=== PATIENT | male | born 1950 | race Two or more races ===

== ENCOUNTER → 2020-06-23 08:53 | Outpatient (BNVA) | payer OTHER, MEDICARE, SELFPAY | PROVIDERS: PCP Physician Assistant; Visit Provider Family Medicine Adult Medicine | DX: M96.1 Postlaminectomy syndrome, not elsewhere classified (principal); Z98.1 Arthrodesis status; Z79.891 Long term (current) use of opiate analgesic | CPT/HCPCS: 99214 ==

== ENCOUNTER 2020-06-26 08:08 | Outpatient (REF) | payer MEDICARE, SELFPAY ==
[2020-06-26 09:00] LABS: Basophils Absolute Auto 0.1 X10*3/uL (0.0-0.2); Basophils Percent Auto 0.7 % (0-2); Eosinophils Absolute Auto 0.4 X10*3/uL (0.0-0.4); Eosinophils Percent Auto 4.4 % (0-4); Hematocrit 41.4 % (42-52); Hemoglobin 13.9 g/dl (14.0-18.0); Imm Gran Abs Auto 0.02 X10*3/uL (0.00-0.03); Imm Gran Pct Auto 0.2 % (0.0-0.4); Lymphocytes Absolute Auto 2.9 X10*3/uL (1.2-4.9); Lymphocytes Percent Auto 34.1 % (20-40); MANUAL DIFF FLAG NO; Mean Corpuscular HGB Conc 33.6 g/dl (31.0-36.0); Mean Corpuscular Hemoglobin 30.9 pg (27.0-33.0); Mean Platelet Volume 10.2 fL (9.4-12.4); Monocytes Absolute Auto 0.9 X10*3/uL (0.1-1.2); Monocytes Percent Auto 10.2 % (2-11); Neutrophils Absolute Auto 4.3 X10*3/uL (2.0-8.3); Neutrophils Percent Auto 50.4 % (45-73); Platelet Count 220 X10*3/uL (160-400); Red Cell Distribution Width 13.3 % (11.0-16.0); White Blood Count 8.6 X10*3/uL (4.8-10.8)
[2020-06-26 09:33] LABS: Alanine Aminotransferase 17 U/L (0-40); Albumin Level 3.9 g/dL (3.5-5.0); Alkaline Phosphatase 112 U/L (39-117); Anion Gap 12 (12-20); Aspartate Amino Transferase 20 U/L (5-37); Bilirubin Total 0.5 mg/dL (0.0-1.0); Blood Urea Nitrogen 19 mg/dL (9-16); Calcium 8.7 mg/dL (8.4-10.2); Carbon Dioxide 29 mmol/L (22-29); Chloride 103 mmol/L (96-108); Cholesterol 112 mg/dL; Estimated Glomerular Filt Rate > 60; Glucose Fasting 103 mg/dL (60-99); HDL Cholesterol 24 mg/dL; LDL Cholesterol Calculated 71 mg/dl; Potassium 4.6 mmol/l (3.3-5.1); Sodium 139 mmol/L (135-145); Triglycerides 89 mg/dL
[2020-06-26 09:54] LABS: TSH reflex Free T4 1.25 mIU/mL (0.32-4.0)
[2020-06-26 12:04] LABS: Creatinine Urine 106.04 mg/dL; Microalbum/Creatinine Ratio Ur 11.3 ug/mg cr
== END 2020-06-26 08:09 | disposition home or self-care (01) ==
LOC: HO.LAB 08:08
PROVIDERS: Visit Provider Physician Assistant
DX: E11.9 Type 2 diabetes mellitus without complications (principal)
CPT/HCPCS: 36415; 80053; 80061; 82043; 84443; 85025

== ENCOUNTER → 2020-07-21 11:03 | Outpatient (BNVA) | payer OTHER, MEDICARE, SELFPAY | PROVIDERS: PCP Physician Assistant; Visit Provider Family Medicine Adult Medicine | DX: M96.1 Postlaminectomy syndrome, not elsewhere classified (principal); M54.12 Radiculopathy, cervical region; Z79.891 Long term (current) use of opiate analgesic | CPT/HCPCS: 99212 ==

== ENCOUNTER 2020-07-31 11:35 | Outpatient (REF) | payer MEDICARE, SELFPAY | END 2020-07-31 11:36 | disposition home or self-care (01) | LOC: HO.LAB 11:35 | PROVIDERS: PCP Physician Assistant; Visit Provider Internal Medicine | DX: Z20.828 Contact with and (suspected) exposure to other viral communicable diseases (principal) | CPT/HCPCS: C9803; U0003 ==

== ENCOUNTER 2020-08-11 17:47 | Emergency (ER) | payer MEDICARE, SELFPAY ==
[2020-08-11 18:00] VITALS: BP 134/72; PULSE 99; RESP 16; TEMP 37; O2SAT 99; BMI 32.1
--- NOTE | 2020-08-11 18:29 | ECG_ITS ---
Test Reason : VOMITING Blood Pressure : / mmHG Vent. Rate : 092 BPM Atrial Rate : 092 BPM P-R Int : 198 ms QRS Dur : 094 ms QT Int : 354 ms P-R-T Axes : 016 060 020 degrees QTc Int : 437 ms Normal sinus rhythm Normal ECG When compared with ECG of 23-MAR-2015 12:31, No significant changes seen Referred By: Tra Sarmiento Electronically Signed By:DIPESH SINGH
--- NOTE | 2020-08-11 18:30 | CT_ITS ---
EXAMINATION: CT ABDOMEN AND PELVIS WITH CONTRAST CLINICAL INFORMATION: Abdominal pain, diarrhea COMPARISON: 08/01/2015 TECHNIQUE: Multidetector volumetric images were obtained from the superior aspect of the liver through the pubic symphysis following administration 85 mL of Omnipaque 350 intravenous contrast. Sagittal and coronal reformatted images were obtained on the technologist's workstation. Oral contrast: No This CT examination was performed using dose optimization techniques as appropriate, variously including the following: *Automated exposure control *Adjustment of mA and/or kV according to patient size (this includes techniques or standardized protocols for targeted exams where dose is matched to indication/reason for exam; i.e. extremities or head) *Use of iterative reconstruction technique DLP: 578 mGy-cm FINDINGS: LUNG BASES: Patchy areas of groundglass opacity are seen in the lung bases, predominantly posteriorly but also seen in the right middle lobe. The findings are new/worsened from the prior study 08/01/2015. LIVER, GALLBLADDER, AND BILIARY TREE: The liver is normal in size, shape, and attenuation. No focal hepatic lesion or biliary ductal dilatation is present. The gallbladder is unremarkable with no evidence of radiopaque gallstones, gallbladder wall thickening, or obvious pericholecystic inflammatory changes. PANCREAS: Unremarkable. SPLEEN: Unremarkable. ADRENAL GLANDS: There is thickening of the adrenal gland but no discrete mass. Normal right adrenal gland. KIDNEYS AND URETERS: There are bilateral renal cysts. Symmetric bilateral renal enhancement. No hydronephrosis. No calculi. BLADDER: UnremarkUnremarkable.ROINTESTINAL TRACT: Stomach and small bowel are nondilated. The appendix is not seen but there are no right lower quadrant inflammatory changes to suggest appendicitis. There is abnormal wall thickening and hyperemia of the terminal ileum, for example image 65/89 and coronal image 39/81 there is slight prominence of the adjacent vasa recta. There is a lesser degree of mild somewhat equivocal wall thickening proximally, for example image 50/89. No evidence of colitis or diverticulitis. ABDOMINAL WALL: No signiNo significant hernia is appreciated.H NODES: Normal. Normal.AR: Normal caliber aorta. Severe circumferential calcified atherosclerotic changes. PELVIC VISCERA: Normal prostate and seminal vesicles. OSSEOUS STRUCTURES: Postoperative changes at L5-S1. Multilevel degenerative changes. CT/CT abdomen pelvis w con IMPRESSION: There is abnormal wall thickening and hyperemia of the terminal ileum with a lesser degree of wall thickening involving the distal ileum. This is a nonspecific finding, most likely an infectious or inflammatory ileitis given the clinical history. Patchy groundglass opacities are seen in the lung bases. Although the appearance is nonspecific, pneumonitis including viral pneumonitis could give this appearance.
[2020-08-11] MEDS: 0.9 % Sodium Chloride 1,000 ML 999 ML IV (19:08)
[2020-08-11 19:15] LABS: Basophils Percent Auto 0.1 % (0-2); Eosinophils Percent Auto 0.3 % (0-4); Hematocrit 39.3 % (42-52); Hemoglobin 13.6 g/dl (14.0-18.0); Imm Gran Abs Auto 0.02 X10*3/uL (0.00-0.03); Imm Gran Pct Auto 0.3 % (0.0-0.4); Lymphocytes Absolute Auto 1.2 X10*3/uL (1.2-4.9); Lymphocytes Percent Auto 17.2 % (20-40); Mean Corpuscular HGB Conc 34.6 g/dl (31.0-36.0); Mean Corpuscular Hemoglobin 30.5 pg (27.0-33.0); Mean Corpuscular Volume 88.1 fL (80-98); Mean Platelet Volume 10.3 fL (9.4-12.4); Monocytes Absolute Auto 0.7 X10*3/uL (0.1-1.2); Monocytes Percent Auto 9.5 % (2-11); Neutrophils Percent Auto 72.6 % (45-73); Platelet Count 182 X10*3/uL (160-400); Red Blood Count 4.46 X10*6/uL (4.60-5.80); Red Cell Distribution Width 13.3 % (11.0-16.0); White Blood Count 6.9 X10*3/uL (4.8-10.8)
[2020-08-11 19:16] LABS: MANUAL DIFF FLAG NO
[2020-08-11] MEDS: ondansetron HCL 4 MG/2 ML VIAL IVPUSH (19:16)
[2020-08-11 19:20] LABS: INTERNATIONAL NORM RATIO 1.3 (0.9-1.1); Prothrombin Time 15.9 SEC (10.8-13.0)
[2020-08-11 19:39] LABS: Alanine Aminotransferase 28 U/L (0-40); Albumin Level 3.8 g/dL (3.5-5.0); Alkaline Phosphatase 85 U/L (39-117); Anion Gap 13 (12-20); Aspartate Amino Transferase 30 U/L (5-37); Bilirubin Total 0.9 mg/dL (0.0-1.0); Blood Urea Nitrogen 12 mg/dL (9-16); Calcium 8.1 mg/dL (8.4-10.2); Carbon Dioxide 25 mmol/L (22-29); Chloride 102 mmol/L (96-108); Estimated Glomerular Filt Rate > 60; Glucose Random 123 mg/dL (60-115); Potassium 3.9 mmol/l (3.3-5.1); Sodium 136 mmol/L (135-145); Total Protein 6.9 g/dL (6.5-8.0)
[2020-08-11] MEDS: iohexoL 350 MG/ML 100 ML INFUS..BTL IV (20:02)
[2020-08-11 20:16] LABS: Influenza A PCR NEGATIVE (Negative); Influenza B PCR NEGATIVE (Negative); Resp Syncy Virus RNA Qual PCR NEGATIVE (Negative); SARS COV2 PCR INHOUSE POSITIVE (Negative)
--- NOTE | 2020-08-11 21:08 | ED_ITS ---
HPI - Nausea/Vomiting/Diarrhea General Chief complaint: Nausea/Vomiting/Diarrhea Stated complaint: DIARRHEA,ABD PAIN,WEAKNESS Time Seen by Provider: 08/11/20 18:24 Source: patient and EMS Mode of arrival: EMS Limitations: no limitations History of Present Illness HPI Narrative: 70-year-old male with past medical history significant for coronary artery disease status post MD and stenting in 2000, hypertension, de pression, chronic back pain, hyperlipidemia, diabetes who presents today with complaint of ongoing nausea vomiting diarrhea on off for the past 2 weeks. He otherwise denies any chest pain or shortness of breath. States every time he eats something he will have a better of stomach pain and diarrhea. He denies any fever or chills. No runny nose/congestion or cough. MD elicited complaint: nausea, vomiting, diarrhea and abdominal pain Description of vomiting: watery Associated nausea: Yes Associated abdominal pain: Yes Location of pain: diffuse Severity: moderate Quality: cramping Associated symptoms: denies other symptoms Related Data Home Medications Medication Instructions Recorded Confirmed amlodipine 10 mg tablet 10 mg PO DAILY 06/22/20 07/21/20 atorvastatin 80 mg tablet 80 mg PO DAILY 06/22/20 07/21/20 clonazepam 0.5 mg tablet 0.5 mg PO Q12H 06/22/20 07/21/20 clopidogrel 75 mg tablet 75 mg PO DAILY 06/22/20 07/21/20 cyclobenzaprine 10 mg tablet 10 mg PO Q8H PRN 06/22/20 07/21/20 fluoxetine 20 mg capsule 80 mg PO DAILY 06/22/20 07/21/20 fluticasone propionate 50 1 spray INTRANASAL DAILY 06/22/20 07/21/20 mcg/actuation nasal spray,suspension gabapentin 800 mg tablet 800 mg PO Q8H 06/22/20 07/21/20 glipizide 2.5 mg tablet, extended 2.5 mg PO DAILY 06/22/20 07/21/20 release 24 hr losartan 100 1 tab PO DAILY 06/22/20 07/21/20 mg-hydrochlorothiazide 25 mg tablet metformin 1,000 mg tablet 1,000 mg PO BID 06/22/20 07/21/20 metoprolol tartrate 100 mg tablet 100 mg PO BID 06/22/20 07/21/20 omeprazole 20 mg capsule,delayed 20 mg PO DAILY 06/22/20 07/21/20 release tramadol 50 mg tablet 50 mg PO Q8H 06/22/20 07/21/20 triamcinolone acetonide 0.5 % applic TOPICAL BID 06/22/20 07/21/20 topical cream Previous Rx's Medication Instructions Recorded blood sugar diagnostic 1 strip MISCELLANEOUS DAILY 30 06/29/20 Days #100 strip chlorhexidine gluconate 0.12 % 1 applic PO TID 30 Days #946 ml 07/20/20 mouthwash buprenorphine HCl 450 mcg buccal 450 mcg BUCCAL Q12H 30 Days #60 ea 07/21/20 film levofloxacin 500 mg PO DAILY 7 Days #7 tab 08/11/20 metronidazole [Flagyl] 500 mg PO Q12H 7 Days #14 tab 08/11/20 Allergies Allergy/AdvReac Type Severity Reaction Status Date / Time No Known Allergies Allergy Verified 07/21/20 11:27 [No Known Allergies*] Review of Systems Review of Systems: Constitutional: No Weight loss, No Fever, No Chills, No Night Sweats, No Fatigue, No Malaise ENT/Mouth: No Hearing loss, No Ear Pain, No Nasal Congestion, No Sinus Pain, No Hoarseness, No sore throat, No Rhinorrhea, No Swallowing Difficulty Eyes: No Eye Pain, No Swelling, No Redness, No Foreign Body, No Discharge, No Vision Changes Cardiovascular: No Chest Pain, No SOB, No Dyspnea on Exertion, No Orthopnea, No Edema, No Palpitations Respiratory: No Cough, No Sputum, No Wheezing, No Smoke Exposure, No Dyspnea Gastrointestinal: As noted in HPI, No Hematochezia, No Melena Genitourinary: no irregular bleeding, No Dysuria, No Urinary Frequency, No Hematuria, No Urinary Incontinence, No Urgency, No Flank Pain, No Urinary Flow Changes, No Hesitancy Musculoskeletal: No joint pain, No Myalgias, No Joint Swelling Skin: No Skin Lesions, No rash Neuro: No Weakness, No Numbness, No Paresthesias, No Loss of Consciousness, No Dizziness, No Headache Psych: No Anxiety/Panic, No Depression, No SI/HI/AH/VH, No Social Issues Heme/Lymph: No Bruising, No Bleeding,No Lymphadenopathy Endocrine: No Polyuria, No Polydipsia, No Temperature Intolerance Yes all other systems are reviewed and are negative Gastrointestinal: Gastrointestinal: Reports nausea PMFSH Past Medical History Medical History (Updated 08/11/20 @ 21:31 by Tra Sarmiento NP) Cervical radiculopathy Coronary artery disease (CAD) excluded Depression Diabetes mellitus Diabetic nephropathy Failed back syndrome, lumbar Hypertension Poor dental hygiene Type 2 diabetes mellitus without complications Surgical History (Updated 06/23/20 @ 09:35 by Jean-Paul Espinoza DO) History of heart artery stent History of lumbar fusion Social History Social History (Updated 06/23/20 @ 09:37 by Jean-Paul Espinoza DO) Alcohol intake: never Smoking Status: Never smoker Use of substances other than those prescribed or required for medical reasons: No Advance Directives: No Advance Directives Information Provided: Yes Current occupation: disabled Physical Exam Vital Signs: Vital Signs: Last Vital Signs Temp 98.6 F 08/11/20 18:00 Pulse 99 08/11/20 18:00 Resp 16 08/11/20 18:00 BP 134/72 08/11/20 18:00 Pulse Ox 99 08/11/20 18:00 Body Mass Index 32.1 Reviewed Const: General: cooperative and healthy appearing; No acute distress or intoxicated appearing Nutritional Appearance: average body habitus Orientation/consciousness: patient oriented x3 HENMT: Head: Yes normal to inspection Ears: hearing grossly normal bilaterally Eyes: General: appearance normal, both eyes and all related structures Visual Hall: normal visual hall by confrontation Neck: Neck: Yes normal visual inspection and No tender Thyroid: Thyroid normal Chest: Chest palpation & inspection: normal inspection of the chest Resp: Effort & Inspection: normal respiratory effort Auscultation: clear to auscultation bilaterally Cardio: Jugular venous distension: no JVD Rhythm: regular rhythm Heart sounds: S1 normal heart sound present and S2 normal heart sound present GI: Inspection: Yes normal to inspection Palpation (GI): Soft to palpation Percussion: Yes normal to percussion Auscultation: normal bowel sounds : General: Yes no CVA tenderness Back/Spine/Pelvis: Back: no CVA tenderness Skin: General skin exam: no rashes or lesions noted Neuro: General: patient oriented x3 Extrem: General: Yes normal to inspection Course Course Course Narrative: Labs overall stable. No leukocytosis. Electrolytes without any significant derangement. Renal function intact. Patient has been resting comfortably has not had any diarrhea, nausea vomiting here. I did put in for stool analysis but unable to provide ice pack here. Advised if he continues to have diarrhea can contact primary care doctor for stool analysis. CT scan of the abdomen shows shows nonspecific findings descriptive of inflammatory ileitis in addition patchy ground-glass opacities at the lung bases although he has no upper respiratory symptoms. No runny Marissa. His COVID-19 is pending rapid respiratory panel was done here. Plan will be discharge with Flagyl Levaquin for the ileitis with gradual dietary progression as tolerated with clear return follow-up instructions. MDM - Nausea/Vomiting/Diarrhea Differential Diagnosis Differential diagnosis: Likely gastroenteritis and dehydration; Unlikely traveler's diarrhea, food poisoning, clostridium difficile infection and drug- induced nausea and vomiting Medical Records Attestation: I reviewed the patient's medical records. Lab Data Attestation: I reviewed the patient's lab results. Result diagrams: 08/11/20 19:07 08/11/20 19:07 Labs: Lab Results 08/11/20 08/11/20 08/11/20 Range/Units 19:07 19:07 19:07 WBC 6.9 (4.8-10.8) X10*3/uL RBC 4.46 L (4.60-5.80) X10*6/uL Hgb 13.6 L (14.0-18.0) g/dl Hct 39.3 L (42-52) % MCV 88.1 (80-98) fL MCH 30.5 (27.0-33.0) pg MCHC 34.6 (31.0-36.0) g/dl RDW 13.3 (11.0-16.0) % Plt Count 182 (160-400) X10*3/uL MPV 10.3 (9.4-12.4) fL Immature Gran % (Auto) 0.3 (0.0-0.4) % Neut % (Auto) 72.6 (45-73) % Lymph % (Auto) 17.2 L (20-40) % [place] % (Auto) 9.5 (2-11) % Eos % (Auto) 0.3 (0-4) % Baso % (Auto) 0.1 (0-2) % Lymph # (Auto) 1.2 (1.2-4.9) X10*3/uL [place] # (Auto) 0.7 (0.1-1.2) X10*3/uL Eos # (Auto) 0.0 (0.0-0.4) X10*3/uL Baso # (Auto) 0.0 (0.0-0.2) X10*3/uL Abs Immat Gran (auto) 0.02 (0.00-0.03) X10*3/uL Absolute Neuts (auto) 5.0 (2.0-8.3) X10*3/uL Absolute Nucleated RBC 0.000 (0.0-0.012) X10*3/uL Nucleated RBC % (auto) 0.0 (0.0-0.2) /100WBC PT 15.9 H (10.8-13.0) SEC INR 1.3 H (0.9-1.1) Sodium 136 (135-145) mmol/L Potassium 3.9 (3.3-5.1) mmol/l Chloride 102 (96-108) mmol/L Carbon Dioxide 25 (22-29) mmol/L Anion Gap 13 (12-20) BUN 12 (9-16) mg/dL Creatinine 0.88 (0.5-1.4) mg/dL Estim Creat Clear Calc 79.0 Estimated GFR > 60 Random Glucose 123 H (60-115) mg/dL Calcium 8.1 L D (8.4-10.2) mg/dL Total Bilirubin 0.9 (0.0-1.0) mg/dL AST 30 D (5-37) U/L ALT 28 (0-40) U/L Alkaline Phosphatase 85 D (39-117) U/L Total Protein 6.9 (6.5-8.0) g/dL Albumin 3.8 (3.5-5.0) g/dL Coronavirus (PCR) (Negative) Influenza Type A (PCR) (Negative) Influenza Type B (PCR) (Negative) RSV RNA Qual (PCR) (Negative) 08/11/20 Range/Units 19:27 WBC (4.8-10.8) X10*3/uL RBC (4.60-5.80) X10*6/uL Hgb (14.0-18.0) g/dl Hct (42-52) % MCV (80-98) fL MCH (27.0-33.0) pg MCHC (31.0-36.0) g/dl RDW (11.0-16.0) % Plt Count (160-400) X10*3/uL MPV (9.4-12.4) fL Immature Gran % (Auto) (0.0-0.4) % Neut % (Auto) (45-73) % Lymph % (Auto) (20-40) % [place] % (Auto) (2-11) % Eos % (Auto) (0-4) % Baso % (Auto) (0-2) % Lymph # (Auto) (1.2-4.9) X10*3/uL [place] # (Auto) (0.1-1.2) X10*3/uL Eos # (Auto) (0.0-0.4) X10*3/uL Baso # (Auto) (0.0-0.2) X10*3/uL Abs Immat Gran (auto) (0.00-0.03) X10*3/uL Absolute Neuts (auto) (2.0-8.3) X10*3/uL Absolute Nucleated RBC (0.0-0.012) X10*3/uL Nucleated RBC % (auto) (0.0-0.2) /100WBC PT (10.8-13.0) SEC INR (0.9-1.1) Sodium (135-145) mmol/L Potassium (3.3-5.1) mmol/l Chloride (96-108) mmol/L Carbon Dioxide (22-29) mmol/L Anion Gap (12-20) BUN (9-16) mg/dL Creatinine (0.5-1.4) mg/dL Estim Creat Clear Calc Estimated GFR Random Glucose (60-115) mg/dL Calcium (8.4-10.2) mg/dL Total Bilirubin (0.0-1.0) mg/dL AST (5-37) U/L ALT (0-40) U/L Alkaline Phosphatase (39-117) U/L Total Protein (6.5-8.0) g/dL Albumin (3.5-5.0) g/dL Coronavirus (PCR) POSITIVE A (Negative) Influenza Type A (PCR) NEGATIVE (Negative) Influenza Type B (PCR) NEGATIVE (Negative) RSV RNA Qual (PCR) NEGATIVE (Negative) Imaging Data CT scan - abdomen: Radiologist's impression: [address] [address] [address] Scan Report Signed Patient: Steven Ann#: [id number] : 2Acct:[id number] Age/Sex: 70 / MADM Date: 08/11/20 Loc: HO.ED Attending Dr: Ordering Physician: Tra Sarmiento NP Date of Service: 08/11/20 Procedure(s): CT abdomen pelvis w con Accession Number(s): [id number] cc: Tra Sarmiento [employer] CLERK~ EXAMINATION: CT ABDOMEN AND PELVIS WITH CONTRAST CLINICAL INFORMATION: Abdominal pain, diarrhea COMPARISON: 08/01/2015 TECHNIQUE: Multidetector volumetric images were obtained from the superior aspect of the liver through the pubic symphysis following administration 85 mL of Omnipaque 350 intravenous contrast. Sagittal and coronal reformatted images were obtained on the technologist's workstation. Oral contrast: No This CT examination was performed using dose optimization techniques as appropriate, variously including the following: *Automated exposure control *Adjustment of mA and/or kV according to patient size (this includes techniques or standardized protocols for targeted exams where dose is matched to indication/reason for exam; i.e. extremities or head) *Use of iterative reconstruction technique DLP: 578 mGy-cm FINDINGS: LUNG BASES: Patchy areas of groundglass opacity are seen in the lung bases, predominantly posteriorly but also seen in the right middle lobe. The findings are new/worsened from the prior study 08/01/2015. LIVER, GALLBLADDER, AND BILIARY TREE: The liver is normal in size, shape, and attenuation. No focal hepatic lesion or biliary ductal dilatation is present. The gallbladder is unremarkable with no evidence of radiopaque gallstones, gallbladder wall thickening, or obvious pericholecystic inflammatory changes. PANCREAS: Unremarkable. SPLEEN: Unremarkable. ADRENAL GLANDS: There is thickening of the adrenal gland but no discrete mass. Normal right adrenal gland. KIDNEYS AND URETERS: There are bilateral renal cysts. Symmetric bilateral renal enhancement. No hydronephrosis. No calculi. BLADDER: UnremarkUnremarkable.ROINTESTINAL TRACT: Stomach and small bowel are nondilated. The appendix is not seen but there are no right lower quadrant inflammatory changes to suggest appendicitis. There is abnormal wall thickening and hyperemia of the terminal ileum, for example image 65/89 and coronal image 39/81 there is slight prominence of the adjacent vasa recta. There is a lesser degree of mild somewhat equivocal wall thickening proximally, for example image 50/89. No evidence of colitis or diverticulitis. ABDOMINAL WALL: No signiNo significant hernia is appreciated.H NODES: Normal. Normal.AR: Normal caliber aorta. Severe circumferential calcified atherosclerotic changes. PELVIC VISCERA: Normal prostate and seminal vesicles. OSSEOUS STRUCTURES: Postoperative changes at L5-S1. Multilevel degenerative changes. CT/CT abdomen pelvis w con IMPRESSION: There is abnormal wall thickening and hyperemia of the terminal ileum with a lesser degree of wall thickening involving the distal ileum. This is a nonspecific finding, most likely an infectious or inflammatory ileitis given the clinical history. Patchy groundglass opacities are seen in the lung bases. Although the appearance is nonspecific, pneumonitis including viral pneumonitis could give this appearance. Dictated By:KIRILL BERNARD MD Signed By:<Electronically signed by KIRILL BERNARD MD in OV>08/11/202040 DD/ 1830 TD/TT: Applied Anthropologist: TF Discharge Plan Discharge Clinical Impression: Gastroenteritis, COVID-19 Patient Disposition: Home, Self-Care Instructions: Gastroenteritis (ED), Viral Syndrome (ED) Prescriptions: New metronidazole [Flagyl] 500 mg tablet 500 mg PO Q12H 7 Days Qty: 14 RF: 0 levofloxacin 500 mg tablet 500 mg PO DAILY 7 Days Qty: 7 RF: 0 No Action blood sugar diagnostic [Contour Test Strips] Strip 1 strip miscellaneous DAILY 30 Days Qty: 100 RF: 3 chlorhexidine gluconate 0.12 % mouthwash 1 applic PO TID 30 Days Qty: 946 RF: 4 cyclobenzaprine 10 mg tablet 10 mg PO Q8H PRNRF: 0 metoprolol tartrate 100 mg tablet 100 mg PO BID RF: 0 metformin 1,000 mg tablet 1,000 mg PO BID RF: 0 glipizide 2.5 mg tablet extended release 24hr 2.5 mg PO DAILY RF: 0 fluticasone propionate 50 mcg/actuation spray,suspension 1 spray intranasal DAILY RF: 0 losartan-hydrochlorothiazide 100-25 mg tablet 1 tab PO DAILY RF: 0 omeprazole 20 mg capsule,delayed release(DR/EC) 20 mg PO DAILY RF: 0 clonazepam 0.5 mg tablet 0.5 mg PO Q12H RF: 0 amlodipine 10 mg tablet 10 mg PO DAILY RF: 0 atorvastatin 80 mg tablet 80 mg PO DAILY RF: 0 tramadol 50 mg tablet 50 mg PO Q8H RF: 0 clopidogrel 75 mg tablet 75 mg PO DAILY RF: 0 fluoxetine 20 mg capsule 80 mg PO DAILY RF: 0 triamcinolone acetonide 0.5 % cream topical BID RF: 0 gabapentin 800 mg tablet 800 mg PO Q8H RF: 0 [place] 450 mcg film 450 mcg buccal Q12H 30 Days Qty: 60 RF: 1 Referrals: ED Physician,Generic [Emergency Provider] - 1 week ( phone visit)
== END 2020-08-11 22:08 | disposition home or self-care (01) ==
PROVIDERS: Nurse Practitioner Primary Care; Emergency Provider Internal Medicine
DX: U07.1 COVID-19 (principal); K52.9 Noninfective gastroenteritis and colitis, unspecified; R11.2 Nausea with vomiting, unspecified; I25.10 Atherosclerotic heart disease of native coronary artery without angina pectoris; I10 Essential (primary) hypertension; Z79.899 Other long term (current) drug therapy; Z79.01 Long term (current) use of anticoagulants
CPT/HCPCS: 0241U; 36415; 74177; 80053; 85025; 85610; 93005; 96361; 96374; 99284; J2405; Q9967

== ENCOUNTER 2020-08-26 10:12 | Outpatient (REF) | payer MEDICARE, SELFPAY | END 2020-08-26 10:13 | disposition home or self-care (01) | LOC: HO.LAB 10:12 | PROVIDERS: PCP Physician Assistant; Visit Provider Internal Medicine | DX: Z20.828 Contact with and (suspected) exposure to other viral communicable diseases (principal) | CPT/HCPCS: C9803; U0003 ==

== ENCOUNTER → 2020-09-08 09:15 | Outpatient (BNVA) | payer OTHER, MEDICARE, SELFPAY | PROVIDERS: PCP Physician Assistant; Visit Provider Family Medicine Adult Medicine | DX: M54.12 Radiculopathy, cervical region (principal); M96.1 Postlaminectomy syndrome, not elsewhere classified | CPT/HCPCS: 99212 ==

== ENCOUNTER 2020-10-08 09:16 | Outpatient (REF) | payer MEDICARE, SELFPAY ==
[2020-10-08 10:04] LABS: MANUAL DIFF FLAG NO
[2020-10-08 10:10] LABS: Basophils Absolute Auto 0.1 X10*3/uL (0.0-0.2); Basophils Percent Auto 1.1 % (0-2); Eosinophils Absolute Auto 0.4 X10*3/uL (0.0-0.4); Eosinophils Percent Auto 5.9 % (0-4); Hematocrit 38.9 % (42-52); Hemoglobin 12.9 g/dl (14.0-18.0); Imm Gran Abs Auto 0.01 X10*3/uL (0.00-0.03); Imm Gran Pct Auto 0.1 % (0.0-0.4); Lymphocytes Absolute Auto 2.6 X10*3/uL (1.2-4.9); Lymphocytes Percent Auto 34.8 % (20-40); Mean Corpuscular HGB Conc 33.2 g/dl (31.0-36.0); Mean Corpuscular Volume 93.5 fL (80-98); Monocytes Absolute Auto 0.6 X10*3/uL (0.1-1.2); Monocytes Percent Auto 8.3 % (2-11); Neutrophils Absolute Auto 3.7 X10*3/uL (2.0-8.3); Neutrophils Percent Auto 49.8 % (45-73); Platelet Count 238 X10*3/uL (160-400); Red Blood Count 4.16 X10*6/uL (4.60-5.80); Red Cell Distribution Width 15.1 % (11.0-16.0); White Blood Count 7.4 X10*3/uL (4.8-10.8)
[2020-10-08 10:24] LABS: Estimated Average Glucose 114 mg/dL; Hemoglobin A1c % 5.6 %
[2020-10-08 10:31] LABS: Alanine Aminotransferase 26 U/L (0-40); Albumin Level 4.1 g/dL (3.5-5.0); Alkaline Phosphatase 120 U/L (39-117); Anion Gap 11 (12-20); Aspartate Amino Transferase 21 U/L (5-37); Bilirubin Total 0.6 mg/dL (0.0-1.0); Blood Urea Nitrogen 14 mg/dL (9-16); Calcium 8.9 mg/dL (8.4-10.2); Carbon Dioxide 28 mmol/L (22-29); Chloride 105 mmol/L (96-108); Cholesterol 134 mg/dL; Estimated Glomerular Filt Rate > 60; Glucose Fasting 98 mg/dL (60-99); HDL Cholesterol 32 mg/dL; LDL Cholesterol Calculated 85 mg/dl; Potassium 4.4 mmol/L (3.3-5.1); Sodium 140 mmol/L (135-145); Total Protein 7.3 g/dL (6.5-8.0); Triglycerides 88 mg/dL
[2020-10-08 10:54] LABS: TSH reflex Free T4 1.31 uIU/mL (0.32-4.0)
[2020-10-08 10:58] LABS: Creatinine Urine 186.29 mg/dL; Microalbum/Creatinine Ratio Ur 28.4 ug/mg cr
== END 2020-10-08 09:17 | disposition home or self-care (01) ==
LOC: HO.LAB 09:16
PROVIDERS: PCP Physician Assistant; Visit Provider Physician Assistant
DX: I10 Essential (primary) hypertension (principal); E11.9 Type 2 diabetes mellitus without complications
CPT/HCPCS: 36415; 80053; 80061; 82043; 83036; 84443; 85025

== ENCOUNTER → 2020-11-10 09:39 | Outpatient (BNVA) | payer OTHER, MEDICARE, SELFPAY | PROVIDERS: PCP Physician Assistant; Visit Provider Family Medicine Adult Medicine | DX: M54.12 Radiculopathy, cervical region (principal); M96.1 Postlaminectomy syndrome, not elsewhere classified; Z98.1 Arthrodesis status; Z79.899 Other long term (current) drug therapy | CPT/HCPCS: 99212 ==

== ENCOUNTER 2021-03-15 10:14 | Outpatient (REF) | payer MEDICARE, SELFPAY ==
--- NOTE | ~2021-03-15 | MR_ITS ---
MR LUMBAR SPINE WITHOUT CONTRAST CLINICAL INFORMATION: Lumbar region radiculopathy COMPARISON: None available. TECHNIQUE: MRI of the lumbar spine was obtained using routine sequences without contrast. FINDINGS: There are 5 nonrib-bearing lumbar-type vertebral bodies. There are postoperative changes following interbody cage placement at L5-S1. Nonsurgical disc volumes are preserved. There is partial disc desiccation at all lumbar levels. There is no bone marrow edema. There are no acute fractures. Multilevel endplate osteophytes. Conus terminates at the L1-L2 level. There is bilateral perinephric stranding. Simple bilateral renal cysts. L1-L2: Small annular disc bulge and mild bilateral facet arthropathy. Dorsal annular fissure. No central canal stenosis and no significant foraminal stenosis. L2-L3: Small annular disc bulge and mild bilateral facet arthropathy. No central canal stenosis. Mild foraminal encroachment bilaterally. L3-L4: Small annular disc bulge with a superimposed far left lateral disc protrusion that likely contacts the extraforaminal left L3 nerve root. There is no central canal stenosis. There is mild to moderate bilateral foraminal stenosis. L4-L5: There is a diffuse annular disc bulge the superimposed broad-based right paracentral disc protrusion that results in mass effect on the traversing right greater than left L5 nerve roots within the subarticular zones. There is also a large left foraminal/extraforaminal disc protrusion that compresses the exiting left L4 nerve root at the left foraminal/extraforaminal junction. L5-S1: There are postoperative changes following interbody cage placement. Osteophytic ridging mildly narrows the central canal and results in mild to moderate bilateral foraminal stenosis. MR/MR lumbar spine wo con IMPRESSION: - At L4-L5, there is a large left lateral disc protrusion that compresses the exiting left L4 nerve root of the left foraminal/extraforaminal junction on image 18 of series 6. A broad-based right paracentral disc protrusion at this level results in mass effect on the traversing right greater than left L5 nerve roots within the subarticular zones. - At L3-L4, a far left lateral disc protrusion likely contacts the extraforaminal left L3 nerve root. - At L5-S1, there are postoperative changes following interbody cage placement. Osteophytic ridging mildly narrows the central canal and results in mild to moderate bilateral foraminal stenosis.
--- NOTE | ~2021-03-15 | XR_ITS ---
EXAMINATION: XR LUMBOSACRAL SPINE CLINICAL INFORMATION: Lumbar radiculopathy. COMPARISON: Lumbar spine CT dated 08/01/2015 TECHNIQUE: Three views of the lumbosacral spine. FINDINGS: Redemonstration of intervertebral disc hardware at L5-S1. No evidence of hardware complication. No acute fracture or subluxation. The lumbar lordosis is maintained. No loss of vertebral body height. Multilevel loss of intervertebral disc height with anterior endplate osteophytes, increased when compared to the prior CT. Bilateral facet arthropathy within the lower lumbar spine, also increased. Atherosclerotic calcifications. XR/XR lumbar spine 2-3V IMPRESSION: 1. Intervertebral disc hardware at L5-S1 without evidence of hardware complication. 2. Increasing multilevel degenerative disc disease and lower lumbar spine facet arthropathy.
[2021-03-15 10:48] LABS: Hematocrit 47.4 % (42-52); Hemoglobin 15.9 g/dl (14.0-18.0); Mean Corpuscular HGB Conc 33.5 g/dl (31.0-36.0); Mean Corpuscular Hemoglobin 30.4 pg (27.0-33.0); Mean Corpuscular Volume 90.6 fL (80-98); Mean Platelet Volume 9.9 fL (9.4-12.4); Platelet Count 245 X10*3/uL (160-400); Red Blood Count 5.23 X10*6/uL (4.60-5.80); Red Cell Distribution Width 13.2 % (11.0-16.0); White Blood Count 11.3 X10*3/uL (4.8-10.8)
[2021-03-15 12:03] LABS: Creatinine Urine 180.75 mg/dL; Microalbum/Creatinine Ratio Ur 92.3 ug/mg cr
[2021-03-15 12:22] LABS: Alanine Aminotransferase 21 U/L (0-40); Albumin Level 4.3 g/dL (3.5-5.0); Alkaline Phosphatase 128 U/L (39-117); Anion Gap 15 (12-20); Aspartate Amino Transferase 20 U/L (5-37); Bilirubin Total 0.8 mg/dL (0.0-1.0); Blood Urea Nitrogen 22 mg/dL (9-16); Calcium 9.6 mg/dL (8.4-10.2); Carbon Dioxide 27 mmol/L (22-29); Chloride 103 mmol/L (96-108); Cholesterol 128 mg/dL; Estimated Glomerular Filt Rate > 60; Glucose Fasting 107 mg/dL (60-99); HDL Cholesterol 33 mg/dL; LDL Cholesterol Calculated 73 mg/dl; Potassium 3.7 mmol/L (3.3-5.1); Sodium 141 mmol/L (135-145); Triglycerides 112 mg/dL
[2021-03-15 12:29] LABS: TSH reflex Free T4 1.26 uIU/mL (0.32-4.0)
[2021-03-15 12:46] LABS: Prostate Specific Antigen Scr 0.15 ng/mL (<0.05-4.0)
== END 2021-03-15 10:15 | disposition home or self-care (01) ==
LOC: HO.MRI 10:14
PROVIDERS: PCP Physician Assistant; Visit Provider Physician Assistant
DX: M54.16 Radiculopathy, lumbar region (principal); I10 Essential (primary) hypertension; Z12.5 Encounter for screening for malignant neoplasm of prostate
CPT/HCPCS: 36415; 72100; 72148; 80053; 80061; 82043; 84153; 84443; 85027

== ENCOUNTER 2021-09-29 10:07 | Outpatient (REF) | payer MEDICARE, SELFPAY ==
[2021-09-29 10:37] LABS: Hematocrit 46.1 % (42.0-52.0); Hemoglobin 15.1 g/dl (14.0-18.0); Mean Corpuscular HGB Conc 32.8 g/dl (31.0-36.0); Mean Corpuscular Hemoglobin 30.1 pg (27.0-33.0); Mean Platelet Volume 10.2 fL (9.4-12.4); Platelet Count 193 X10*3/uL (160-400); Red Blood Count 5.01 X10*6/uL (4.60-5.80); Red Cell Distribution Width 13.6 % (11.0-16.0); White Blood Count 7.7 X10*3/uL (4.8-10.8)
[2021-09-29 11:01] LABS: Estimated Average Glucose 123 mg/dL; Hemoglobin A1c % 5.9 %
[2021-09-29 11:32] LABS: Amphetamine Screen Urine Not Detected (Not Detect); Barbiturates, Urine Not Detected (Not Detect); Benzodiazepines Screen Urine Not Detected (Not Detect); Cannabinoid Screen Urine Not Detected (Not Detect); Cocaine Screen Urine Not Detected (Not Detect); Fentanyl, urine Not Detected (Not Detect); Opiate Screen Urine Not Detected (Not Detect); Phencyclidine Screen Urine Not Detected (Not Detect)
[2021-09-29 11:42] LABS: Alanine Aminotransferase 25 U/L (0-40); Albumin Level 4.1 g/dL (3.5-5.0); Alkaline Phosphatase 127 U/L (39-117); Anion Gap 12 (12-20); Aspartate Amino Transferase 21 U/L (5-37); Bilirubin Total 0.5 mg/dL (0.0-1.0); Blood Urea Nitrogen 17 mg/dL (9-16); Calcium 9.6 mg/dL (8.4-10.2); Carbon Dioxide 27 mmol/L (22-29); Chloride 108 mmol/L (96-108); Cholesterol 129 mg/dL; Estimated Glomerular Filt Rate > 60; Glucose Fasting 116 mg/dL (60-99); HDL Cholesterol 28 mg/dL; LDL Cholesterol Calculated 81 mg/dl; Potassium 4.6 mmol/L (3.3-5.1); Sodium 142 mmol/L (135-145); Total Protein 7.6 g/dL (6.5-8.0); Triglycerides 104 mg/dL
[2021-09-29 12:09] LABS: Prostate Specific Antigen Scr 0.13 ng/mL (<0.05-4.0); TSH reflex Free T4 1.04 uIU/mL (0.32-4.0)
== END 2021-09-29 10:08 | disposition home or self-care (01) ==
LOC: HO.LAB 10:07
PROVIDERS: PCP Physician Assistant; Visit Provider Physician Assistant
DX: Z12.5 Encounter for screening for malignant neoplasm of prostate (principal); I10 Essential (primary) hypertension; E11.9 Type 2 diabetes mellitus without complications; M51.06 Intervertebral disc disorders with myelopathy, lumbar region
CPT/HCPCS: 80053; 80061; 80307; 83036; 84153; 84443; 85027

== ENCOUNTER 2021-12-22 09:20 | Outpatient (REF) | payer MEDICARE, SELFPAY ==
[2021-12-22 10:28] LABS: Mean Corpuscular HGB Conc 33.3 g/dl (31.0-36.0); Mean Corpuscular Hemoglobin 30.5 pg (27.0-33.0); Mean Corpuscular Volume 91.5 fL (80.0-98.0); Mean Platelet Volume 10.9 fL (9.4-12.4); Platelet Count 207 X10*3/uL (160-400); Red Blood Count 4.59 X10*6/uL (4.60-5.80); Red Cell Distribution Width 13.2 % (11.0-16.0); White Blood Count 7.1 X10*3/uL (4.8-10.8)
[2021-12-22 10:55] LABS: Estimated Average Glucose 123 mg/dL; Hemoglobin A1c % 5.9 %
[2021-12-22 11:02] LABS: Creatinine Urine 143.32 mg/dL; Microalbum/Creatinine Ratio Ur 27.2 ug/mg cr
[2021-12-22 11:13] LABS: Alanine Aminotransferase 30 U/L (0-40); Albumin Level 3.9 g/dL (3.5-5.0); Alkaline Phosphatase 117 U/L (39-117); Anion Gap 11 (12-20); Aspartate Amino Transferase 24 U/L (5-37); Bilirubin Total 0.2 mg/dL (0.0-1.0); Blood Urea Nitrogen 17 mg/dL (9-16); Calcium 9.2 mg/dL (8.4-10.2); Carbon Dioxide 28 mmol/L (22-29); Chloride 107 mmol/L (96-108); Cholesterol 124 mg/dL; Estimated Glomerular Filt Rate > 60; Glucose Fasting 100 mg/dL (60-99); HDL Cholesterol 29 mg/dL; LDL Cholesterol Calculated 77 mg/dl; Potassium 4.9 mmol/L (3.3-5.1); Sodium 141 mmol/L (135-145); Triglycerides 92 mg/dL
[2021-12-22 11:14] LABS: Prostate Specific Antigen Scr 0.12 ng/mL (<0.05-4.0); TSH reflex Free T4 1.74 uIU/mL (0.32-4.0)
== END 2021-12-22 09:21 | disposition home or self-care (01) ==
LOC: HO.LAB 09:20
PROVIDERS: PCP Physician Assistant; Visit Provider Physician Assistant
DX: Z12.5 Encounter for screening for malignant neoplasm of prostate (principal); E11.9 Type 2 diabetes mellitus without complications; I10 Essential (primary) hypertension
CPT/HCPCS: 36415; 80053; 80061; 82043; 83036; 84153; 84443; 85027

== ENCOUNTER 2022-08-30 08:24 | Outpatient (REF) | payer MEDICARE, SELFPAY ==
[2022-08-30 08:39] LABS: Hematocrit 43.7 % (42.0-52.0); Hemoglobin 14.5 g/dl (14.0-18.0); Mean Corpuscular HGB Conc 33.2 g/dl (31.0-36.0); Mean Corpuscular Hemoglobin 30.7 pg (27.0-33.0); Mean Corpuscular Volume 92.6 fL (80.0-98.0); Mean Platelet Volume 9.8 fL (9.4-12.4); Platelet Count 225 X10*3/uL (160-400); Red Blood Count 4.72 X10*6/uL (4.60-5.80); Red Cell Distribution Width 13.4 % (11.0-16.0); White Blood Count 6.7 X10*3/uL (4.8-10.8)
[2022-08-30 08:47] LABS: Estimated Average Glucose 120 mg/dL; Hemoglobin A1c % 5.8 %
[2022-08-30 09:25] LABS: Alanine Aminotransferase 25 U/L (0-40); Albumin Level 3.9 g/dL (3.5-5.0); Alkaline Phosphatase 117 U/L (39-117); Anion Gap 10 (12-20); Aspartate Amino Transferase 23 U/L (5-37); Bilirubin Total 0.4 mg/dL (0.0-1.0); Blood Urea Nitrogen 16 mg/dL (9-16); Carbon Dioxide 27 mmol/L (22-29); Chloride 108 mmol/L (96-108); Cholesterol 138 mg/dL; Estimated Glomerular Filt Rate > 60; Glucose Fasting 114 mg/dL (60-99); HDL Cholesterol 35 mg/dL; LDL Cholesterol Calculated 86 mg/dl; Potassium 4.2 mmol/L (3.3-5.1); Sodium 141 mmol/L (135-145); TSH reflex Free T4 0.68 uIU/mL (0.32-4.0); Total Protein 6.9 g/dL (6.5-8.0); Triglycerides 86 mg/dL
[2022-08-30 09:33] LABS: Creatinine Urine 150.66 mg/dL; Microalbum/Creatinine Ratio Ur 83.6 ug/mg cr
== END 2022-08-30 08:25 | disposition home or self-care (01) ==
LOC: HO.LAB 08:24
PROVIDERS: PCP Physician Assistant; Visit Provider Physician Assistant
DX: Z03.89 Encounter for observation for other suspected diseases and conditions ruled out (principal); I10 Essential (primary) hypertension; E11.9 Type 2 diabetes mellitus without complications
CPT/HCPCS: 36415; 80053; 80061; 82043; 83036; 84443; 85027

== ENCOUNTER 2022-12-21 07:50 | Outpatient (REF) | payer OTHER, SELFPAY ==
[2022-12-21 08:46] LABS: Hematocrit 43.6 % (42.0-52.0); Hemoglobin 14.3 g/dl (14.0-18.0); Mean Corpuscular HGB Conc 32.8 g/dl (31.0-36.0); Mean Corpuscular Hemoglobin 30.5 pg (27.0-33.0); Mean Platelet Volume 10.7 fL (9.4-12.4); Platelet Count 166 X10*3/uL (160-400); Red Blood Count 4.69 X10*6/uL (4.60-5.80); Red Cell Distribution Width 14.2 % (11.0-16.0); White Blood Count 7.1 X10*3/uL (4.8-10.8)
[2022-12-21 09:20] LABS: Creatinine Urine 117.35 mg/dL
[2022-12-21 09:31] LABS: Alanine Aminotransferase 25 U/L (0-40); Albumin Level 4.1 g/dL (3.5-5.0); Alkaline Phosphatase 114 U/L (39-117); Anion Gap 12 (12-20); Aspartate Amino Transferase 23 U/L (5-37); Bilirubin Total 0.7 mg/dL (0.0-1.0); Blood Urea Nitrogen 17 mg/dL (9-16); Carbon Dioxide 27 mmol/L (22-29); Chloride 107 mmol/L (96-108); Estimated Glomerular Filt Rate > 60; Glucose Fasting 100 mg/dL (60-99); Potassium 4.3 mmol/L (3.3-5.1); Sodium 142 mmol/L (135-145); Total Protein 6.9 g/dL (6.5-8.0)
[2022-12-21 09:38] LABS: TSH reflex Free T4 1.73 uIU/mL (0.32-4.0)
== END 2022-12-21 07:51 | disposition home or self-care (01) ==
LOC: HO.LAB 07:50
PROVIDERS: PCP Physician Assistant; Visit Provider Physician Assistant
DX: E11.9 Type 2 diabetes mellitus without complications (principal); I10 Essential (primary) hypertension
CPT/HCPCS: 36415; 80053; 82043; 84443; 85027

== ENCOUNTER 2023-04-17 10:28 | Outpatient (AMB) | payer OTHER, SELFPAY ==
[2023-04-17 10:31] VITALS: BP 138/82; PULSE 75; O2SAT 96; BMI 34.7
--- NOTE | 2023-04-17 10:31 | A.OFFPC_ITS ---
Vital Signs 04/17/23 10:31 Height 5 ft 4 in Weight 202 lb 2 oz BMI 34.7 BP 138/82 Blood Pressure Location Lt brachial Position Sitting Pulse 75 Pulse Source Pulse Oximeter Pulse Oximetry (%) 96 Oxygen Delivery Method Room Air Intake Visit Reasons: medical visit - chronic conditions Allergies No Known Allergies [No Known Allergies*] Allergy (Verified 04/17/23 10:41) Medication List - Last Reconciled 04/17/23 by Tc Peoples PA-C aluminum chloride in alcohol 6.25% (Xerac AC) 1 appl topical Q OTHER DAY amlodipine 10 mg PO DAILY aspirin 81 mg PO DAILY atorvastatin 80 mg PO DAILY betamethasone dipropionate 0.05% 1 appl topical DAILY PRN blood sugar diagnostic (Contour Test Strips) 1 strip miscellaneous DAILY 30 days buprenorphine HCl (Belbuca) 450 mcg buccal Q12H 30 days chlorhexidine gluconate 0.12% 15 mL PO TID clonazepam 0.5 mg PO DAILY 30 days clopidogrel 75 mg PO DAILY cyclobenzaprine 10 mg PO Q8H 30 days fludrocortisone 0.1 mg PO DAILY fluoxetine 80 mg (4 x 20 mg) PO DAILY glipizide ER 2.5 mg PO DAILY hydrocortisone valerate 0.2% 1 appl topical BID PRN 15 days losartan 100 mg PO DAILY metformin 1,000 mg PO BID metoprolol tartrate 25 mg PO BID miscellaneous medical supply miscellaneous; TENS Unit and pads ofloxacin 0.3% 1 drp ophthalmic (eye) BID 30 days omeprazole 20 mg PO DAILY prednisolone acetate 1% 1 drp ophthalmic (eye) QID Tobacco use date assessed: 09/08/22 HPI medical visit - chronic conditions HPI Details Patient is a 73 year-old male? here today for a medical follow-up visit..? Patient has a past medical history significant for generalized anxiety disorder, coronary artery disease ,lumbar radiculopathy failed back syndrome, hypertension, type 2 diabetes. .. HTN:? blood pressure acceptable today in office.? Fortunately patient asymptomatic without any headaches, dizziness, chest discomfort palpitations..?? .. DMII: REport blood sugar at home have been stable ( 125)- most recent A1c has been stable.? He is due for fasting labs and advised to get these done IAN .. Coronary artery disease:? Continues on high dose statin and anti-platelet therapy.? Will continue to follow lipid panel goal LDL to be below 100 optimally below 70. Patient did have episodes syncope about 6 months ago and was started on fludrocortisone by his manager urology.? He has since had no further episodes of syncope or dizziness. Laboratory Tests 12/21/22 12/21/22 12/21/22 08:00 08:03 08:03 RBC 4.69 Hgb 14.3 TSH 1.73 Urine Microalbumin 81.0 PFSH Medical History (Updated 04/18/23 @ 07:52 by Tc Peoples PA-C) Cervical radiculopathy Coronary artery disease (CAD) excluded COVID-19 Depression Diabetes mellitus Diabetic nephropathy Failed back syndrome, lumbar Hypertension Poor dental hygiene Type 2 diabetes mellitus without complications Surgical History History of cardiac catheterization History of colonoscopy History of heart artery stent History of lumbar fusion History of tooth extraction Family History Father No problems noted. 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) Vision needs: Yes (wears glasses.) Questionnaire PHQ-9 Over the last 2 weeks, how often have you been bothered by any of the following problems? 1. Little interest or pleasure in doing things: several days 2. Feeling down, depressed, or hopeless: several days 3. Trouble falling or staying asleep, or sleeping too much: several days 4. Feeling tired or having little energy: several days 5. Poor appetite or overeating: several days 6. Feeling bad about yourself - or that you are a failure or have let yourself or your family down: several days 7. Trouble concentrating on things, such as reading the newspaper or watching television: several days 8. Moving or speaking so slowly that other people could have noticed. Or the opposite - being so fidgety or restless that you have been moving around a lot more than usual: several days 9. Thoughts that you would be better off or of hurting yourself in some way: not at all Total score: 8 Depression Screening Interpretation: Negative 60611 - PHQ-9 Billing: Yes Source: Developed by Drs. Fuad Buchanan, Justina Leyva, [employer] and colleagues, with an educational yolanda from [employer]. Thrive Questionnaire Date Thrive assessed: 04/17/23 I am a: Patient What is your living situation today?: I have a steady place to live Within the past 12 months, did the food you bought not last and you didn't have the money to get more?: Never true Within the past 12 months, did you worry whether your food would run out before you got money to buy more?: Never true Do you have trouble paying for medicines?: No Do you have trouble getting transportation to medical appointments?: No Do you have trouble paying your heating and electricity bill?: No Do you have trouble taking care of your child, family member or friend?: No Do you have trouble with day-to-day activities such as bathing, preparing meals, shopping, managing finances, etc.?: No Are you currently unemployed and looking for a job?: No Are you interested in more education?: No AUDIT C Alcohol Use Questionnaire (AUDIT-C) 1. How often do you have a drink containing alcohol?: Never 3. How often do you have six or more drinks on one occasion?: Never Total Score: 0 KAISER-7 AMB Questionnaire KAISER-7 Date KAISER - 7 assessed: 12/28/22 Feeling nervous, anxious, or on edge: 1 = Several days Not being able to stop or control worryin = Several days Worrying too much about different things: 1 = Several days Trouble relaxin = Several days Being so restless that it is hard to sit still: 1 = Several days Becoming easily annoyed or irritable: 1 = Several days Feeling afraid as if something awful might happen: 0 = Not at all Total KAISER-7 score (0-4 normal; 5-9 mild; 10-14 moderate; 15-21 severe): 6 Source: Developed by Drs. Fuad Buchanan, Justina Leyva, [employer] and colleagues, with an educational yolanda from [employer]. KAISER-7 Assessment Billing KAISER-7 Assessment Tool: KAISER-7 Assessment [id number] Review of Systems Const Denies headache(s) Eyes Denies loss of vision ENT Denies vertigo, Denies dizziness, Denies headache(s) and Denies sore throat Card Denies chest pain, Denies leg edema and Denies lightheadedness Resp Denies cough, Denies hemoptysis and Denies wheezing GI Denies abdominal pain, Denies melena, Denies constipation, Denies diarrhea and Denies vomiting Denies dysuria, Denies urinary frequency and Denies urinary urgency Musc Denies arthralgias, Denies joint swelling, Denies numbness and Denies tingling Neuro Denies Abnormal speech present, Denies behavioral changes, Denies vertigo, Denie s dizziness, Denies headache(s), Denies loss of vision, Denies memory loss, Denies numbness and Denies tingling Psych Denies anxiety, Denies behavioral changes, Denies depression, Denies memory loss and Denies panic attacks Roger/Lymph Denies easy bleeding and Denies easy bruising Aller/Immun Denies wheezing Physical exam (Primary Care) Vital Signs: Last Vital Signs Pulse 75 04/17/23 10:31 BP 138/82 04/17/23 10:31 Pulse Ox 96 04/17/23 10:31 Oxygen Delivery Method Room Air 04/17/23 10:31 BMI result Body Mass Index 34.7 BMI Assessment/Plan discussion: High Tobacco/Smoking Status: Tobacco use Status Tobacco use date assessed 09/08/22 04/17/23 10:42 Patient Tobacco Use Status Former Tobacco user 04/17/23 10:42 e-Cigarette/Vaping Use Never Used 04/17/23 10:42 PHQ-9: PHQ-9 Score PHQ-9: Total score 8 04/17/23 10:46 Depression Screening Interpretation: Negative Thrive Assessment: Date of Thrive Assessment Date Thrive assessed 04/17/23 04/17/23 10:42 Const General: healthy appearing, no acute distress, alert and awake Nutritional Appearance: well nourished Orientation/consciousness: oriented to person, oriented to place and oriented to time [facility] Ears: TM's normal bilaterally General nose exam: Normal nasal mucous membranes and turbinates present Eyes Conjunctivae: conjunctivae normal Sclerae: sclerae normal Pupils: Equal, round and reactive pupils present Neck Neck: Yes no lymphadenopathy and Yes no JVD Thyroid: Thyroid normal Carotids: no bruits Resp Effort & Inspection: normal respiratory effort and not tachypneic Auscultation: no crackles, no rales, no rhonchi and no wheezes Cardio Rate: regular rate Rhythm: regular rhythm Heart sounds: no murmurs and normal S1 and S2 GI Palpation (GI): Soft to palpation, nontender, no hepatomegaly and no splenomegaly Auscultation: normal bowel sounds Skin General skin exam: no rashes or lesions noted and dry skin Neuro General: oriented to person, oriented to place and oriented to time Cranial nerves: Yes Equal, round and reactive pupils present Speech: No Abnormal speech present Gait exam (Neuro): Normal gait present Motor exam (neuro): no tremor noted Extrem Right upper extremity: full ROM Left upper extremity: full ROM Right lower extremity: full ROM; no edema Left lower extremity: full ROM; no edema Psych Mental Status: mental status grossly normal Speech and movement: Normal speech and movement present Affect: normal affect Attitude: cooperative Thought process: Normal thought process present Results AMB Hemoglobin A1c AMB Hemoglobin A1c 6.0 % Last Edit by Ania Parikh MA on 04/17/23 10:44 Results Reviewed Results Reviewed: Laboratory Last Values Hgb A1c (Clinic) 6.0 % (4.0-6.0) 04/17/23 10:43 Assessment and Plan Assessment & Plan (1) Diabetes mellitus: Code(s): E11.9 - Type 2 diabetes mellitus without complications Qualifiers: Diabetes mellitus complication detail: with microalbuminuria Diabetes mellitus complication status: with kidney complications Diabetes mellitus intermodal dispatcher insulin use: without chcf use Diabetes mellitus type: type 2 Qualifi ed Code(s): E11.29 - Type 2 diabetes mellitus with other diabetic kidney complication; R80.9 - Proteinuria, unspecified Plan: Patient's type 2 diabetes well controlled with current insulin therapy. Continues to have microalbuminuria that has been stable. Goal A1c is to remain below 7.0 Of note needs new glucometer and test strips.-- > needs 1 touch (2) Coronary artery disease (CAD) excluded: Code(s): Z03.89 - Encounter for observation for other suspected diseases and conditions ruled out Plan: Patient continues annual follow-up with manager urology. Continues on aspirin and high-dose statin therapy. Most recent lipid panel showing appropriate total cholesterol and LDL. Goal LDL to remain below 100 optimally below 70 (3) Hypertension: Code(s): I10 - Essential (primary) hypertension Qualifiers: Hypertension type: primary hypertension Qualified Code(s): I10 - Essential (primary) hypertension Plan: Patient's blood pressure acceptable today in office. Will continue him on his current dose of antihypertensive medication with goal blood pressure to be below 140/90 (4) Obese: Code(s): E66.9 - Obesity, unspecified Qualifiers: Obesity type: due to excess calories Obesity classification: adult class 1 (BMI 30 - 34.9) Serious obesity comorbidity presence: with serious comorbidity Body mass index: BMI 34.0-34.9 Qualified Code(s): E66.09 - Other obesity due to excess calories; Z68.34 - Body mass index [BMI] 34.0-34.9, adult Plan: Patient does understand his BMI is over 30 will work on being more physically active and adapting to better eating habits to reduce his weight Orders: Orders Comprehensive Fowler. Panel Fast 04/17/23 E11.9 - Type 2 diabetes mellitus without complications Complete Blood Count no Diff 04/17/23 E11.9 - Type 2 diabetes mellitus without complications Lipid Panel 04/17/23 Z03.89 - Encounter for observation for other suspected diseases and conditions ruled out Prostate Specific Antigen Scr 04/17/23 Z03.89 - Encounter for observation for other suspected diseases and conditions ruled out, Z12.5 - Encounter for screening for malignant neoplasm of prostate AMB Hemoglobin A1c 04/17/23 E11.9 - Type 2 diabetes mellitus without complications Medications: New blood-glucose meter (OneTouch Verio Flex Meter) As directed 1 ea 0RF E11.9 - Type 2 diabetes mellitus without complications blood sugar diagnostic (OneTouch Verio test strips) As directed 100 ea 3RF E11.9 - Type 2 diabetes mellitus without complications lancets (OneTouch Delica Plus Lancet) As directed 200 ea 3RF E11.9 - Type 2 diabetes mellitus without complications betamethasone dipropionate 0.05% 1 appl topical DAILY 30 days PRN 45 grams 1RF skin irritation L30.9 - Dermatitis, unspecified Refilled buprenorphine HCl (Belbuca) 450 mcg buccal Q12H 30 days 60 ea 3RF 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, lumbar region clonazepam 0.5 mg PO DAILY 30 days 30 tabs 3RF F41.1 - Generalized anxiety disorder Discontinued hydrocortisone valerate 0.2% Discontinued Reason: Doctor's Order 1 appl topical BID 15 days PRN 45 grams 0RF skin irritation K64.9 - Unspecified hemorrhoids blood sugar diagnostic (Contour Test Strips) Dx e11.9 Discontinued Reason: Doctor's Order 1 strip miscellaneous DAILY 30 days 100 strips 3RF Coding Level of Care Code Est Pt Level 4 (00261) Diagnoses Diabetes mellitus E11.29; R80.9 Diabetes mellitus complication detail: with microalbuminuria Diabetes mellitus complication status: with kidney complications Diabetes mellitus intermodal dispatcher insulin use: without chcf use Diabetes mellitus type: type 2 Coronary artery disease (CAD) excluded Z03.89 Hypertension I10 Hypertension type: primary hypertension Obese E66.09; Z68.34 Obesity type: due to excess calories Obesity classification: adult class 1 (BMI 30 - 34.9) Serious obesity comorbidity presence: with serious comorbidity Body mass index: BMI 34.0-34.9 Additional Codes KAISER-7 Assessment Billing - KAISER-7 Assessment Tool: KAISER-7 Assessment [id number] ([id number])
== END 2023-04-17 11:01 | disposition home or self-care (01) ==
PROVIDERS: PCP Nurse Practitioner Family; Visit Provider Physician Assistant
DX: E11.29 Type 2 diabetes mellitus with other diabetic kidney complication (principal); I10 Essential (primary) hypertension; Z68.34 Body mass index [BMI] 34.0-34.9, adult; E66.09 Other obesity due to excess calories; Z03.89 Encounter for observation for other suspected diseases and conditions ruled out; R80.9 Proteinuria, unspecified
CPT/HCPCS: 83036; 99214

== ENCOUNTER 2023-07-12 09:18 | Outpatient (REF) | payer OTHER, SELFPAY ==
[2023-07-12 10:19] LABS: Mean Corpuscular HGB Conc 33.3 g/dl (31.0-36.0); Mean Platelet Volume 10.5 fL (9.4-12.4); Platelet Count 185 X10*3/uL (160-400); Red Blood Count 4.84 X10*6/uL (4.60-5.80); Red Cell Distribution Width 13.6 % (11.0-16.0); White Blood Count 7.5 X10*3/uL (4.8-10.8)
[2023-07-12 10:46] LABS: Alanine Aminotransferase 28 U/L (0-40); Alkaline Phosphatase 115 U/L (39-117); Anion Gap 13 (12-20); Aspartate Amino Transferase 25 U/L (5-37); Bilirubin Total 0.7 mg/dL (0.0-1.0); Blood Urea Nitrogen 12 mg/dL (9-16); Calcium 9.2 mg/dL (8.4-10.2); Carbon Dioxide 29 mmol/L (22-29); Chloride 107 mmol/L (96-108); Cholesterol 127 mg/dL (<200); Estimated Glomerular Filt Rate > 60; Glucose Fasting 106 mg/dL (60-99); HDL Cholesterol 30 mg/dL (>40); LDL Cholesterol Calculated 75 mg/dL (<100); Potassium 4.6 mmol/L (3.3-5.1); Sodium 144 mmol/L (135-145); Total Protein 7.4 g/dL (6.5-8.0); Triglycerides 112 mg/dL (<150)
[2023-07-12 11:02] LABS: Prostate Specific Antigen Scr 0.15 ng/mL (<0.05-4.0)
== END 2023-07-12 09:19 | disposition home or self-care (01) ==
LOC: HO.LAB 09:18
PROVIDERS: PCP Physician Assistant; Visit Provider Physician Assistant
DX: Z12.5 Encounter for screening for malignant neoplasm of prostate (principal); E11.9 Type 2 diabetes mellitus without complications
CPT/HCPCS: 36415; 80053; 80061; 84153; 85027

== ENCOUNTER 2023-07-20 09:36 | Outpatient (AMB) | payer OTHER, SELFPAY ==
[2023-07-20 10:12] VITALS: BP 154/82; PULSE 64; O2SAT 98; BMI 35.9
--- NOTE | 2023-07-20 10:12 | A.OFFPC_ITS ---
Vital Signs 07/20/23 10:12 Height 5 ft 4 in Weight 209 lb BMI 35.9 BP 154/82 H Blood Pressure Location Lt brachial Position Sitting Pulse 64 Pulse Source Pulse Oximeter Pulse Oximetry (%) 98 Oxygen Delivery Method Room Air Intake Visit Reasons: 6mth Battery Starter Required: No Accompanied by: Self / Same As Patient Allergies No Known Allergies [No Known Allergies*] Allergy (Verified 07/20/23 10:36) Medication List - Last Reconciled 07/20/23 by Tc Peoples PA-C amlodipine 10 mg PO DAILY aspirin 81 mg PO DAILY atorvastatin 80 mg PO DAILY betamethasone dipropionate 0.05% 1 appl topical DAILY PRN 30 days blood sugar diagnostic ([employer] Verio test strips) Testing twice a day blood-glucose meter ([employer] Verio Flex Meter) Testing twice a day buprenorphine HCl (Belbuca) 450 mcg buccal Q12H 30 days chlorhexidine gluconate 0.12% 15 mL PO TID clonazepam 0.5 mg PO DAILY 30 days clopidogrel 75 mg PO DAILY cyclobenzaprine 10 mg PO Q8H 30 days fludrocortisone 0.1 mg PO DAILY fluoxetine 80 mg (4 x 20 mg) PO DAILY lancets ([employer] Delica Plus Lancet) Testing twice a day metformin 1,000 mg PO BID metoprolol tartrate 25 mg PO BID miscellaneous medical supply miscellaneous; TENS Unit and pads ofloxacin 0.3% 1 drp ophthalmic (eye) BID 30 days omeprazole 20 mg PO DAILY prednisolone acetate 1% 1 drp ophthalmic (eye) QID Tobacco use date assessed: 09/08/22 Fall risk assessment: 1 Fall in past year Last assessed Fall Risk: 07/20/23 Dental Screening Dental Screen Date: 07/20/23 Did you have a dental visit in the last 12 months?: Yes Did you have a dental problem in the last 6 months where you did not have access to dental care?: No Was dental information given to patient?: Patient has dentist HPI 6mth HPI Details Patient is a 73 -year-old male here today fora [facility] visit..? 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 He was seeing neurosurgeon and Dr. Get montaño at [facility].? He is also seeing pain management center at [facility] on [facility] and has gotten cortisone injection though feels it has not helped reduce his back pain. For now he reports his pain is stable not interested in any further surgery at this time he is considering medical marijuana to help try to get off of prescription medications . ? He continues to ambulate with a walker assist due to his continued lower extremity weakness and lumbar spine pain.? He does use a portable TENS unit on a daily basis for his lumbar spine. Current? pain medicine regime-->? Belbuca 450 mcg twice a day along?with?cyclobenzaprine 10 mg q.8 hours, clonazepam 0.5 mg daily . He reports he gets decent pain relief with the use of these medications and continue him on these for now.?? Laboratory Tests 04/17/23 07/12/23 07/12/23 10:43 09:36 09:36 Hgb 15.0 Fasting Glucose 106 H Hgb A1c (Clinic) 6.0 Cholesterol 127 LDL Cholesterol, C alc 75 07/20/23 10:28 Hgb Fasting Glucose Hgb A1c (Clinic) 6.1 H Cholesterol LDL Cholesterol, C alc PFSH Medical History COVID-19 Cervical radiculopathy Diabetic nephropathy Hypertension Diabetes mellitus Depression Type 2 diabetes mellitus without complications Coronary artery disease (CAD) excluded Failed back syndrome, lumbar Poor dental hygiene Surgical History History of colonoscopy History of tooth extraction History of cardiac catheterization History of heart artery stent History of lumbar fusion Family History Father No problems noted. 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) Vision needs: Yes (wears glasses.) Questionnaire Thrive Questionnaire Date Thrive assessed: 04/17/23 [facility] AMB Questionnaire [facility] Date [facility] - [facility] assessed: 12/28/22 Source: Developed by Drs. Fuad Buchanan, Justina Leyva, [employer] and colleagues, with an educational yolanda from [employer]. Review of Systems Const Denies headache(s) Eyes Denies loss of vision ENT Denies vertigo, Denies dizziness, Denies headache(s) and Denies sore throat Card Denies chest pain, Denies leg edema and Denies lightheadedness Resp Denies cough, Denies hemoptysis and Denies wheezing GI Denies abdominal pain, Denies melena, Denies constipation, Denies diarrhea and Denies vomiting Denies dysuria, Denies urinary frequency and Denies urinary urgency Musc Denies arthralgias, Denies joint swelling, Denies numbness and Denies tingling Neuro Denies Abnormal speech present, Denies behavioral changes, Denies vertigo, Denies dizziness, Denies headache(s), Denies loss of vision, Denies memory loss, Denies numbness and Denies tingling Psych Denies anxiety, Denies behavioral changes, Denies depression, Denies memory loss and Denies panic attacks Roger/Lymph Denies easy bleeding and Denies easy bruising Aller/Immun Denies wheezing Physical exam (Primary Care) Vital Signs: Last Vital Signs Pulse 64 07/20/23 10:12 BP 154/82 H 07/20/23 10:12 Pulse Ox 98 07/20/23 10:12 Oxygen Delivery Method Room Air 07/20/23 10:12 BMI result Body Mass Index 35.9 BMI Assessment/Plan discussion: High Tobacco/Smoking Status: Tobacco use Status Tobacco use date assessed 09/08/22 07/20/23 10:12 Patient Tobacco Use Status Former Tobacco user 07/20/23 10:12 e-Cigarette/Vaping Use Never Used 07/20/23 10:12 Thrive Assessment: Date of Thrive Assessment Date Thrive assessed 04/17/23 07/20/23 10:12 Const General: healthy appearing, no acute distress, alert and awake Nutritional Appearance: well nourished Orientation/consciousness: oriented to person, oriented to place and oriented to time HENMT Ears: TM's normal bilaterally General nose exam: Normal nasal mucous membranes and turbinates present Eyes Conjunctivae: conjunctivae normal Sclerae: sclerae normal Pupils: Equal, round and reactive pupils present Neck Neck: Yes no lymphadenopathy and Yes no JVD Thyroid: Thyroid normal Carotids: no bruits Resp Effort & Inspection: normal respiratory effort and not tachypneic Auscultation: no crackles, no rales, no rhonchi and no wheezes Cardio Rate: regular rate Rhythm: regular rhythm Heart sounds: no murmurs and normal S1 and S2 GI Palpation (GI): Soft to palpation, nontender, no hepatomegaly and no splenomegaly Auscultation: normal bowel sounds Back/Spine/Pelvis Other: CONTINUES WITH AN ANTALGIC GAIT. WALKS WITH A CANE. DOES HAVE TENS UNIT ATTACHED TO HIS LOWER BACK. Skin General skin exam: no rashes or lesions noted and dry skin Neuro General: oriented to person, oriented to place and oriented to time Cranial nerves: Yes Equal, round and reactive pupils present Speech: No Abnormal speech present Gait exam (Neuro): Normal gait present Motor exam (neuro): no tremor noted Extrem Right upper extremity: full ROM Left upper extremity: full ROM Right lower extremity: full ROM; no edema Left lower extremity: full ROM; no edema Psych Mental Status: mental status grossly normal Speech and movement: Normal speech and movement present Affect: normal affect Attitude: cooperative Thought process: Normal thought process present Results AMB Hemoglobin A1c AMB Hemoglobin A1c 6.1 % Last Edit by SIDNEY Mckeon on 07/20/23 10:29 Results Reviewed Results Reviewed: Laboratory Last Values Hgb A1c (Clinic) 6.1 % (4.0-6.0) H 07/20/23 10:28 Assessment and Plan Assessment & Plan (1) Failed back syndrome, lumbar: Code(s): M96.1 - Postlaminectomy syndrome, not elsewhere classified Plan: Continues to do fairly well with current medication Belbuca, cyclobenzaprine, clonazepam. He does continue to have breakthrough pain and weakness in his lower extremity, continues to wear TENS unit over his lower lumbar spine. TODAY DID SIGN DRUG CONTRACT AND WILLING TO GO FOR DRUG SCREEN. (2) History of lumbar fusion: Comment: Has done very well on Belbuca now on 450 mcg q12h and tramadol 50 mg has been lowered from three/day to 2/day. Since Rafa is now off all C-2 opioids he will be referred back to [facility] for further management. See workload note. Conceivably he could Belbuca can be raised further and tramadol might be able to be stopped. Code(s): Z98.1 - Arthrodesis status Plan: As above Has history of lumbar fusion secondary to a work related injury. Continues to manage his pain with the above medications with decent relief. Still does have some pain as lower back to radiates down both bilater lateral legs and some weakness in his lower extremities. Does continue to use a cane for ambulatory assistance. Orders: Orders Microalbumin, Random (w Creat) 6 Months I10 - Essential (primary) hypertension Lipid Panel 6 Months E11.29 - Type 2 diabetes mellitus with other diabetic kidney complication, R80.9 - Proteinuria, unspecified Prostate Specific Antigen Scr 6 Months E11.29 - Type 2 diabetes mellitus with other diabetic kidney complication, R80.9 - Proteinuria, unspecified, Z12.5 - Encounter for screening for malignant neoplasm of prostate AMB Hemoglobin A1c 07/20/23 E11.9 - Type 2 diabetes mellitus without complications Drug Screen Urine 07/22/23 F11.20 - Opioid dependence, uncomplicated, M96.1 - Postlaminectomy syndrome, not elsewhere classified Comprehensive [place]. Panel Fast 6 Months I10 - Essential (primary) hypertension Complete Blood Count no Diff 6 Months I10 - Essential (primary) hypertension Medications: New cane As directed 1 ea 0RF M96.1 - Postlaminectomy syndrome, not elsewhere classified Refilled clonazepam 0.5 mg PO DAILY 30 days 30 tabs 3RF F41.1 - Generalized anxiety disorder Coding Level of Care Code Est Pt Level 4 (74937) Diagnoses Failed back syndrome, lumbar M96.1 History of lumbar fusion Z98.1
== END 2023-07-20 10:52 | disposition home or self-care (01) ==
PROVIDERS: Visit Provider Physician Assistant
DX: E11.9 Type 2 diabetes mellitus without complications (principal)
CPT/HCPCS: 83036; 99214

== ENCOUNTER 2023-07-22 10:13 | Outpatient (REF) | payer MEDICARE, SELFPAY ==
[2023-07-22 11:33] LABS: Amphetamine Screen Urine Not Detected (Not Detect); Barbiturates, Urine Not Detected (Not Detect); Benzodiazepines Screen Urine Not Detected (Not Detect); Cannabinoid Screen Urine Not Detected (Not Detect); Cocaine Screen Urine Not Detected (Not Detect); Fentanyl, urine Not Detected (Not Detect); Opiate Screen Urine Not Detected (Not Detect); Phencyclidine Screen Urine Not Detected (Not Detect)
== END 2023-07-22 10:14 | disposition home or self-care (01) ==
LOC: HO.LAB 10:13
PROVIDERS: PCP Physician Assistant; Visit Provider Physician Assistant
DX: M96.1 Postlaminectomy syndrome, not elsewhere classified (principal); F11.20 Opioid dependence, uncomplicated
CPT/HCPCS: 80307

== ENCOUNTER 2023-12-20 07:28 | Outpatient (REF) | payer MEDICARE, SELFPAY ==
[2023-12-20 08:47] LABS: Hematocrit 41.4 % (42.0-52.0); Hemoglobin 13.7 g/dl (14.0-18.0); Mean Corpuscular HGB Conc 33.1 g/dl (31.0-36.0); Mean Corpuscular Hemoglobin 30.7 pg (27.0-33.0); Mean Corpuscular Volume 92.8 fL (80.0-98.0); Mean Platelet Volume 10.5 fL (9.4-12.4); Platelet Count 199 X10*3/uL (160-400); Red Blood Count 4.46 X10*6/uL (4.60-5.80); Red Cell Distribution Width 13.2 % (11.0-16.0); White Blood Count 9.2 X10*3/uL (4.8-10.8)
[2023-12-20 09:29] LABS: Creatinine Urine 165.12 mg/dL; Microalbum/Creatinine Ratio Ur 34.5 ug/mg cr (<30)
[2023-12-20 09:37] LABS: Alanine Aminotransferase 21 U/L (0-40); Albumin Level 3.8 g/dL (3.5-5.0); Alkaline Phosphatase 124 U/L (39-117); Anion Gap 9 (12-20); Aspartate Amino Transferase 19 U/L (5-37); Bilirubin Total 0.6 mg/dL (0.0-1.0); Blood Urea Nitrogen 10 mg/dL (9-16); Calcium 8.7 mg/dL (8.4-10.2); Carbon Dioxide 30 mmol/L (22-29); Chloride 105 mmol/L (96-108); Cholesterol 114 mg/dL (<200); Estimated Glomerular Filt Rate > 60; Glucose Fasting 103 mg/dL (60-99); HDL Cholesterol 27 mg/dL (>40); LDL Cholesterol Calculated 63 mg/dL (<100); Potassium 3.7 mmol/L (3.3-5.1); Sodium 140 mmol/L (135-145); Total Protein 7.1 g/dL (6.5-8.0); Triglycerides 124 mg/dL (<150)
[2023-12-20 10:09] LABS: Prostate Specific Antigen Scr 0.11 ng/mL (<0.05-4.0)
== END 2023-12-20 07:29 | disposition home or self-care (01) ==
LOC: HO.LAB 07:28
PROVIDERS: PCP Physician Assistant; Visit Provider Physician Assistant
DX: Z12.5 Encounter for screening for malignant neoplasm of prostate (principal); I10 Essential (primary) hypertension; E11.29 Type 2 diabetes mellitus with other diabetic kidney complication; R80.9 Proteinuria, unspecified
CPT/HCPCS: 36415; 80053; 80061; 82043; 82570; 84153; 85027

== ENCOUNTER 2024-01-23 09:15 | Outpatient (AMB) | payer OTHER, SELFPAY ==
[2024-01-23 09:27] VITALS: BP 156/88; PULSE 75; O2SAT 95; BMI 35.0
--- NOTE | 2024-01-23 09:27 | A.OFFVIS_ITS ---
Intake Vital Signs 01/23/24 09:27 Height 5 ft 4 in Weight 204 lb 2 oz BMI 35.0 BP 156/88 H Blood Pressure Location Lt brachial Position Sitting Pulse 75 Pulse Source Pulse Oximeter Pulse Oximetry (%) 95 Oxygen Delivery Method Room Air Intake Visit Reasons: annual wellness Inspector And Mender Required: Yes Inspector And Mender Language: Icelandic Accompanied by: Self / Same As Patient Allergies No Known Allergies [No Known Allergies*] Allergy (Verified 01/23/24 09:51) Medication List - Last Reconciled 01/23/24 by Tc Peoples PA-C amlodipine 10 mg PO DAILY aspirin 81 mg PO DAILY atorvastatin 80 mg PO DAILY betamethasone dipropionate 0.05% 1 appl topical DAILY PRN 30 days blood sugar diagnostic ([employer] Verio test strips) Testing twice a day blood-glucose meter ([employer] Verio Flex Meter) Testing twice a day buprenorphine HCl (Belbuca) 450 mcg buccal Q12H 30 days cane As directed chlorhexidine gluconate 0.12% 15 mL PO TID clonazepam 0.5 mg PO DAILY 30 days clopidogrel 75 mg PO DAILY cyclobenzaprine 10 mg PO Q8H 30 days fludrocortisone 0.1 mg PO DAILY fluoxetine 80 mg (4 x 20 mg) PO DAILY lancets ([employer] Delica Plus Lancet) Testing twice a day metformin 1,000 mg PO BID metoprolol tartrate 25 mg PO BID miscellaneous medical supply miscellaneous; TENS Unit and pads ofloxacin 0.3% 1 drp ophthalmic (eye) BID 30 days omeprazole 20 mg PO DAILY prednisolone acetate 1% 1 drp ophthalmic (eye) QID HPI annual wellness HPI Details Patient is a 73 year-old male? here today for Annual wellness Visit...? Patient has a past medical history significant for generalized anxiety disorder, coronary artery disease ,lumbar radiculopathy failed back syndrome, hypertension, type 2 diabetes. Today we discussed patient's end of life planning and [place] care. He does have a MOLST that is filled out in his appropriate. Concern--> he does report over the last 3 months having epigastric and right upper quadrant abdominal pain worse after he eats. He does have some episodes of emesis at times. He still does use omeprazole.. PLAN: Will send for ultrasound of right upper quadrant evaluate for cholelithiasis Vaccines: Up-to-date with COVID vaccine, pneumonia vaccine and shingles vaccine, Declines Td Colon cancer screening: done in 2014 - normal- needs repeat in 2024 Laboratory Tests 07/20/23 07/22/23 12/20/23 10:28 10:25 07:41 RBC 4.46 L Hgb 13.7 L Fasting Glucose 103 H Hgb A1c (Clinic) 6.1 H Triglycerides 124 Cholesterol 114 Urine Opiates Scre en Not Detected U Benzodiazepines Scrn Not Detected HPI Comments History of Present Illness Details reviewed past medical history- yes reviewed surgical / hospitalization history- yes reviewed current medications- yes reviewed family history- yes home safety throw rugs? grab bars? raised toilet seat? working smoke detectors? activities of daily living difficulty bathing or showering? difficulty dressing? difficulty using the toilet? difficulty getting in and out of bed? difficulty walking? receives help from other person's with any of the above tasks? instrumental activities of daily living uses telephone - gets to place out of walking distance- go shopping for groceries- repairs own meals- does own minor home maintenance- does own laundry- does own housework- manages own money- currently takes medication- end of life planning discussed advanced directives- yes advanced directives on file? discussed wishes expressed in advanced directives. fall risk have you had any falls with injuries in the past year? have you had 2 or more falls in the past year? fall risk assessment: [facility] Medical History COVID-19 Cervical radiculopathy Diabetic nephropathy Hypertension Diabetes mellitus Depression Type 2 diabetes mellitus without complications Coronary artery disease (CAD) excluded Failed back syndrome, lumbar Poor dental hygiene Surgical History History of colonoscopy History of tooth extraction History of cardiac catheterization History of heart artery stent History of lumbar fusion Family History Father No problems noted. 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) Vision needs: Yes (wears glasses.) Questionnaire Medicare Wellness Checkup [age] What gender do you identify with?: male During the past 4 weeks, how much have you been bothered by emotional problems such as feeling anxious, depressed, irritable, sad or downhearted, and blue?: quite a bit During the past 4 weeks, has your physical & emotional health limited your social activities with family, friends, neighbors, or groups?: moderately During the past 4 weeks, how much bodily pain have you generally had?: severe pain During the past 4 weeks, was someone available to help you if you needed & wanted help?: yes, some During the past 4 weeks, what was the hardest physical activity you could do for at least 2 minutes?: very light Can you get to places out of walking distance without help? (For eg., can you travel alone on buses, taxis or drive your car?): No Can you go shopping for groceries or clothes without someone's help?: No Can you prepare your own meals?: No Can you do your housework without help?: No Because of any health problems, do you need the help of another person with your personal care needs such as eating, bathing, dressing or getting around the house?: Yes Can you handle your own money without help?: Yes During the past 4 weeks, how would you rate your health in general?: fair During the past 4 weeks how have things been going for you?: good & bad parts about equal Are you having difficulties driving your car?: no Do you always fasten your seat belt when you are in a car?: yes, usually During past 4 weeks, have you been bothered by the following: never: Problems using the telephone?, sometimes: Falling or dizzy when standing up and Teeth or denture problems?, often: Trouble eating well? and Tiredness or fatigue? and always: Sexual problems? Have you fallen 2 or more times in the past year?: No Are you afraid of falling?: Yes Are you a smoker?: no During the past 4 weeks, how many drinks of wine, beer, or other alcoholic beverages did you have?: no alcohol at all Do you exercise for about 20 minutes 3 or more times a week?: yes, all the time Have you been given information to help with the following?: yes: Hazards in your house that might hurt you? and no: Keeping track of your medications? How often do you have trouble taking medicines the way you have been told to take them?: I always take medicine as prescribed How confident are you that you can control & manage most of your health problems?: very confident What is your race?: White Mini Mental State Exam (MMSE) Orientation What is the (year) (season) (date) (day) (month)?: year, season and date Where are we (state) (county) (town or city) (hospital) (floor)?: county Score Score: 4 Activity of Daily Living Bathing - sponge bath, tub bath or shower: receives no assistance (gets in/out by self, if usual bathing means Dressing - getting clothes from closets & drawers, including inner/outer garments & fasteners.: gets clothes & gets dressed without help, except for help tying shoes Toileting - going to the 'toilet room' for urine/bowel elimination & cleaning self/arranging clothes: goes to toilet room, cleans self, arranges clothes without help Transfer: moves in & out of bed or chair with help Continence: controls urination/bowel movements completely by self Feeding: feeds self without help Total Score: 0 Information obtained from: patient Using telephone: independent Traveling: independent Shopping: needs assistance Preparing meals: needs assistance Housework: needs assistance Taking medicine: independent Managing money: needs assistance PHQ-9 Over the last 2 weeks, how often have you been bothered by any of the following problems? 1. Little interest or pleasure in doing things: nearly every day 2. Feeling down, depressed, or hopeless: more than half the days 3. Trouble falling or staying asleep, or sleeping too much: more than half the days 4. Feeling tired or having little energy: nearly every day 5. Poor appetite or overeating: more than half the days 6. Feeling bad about yourself - or that you are a failure or have let yourself or your family down: nearly every day 7. Trouble concentrating on things, such as reading the newspaper or watching television: more than half the days 8. Moving or speaking so slowly that other people could have noticed. Or the opposite - being so fidgety or restless that you have been moving around a lot more than usual: not at all 9. Thoughts that you would be better off or of hurting yourself in some way: not at all Total score: 17 Depression Screening Interpretation: Positive Depression Screening Follow-up: Existing condition and Declines treatment Depression Screening Done: Yes 38785 - PHQ-9 Billing: Yes Source: Developed by Drs. Fuad Buchanan, Justina Leyva, [employer] and colleagues, with an educational yolanda from [employer]. Thrive Questionnaire Date Thrive assessed: 01/23/24 I am a: Patient What is your living situation today?: I have a steady place to live Within the past 12 months, did the food you bought not last and you didn't have the money to get more?: Never true Within the past 12 months, did you worry whether your food would run out before you got money to buy more?: Never true Do you have trouble paying for medicines?: No Do you have trouble getting transportation to medical appointments?: No Do you have trouble paying your heating and electricity bill?: No Do you have trouble taking care of your child, family member or friend?: No Do you have trouble with day-to-day activities such as bathing, preparing meals, shopping, managing finances, etc.?: No Are you currently unemployed and looking for a job?: No Are you interested in more education?: No Please select the resources that you would like help with: None THRIVE Score: 0 Physical Exam Vital Signs: Last Vital Signs Pulse 75 01/23/24 09:27 BP 156/88 H 01/23/24 09:27 Pulse Ox 95 01/23/24 09:27 Oxygen Delivery Method Room Air 01/23/24 09:27 BMI result Body Mass Index 35.0 HEENT Other: hearing screening whisper test- pass Eyes Other: vision screening- 20/20 OS OD OU Other: urinary incontinence? no Neuro Other: balance Romberg- normal tandem walk test- able walk-in turned test- able with some difficulty due to back pain rise from sit to stand- within 3 seconds Assessment & Plan Assessment & Plan (1) Encounter for subsequent annual wellness visit (AWV) in Medicare patient: Code(s): Z00.00 - Encounter for general adult medical examination without abnormal findings Plan: As per [facility] Does get EKG with his blood bank specialist (dr. Vang) (2) RUQ abdominal pain: Code(s): R10.11 - Right upper quadrant pain Plan: As per HPI patient has been having right upper quadrant and epigastric pain worse after he eats. Differential diagnosis includes GERD versus cholelithiasis versus cholecystitis. Will send for right upper quadrant abdominal ultrasound evaluate for cholelithiasis. Plan As per [facility] Orders: Orders Buprenorphine Scr 01/23/24 F11.20 - Opioid dependence, uncomplicated US abdomen limited 01/23/24 R10.11 - Right upper quadrant pain AMB 14 Panel Urine Drug Screen 01/23/24 F11.20 - Opioid dependence, uncomplicated, Z51.81 - Encounter for therapeutic drug level monitoring Medications: New clonazepam 1 mg PO DAILY 30 tabs 3RF 30 days F41.1 - Generalized anxiety disorder Discontinued clonazepam Discontinued Reason: Doctor's Order 0.5 mg PO DAILY 30 days 30 tabs 3RF F41.1 - Generalized anxiety disorder Quality Reporting (2019) Depression/Bipolar (159/160/161/177) PHQ-9: Total score: 17 Coding Level of Care Code Medicare Subsequent (G0439) Est Pt Level 3 (24359) Diagnoses Encounter for subsequent annual wellness visit (AWV) in Medicare patient Z00.00 RUQ abdominal pain R10.11 CPT Codes Advance Care Planning - Advance Care Planning discussion: On file, no changes ([id number]) Advance Care Planning - Time spent: 1-15 minutes, on File ([id number]) Advance Care Planning Advance Care Planning discussion: On file, no changes Date of discussion: 01/23/24 Forms completed: MOLST Time spent: 1-15 minutes, on File Actual minutes spent: 4
== END 2024-01-23 10:20 | disposition home or self-care (01) ==
PROVIDERS: PCP Physician Assistant; Visit Provider Physician Assistant
DX: Z00.00 Encounter for general adult medical examination without abnormal findings (principal); R10.11 Right upper quadrant pain
CPT/HCPCS: 1123F; 99212; G0439

== ENCOUNTER 2024-02-22 07:20 | Outpatient (REF) | payer MEDICARE, SELFPAY ==
--- NOTE | ~2024-02-22 | US_ITS ---
EXAMINATION: US ABDOMEN LIMITED CLINICAL INFORMATION: Right upper quadrant pain. COMPARISON: CT abdomen and pelvis 08/11/2020. TECHNIQUE: Real-time imaging of the right upper quadrant abdominal viscera. Limited visualization due to bowel gas. FINDINGS: PANCREAS: Limited visualization of pancreatic tail and head. Imaged portion of pancreatic body is unremarkable. LIVER: Increased hepatic parenchymal heterogeneity and echogenicity could be associated with hepatocellular disease/hepatic steatosis and substantially limits visualization. Correlation with liver function tests and clinical exam recommended to determine further management. GALLBLADDER: No gallstones. No gallbladder wall thickening. COMMON BILE DUCT: Normal in caliber measuring 0.44 cm in diameter. RIGHT KIDNEY: No hydronephrosis. No renal calculi. Limited visualization. The kidney measures 10.6 cm in maximum dimension. FREE FLUID: None. US/US abdomen limited IMPRESSION: Increased hepatic parenchymal heterogeneity and echogenicity could be associated with hepatocellular disease/hepatic steatosis and substantially limits visualization. Correlation with liver function tests and clinical exam recommended to determine further management.
== END 2024-02-22 07:21 | disposition home or self-care (01) ==
LOC: HO.US 07:20
PROVIDERS: PCP Physician Assistant; Visit Provider Physician Assistant
DX: R10.11 Right upper quadrant pain (principal)
CPT/HCPCS: 76705

== ENCOUNTER 2024-05-29 08:38 | Outpatient (AMB) | payer MEDICARE, SELFPAY ==
--- NOTE | 2024-05-29 09:04 | MHC.PC.OV ---
Vital Signs 05/29/24 09:06 Height 5 ft 4 in Weight 197 lb 4 oz BMI 33.9 BP 120/70 Blood Pressure Location Lt brachial Position Sitting Pulse 70 Pulse Source Pulse Oximeter Pulse Oximetry (%) 98 Oxygen Delivery Method Room Air Intake Visit Reasons: Workers comp visit( back) Intake Note: Patient is here to follow up on workers comp Back. Manager Marketing Communication Required: No Band Splitter: Not Required per policy Accompanied by: Self / Same As Patient Allergies No Known Allergies [No Known Allergies*] Allergy (Verified 05/29/24 09:13) Medication List - Last Reconciled 05/29/24 by Tc Peoples PA-C amlodipine 10 mg PO DAILY aspirin 81 mg PO DAILY atorvastatin 80 mg PO DAILY betamethasone dipropionate 0.05% 1 appl topical DAILY PRN 30 days blood sugar diagnostic ([employer] Verio test strips) Testing twice a day blood-glucose meter ([employer] Verio Flex Meter) Testing twice a day buprenorphine HCl (Belbuca) 450 mcg buccal Q12H 30 days cane As directed chlorhexidine gluconate 0.12% 15 mL PO TID clonazepam 1 mg PO DAILY 30 days clopidogrel 75 mg PO DAILY cyclobenzaprine 10 mg PO Q8H 30 days fludrocortisone 0.1 mg PO DAILY fluoxetine 80 mg (4 x 20 mg) PO DAILY lancets (C[employer] Delica Plus Lancet) Testing twice a day metformin 1,000 mg PO BID metoprolol tartrate 25 mg PO BID miscellaneous medical supply miscellaneous; TENS Unit and pads ofloxacin 0.3% 1 drp ophthalmic (eye) BID 30 days omeprazole 20 mg PO DAILY prednisolone acetate 1% 1 drp ophthalmic (eye) QID Tobacco use date assessed: 05/29/24 Fall risk assessment: No Falls in past year Last assessed Fall Risk: 05/29/24 Dental Screening Dental Screen Date: 05/29/24 Did you have a dental visit in the last 12 months?: Yes Did you have a dental problem in the last 6 months where you did not have access to dental care?: No Was dental information given to patient?: Patient has dentist HPI Workers comp visit( back) HPI Details Patient is a 74-year-old male here today fora [facility] visit.?..? 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 He is now seening neurosurgeon and Dr. Get montaño at [facility].? He is also seeing pain management center at [facility] on [facility] and has gotten cortisone injection though feels it has not helped reduce his back pain. For now he reports his pain is stable not interested in any further surgery at this time he is considering medical marijuana to help try to get off of prescription medications . ? He continues to ambulate with a walker assist due to his continued lower extremity weakness and lumbar spine pain.? He does use a portable TENS unit on a daily basis for his lumbar spine. HE HAS BEEN HAVING SOME ISSUE GETTING HIS MEDS ON TIME TO THE PHARMACY IS THERE WAS A 10 DAY DELAYED GETTING HIS BELBUCA AND CLONAZEPAM. Current? pain medicine regime-->? Belbuca 450 mcg twice a day along?with? clonazepam 1 mg daily . He reports he gets decent pain relief with the use of these medications and continue him on these for now [facility] Medical History COVID-19 Cervical radiculopathy Diabetic nephropathy Hypertension Diabetes mellitus Depression Type 2 diabetes mellitus without complications Coronary artery disease (CAD) excluded Failed back syndrome, lumbar Poor dental hygiene Surgical History History of colonoscopy History of tooth extraction History of cardiac catheterization History of heart artery stent History of lumbar fusion Family History Father No problems noted. 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) Vision needs: Yes (wears glasses.) Questionnaire Thrive Questionnaire Date Thrive assessed: 01/23/24 Are you currently unemployed and looking for a job?: No AUDIT C Alcohol Use Questionnaire (AUDIT-C) 1. How often do you have a drink containing alcohol?: Never Total Score: 0 KAISER-7 AMB Questionnaire KAISER-7 Date KAISER - 7 assessed: 05/29/24 Feeling nervous, anxious, or on edge: 0 = Not at all Not being able to stop or control worryin = Not at all Worrying too much about different things: 0 = Not at all Trouble relaxin = Not at all Being so restless that it is hard to sit still: 0 = Not at all Becoming easily annoyed or irritable: 0 = Not at all Feeling afraid as if something awful might happen: 0 = Not at all Total KAISER-7 score (0-4 normal; 5-9 mild; 10-14 moderate; 15-21 severe): 0 Source: Developed by Drs. Fuad Buchanan, Justina Leyva, [employer] and colleagues, with an educational yolanda from [employer]. Review of Systems Const Denies headache(s) Eyes Denies loss of vision ENT Denies vertigo, Denies dizziness, Denies headache(s) and Denies sore throat Card Denies chest pain, Denies leg edema and Denies lightheadedness Resp Denies cough, Denies hemoptysis and Denies wheezing GI Denies abdominal pain, Denies melena, Denies constipation, Denies diarrhea and Denies vomiting Denies dysuria, Denies urinary frequency and Denies urinary urgency Musc Denies arthralgias, Denies joint swelling, Denies numbness and Denies tingling Neuro Denies Abnormal speech present, Denies behavioral changes, Denies vertigo, Denies dizziness, Denies headache(s), Denies loss of vision, Denies memory loss, Denies numbness and Denies tingling Psych Denies anxiety, Denies behavioral changes, Denies depression, Denies memory loss and Denies panic attacks Roger/Lymph Denies easy bleeding and Denies easy bruising Aller/Immun Denies wheezing Physical exam (Primary Care) Vital Signs: Last Vital Signs Pulse 70 05/29/24 09:06 BP 120/70 05/29/24 09:06 Pulse Ox 98 05/29/24 09:06 Oxygen Delivery Method Room Air 05/29/24 09:06 BMI result Body Mass Index 33.9 Tobacco/Smoking Status: Tobacco use Status Tobacco use date assessed 05/29/24 05/29/24 09:12 Patient Tobacco Use Status Former Tobacco user 05/29/24 09:05 e-Cigarette/Vaping Use Never Used 05/29/24 09:05 Thrive Assessment: Date of Thrive Assessment Date Thrive assessed 01/23/24 05/29/24 09:05 Const General: healthy appearing, no acute distress, alert and awake Nutritional Appearance: well nourished Orientation/consciousness: oriented to person, oriented to place and oriented to time HENMT Ears: TM's normal bilaterally General nose exam: Normal nasal mucous membranes and turbinates present Eyes Conjunctivae: conjunctivae normal Sclerae: sclerae normal Pupils: Equal, round and reactive pupils present Neck Neck: Yes no lymphadenopathy and Yes no JVD Thyroid: Thyroid normal Carotids: no bruits Resp Effort & Inspection: normal respiratory effort and not tachypneic Auscultation: no crackles, no rales, no rhonchi and no wheezes Cardio Rate: regular rate Rhythm: regular rhythm Heart sounds: no murmurs and normal S1 and S2 GI Palpation (GI): Soft to palpation, nontender, no hepatomegaly and no splenomegaly Auscultation: normal bowel sounds Back/Spine/Pelvis Other: Ambulating with a cane for assistance, has an antalgic gait. Skin General skin exam: no rashes or lesions noted and dry skin Neuro General: oriented to person, oriented to place and oriented to time Cranial nerves: Yes Equal, round and reactive pupils present Speech: No Abnormal speech present Gait exam (Neuro): Normal gait present Motor exam (neuro): no tremor noted Extrem Right upper extremity: full ROM Left upper extremity: full ROM Right lower extremity: full ROM; no edema Left lower extremity: full ROM; no edema Psych Mental Status: mental status grossly normal Speech and movement: Normal speech and movement present Affect: normal affect Attitude: cooperative Thought process: Normal thought process present Assessment and Plan Assessment & Plan (1) Failed back syndrome, lumbar: Code(s): M96.1 - Postlaminectomy syndrome, not elsewhere classified Plan: Continues to do fairly well with current medication Belbuca, cyclobenzaprine, clonazepam. He does continue to have breakthrough pain and weakness in his lower extremity, continues to wear TENS unit over his lower lumbar spine. (2) History of lumbar fusion: Comment: Has done very well on Belbuca now on 450 mcg q12h and tramadol 50 mg has been lowered from three/day to 2/day. Since Rafa is now off all C-2 opioids he will be referred back to [facility] for further management. See workload note. Conceivably he could Belbuca can be raised further and tramadol might be able to be stopped. Code(s): Z98.1 - Arthrodesis status Plan: As above Has history of lumbar fusion secondary to a work related injury. Continues to manage his pain with the above medications with decent relief. Still does have some pain as lower back to radiates down both bilater lateral legs and some weakness in his lower extremities. Does continue to use a cane for ambulatory assistance. Medications: New simethicone (Gas-X Extra Strength) 125 mg PO TID PRN 90 tabs 0RF abdominal distention 30 days Refilled clonazepam 1 mg PO DAILY 30 tabs 3RF 30 days F41.1 - Generalized anxiety disorder buprenorphine HCl (Belbuca) 450 mcg buccal Q12H 60 ea 3RF 30 days 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, lumbar region cyclobenzaprine 10 mg PO Q8H 90 tabs 6RF 30 days M54.12 - Radiculopathy, cervical region Coding Level of Care Code Est Pt Level 4 (21301) Diagnoses Failed back syndrome, lumbar M96.1 History of lumbar fusion Z98.1
[2024-05-29 09:06] VITALS: BP 120/70; PULSE 70; O2SAT 98; BMI 33.9
== END 2024-05-29 09:27 | disposition home or self-care (01) ==
PROVIDERS: PCP Physician Assistant; Visit Provider Physician Assistant
DX: M96.1 Postlaminectomy syndrome, not elsewhere classified (principal); Z98.1 Arthrodesis status

== ENCOUNTER → 2024-05-29 08:38 | Outpatient (BNVA) | payer MEDICARE, SELFPAY | PROVIDERS: PCP Physician Assistant; Visit Provider Physician Assistant | DX: M96.1 Postlaminectomy syndrome, not elsewhere classified (principal); Z98.1 Arthrodesis status | CPT/HCPCS: 99212 ==

== ENCOUNTER 2024-07-25 09:18 | Outpatient (AMB) | payer MEDICARE, SELFPAY ==
[2024-07-25 09:36] VITALS: BP 148/90; PULSE 72; O2SAT 98; BMI 33.5
--- NOTE | 2024-07-25 09:36 | A.OFFPC_ITS ---
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 Required: No Accompanied by: Self / Same As Patient Allergies No Known Allergies [No Known Allergies*] Allergy (Verified 07/25/24 09:53) Medication List - Last Reconciled 07/25/24 by Tc Peoples PA-C amlodipine 10 mg PO DAILY aspirin 81 mg PO DAILY atorvastatin 80 mg PO DAILY betamethasone dipropionate 0.05% 1 appl topical DAILY PRN 30 days blood sugar diagnostic ([employer] Verio test strips) Testing twice a day blood-glucose meter ([employer] Verio Flex Meter) Testing twice a day buprenorphine HCl (Belbuca) 450 mcg buccal Q12H 30 days cane As directed chlorhexidine gluconate 0.12% 15 mL PO TID clonazepam 1 mg PO DAILY 30 days clopidogrel 75 mg PO DAILY cyclobenzaprine 10 mg PO Q8H 30 days fludrocortisone 0.1 mg PO DAILY fluoxetine 80 mg (4 x 20 mg) PO DAILY lancets ([employer] Delica Plus Lancet) Testing twice a day metformin 1,000 mg PO BID metoprolol tartrate 25 mg PO BID miscellaneous medical supply miscellaneous; TENS Unit and pads ofloxacin 0.3% 1 drp ophthalmic (eye) BID 30 days omeprazole 20 mg PO DAILY prednisolone acetate 1% 1 drp ophthalmic (eye) QID simethicone (Gas-X Extra Strength) 125 mg PO TID PRN 30 days Tobacco use date assessed: 05/29/24 Fall risk assessment: No Falls in past year Last assessed Fall Risk: 07/25/24 Dental Screening Dental Screen Date: 05/29/24 HPI Follow Up HPI Details Patient is a 74 year-old male? here today for a medical follow-up visit..? Patient has a past medical history significant for generalized anxiety disorder, coronary artery disease ,lumbar radiculopathy failed back syndrome, hypertension, type 2 diabetes. Concern--> reports for quite awhile now having mid abdominal pain just before eats and a little after he eats. He denies any constipation or diarrhea or vomiting. He does use omeprazole 20 mg daily. Will send for ultrasound to evaluate for his chronic abdominal pain. Consider GI referral .. HTN:? blood pressure slightly elevated today in office. He reports having elevated blood pressure readings in the mornings 140s 150s systolic. Will add on lisinopril for better blood pressure control and renal protection.? Fortunately patient asymptomatic without any headaches, dizziness, chest discomfort palpitations..?? .. DMII: REport blood sugar at home have been stable ( 125)- most recent A1c has been stable.? He is due for fasting labs and advised to get these done IAN .. Coronary artery disease:? Continues on high dose statin and dualanti-platelet therapy.? Will continue to follow lipid panel goal LDL to be below 100 optimally below 70. Advise when he follows up with his city detective to ask them about reducing to mono antiplatelet therapy. PFSH Medical History COVID-19 Cervical radiculopathy Diabetic nephropathy Hypertension Diabetes mellitus Depression Type 2 diabetes mellitus without complications Coronary artery disease (CAD) excluded Failed back syndrome, lumbar Poor dental hygiene Surgical History History of colonoscopy History of tooth extraction History of cardiac catheterization History of heart artery stent History of lumbar fusion Family History Father No problems noted. 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) Vision needs: Yes (wears glasses.) Questionnaire Thrive Questionnaire Date Thrive assessed: 01/23/24 KAISER-7 AMB Questionnaire KAISER-7 Date KAISER - 7 assessed: 05/29/24 Source: Developed by Drs. Fuad Buchanan, Justina Leyva, [employer] and colleagues, with an educational yolanda from [employer]. Review of Systems Const Denies headache(s) Eyes Denies loss of vision ENT Denies vertigo, Denies dizziness, Denies headache(s) and Denies sore throat Card Denies chest pain, Denies leg edema and Denies lightheadedness Resp Denies cough, Denies hemoptysis and Denies wheezing GI Denies abdominal pain, Denies melena, Denies constipation, Denies diarrhea and Denies vomiting Denies dysuria, Denies urinary frequency and Denies urinary urgency Musc Denies arthralgias, Denies joint swelling, Denies numbness and Denies tingling Neuro Denies Abnormal speech present, Denies behavioral changes, Denies vertigo, Denies dizziness, Denies headache(s), Denies loss of vision, Denies memory loss, Denies numbness and Denies tingling Psych Denies anxiety, Denies behavioral changes, Denies depression, Denies memory loss and Denies panic attacks Roger/Lymph Denies easy bleeding and Denies easy bruising Aller/Immun Denies wheezing Physical exam (Primary Care) Vital Signs: Last Vital Signs Pulse 72 07/25/24 09:36 BP 148/90 H 07/25/24 09:36 Pulse Ox 98 07/25/24 09:36 Oxygen Delivery Method Room Air 07/25/24 09:36 BMI result Body Mass Index 33.5 Tobacco/Smoking Status: Tobacco use Status Tobacco use date assessed 05/29/24 07/25/24 09:38 Patient Tobacco Use Status Former Tobacco user 07/25/24 09:38 e-Cigarette/Vaping Use Never Used 07/25/24 09:38 Thrive Assessment: Date of Thrive Assessment Date Thrive assessed 01/23/24 07/25/24 09:38 Const General: healthy appearing, no acute distress, alert and awake Nutritional Appearance: well nourished Orientation/consciousness: oriented to person, oriented to place and oriented to time HENMT Ears: TM's normal bilaterally General nose exam: Normal nasal mucous membranes and turbinates present Eyes Conjunctivae: conjunctivae normal Sclerae: sclerae normal Pupils: Equal, round and reactive pupils present Neck Neck: Yes no lymphadenopathy and Yes no JVD Thyroid: Thyroid normal Carotids: no bruits Resp Effort & Inspection: normal respiratory effort and not tachypneic Auscultation: no crackles, no rales, no rhonchi and no wheezes Cardio Rate: regular rate Rhythm: regular rhythm Heart sounds: no murmurs and normal S1 and S2 GI Palpation (GI): Soft to palpation, nontender, no hepatomegaly and no splenomegaly Auscultation: normal bowel sounds Skin General skin exam: no rashes or lesions noted and dry skin Neuro General: oriented to person, oriented to place and oriented to time Cranial nerves: Yes Equal, round and reactive pupils present Speech: No Abnormal speech present Gait exam (Neuro): Normal gait present Motor exam (neuro): no tremor noted Extrem Right upper extremity: full ROM Left upper extremity: full ROM Right lower extremity: full ROM; no edema Left lower extremity: full ROM; no edema Psych Mental Status: mental status grossly normal Speech and movement: Normal speech and movement present Affect: normal affect Attitude: cooperative Thought process: Normal thought process present Office Procedures Flu Questionnaire Does the patient have a severe egg allergy?: No Results AMB Hemoglobin A1c AMB Hemoglobin A1c 6.0 % Last Edit by SIDNEY Mckeon on 07/25/24 09:57 Immunizations Fluarix Triv [id number] (PF) 45 mcg (15 mcg x 3)/0.5 mL IM syringe Performing Provider: Tc Peoples PA-C [facility] Documented (not given) by: SIDNEY Mckeon on 07/25/24 09:51 Reason Not Given: Patient Refused Results Reviewed Results Reviewed: Laboratory Last Values Hgb A1c (Clinic) 6.0 % (4.0-6.0) 07/25/24 09:57 Coding Level of Care Code Est Pt Level 4 (93285) Diagnoses Type 2 diabetes mellitus with microalbuminuria, without long-term current use of insulin E11.29; R80.9 Diabetes mellitus complication detail: with microalbuminuria Diabetes mellitus complication status: with kidney complications Diabetes mellitus residential insulin use: without food and beverage server use Diabetes mellitus type: type 2 Chronic abdominal pain R10.9; G89.29 Gastroesophageal reflux disease without esophagitis K21.9 Esophagitis presence: without esophagitis Coronary artery disease (CAD) excluded Z03.89 Assessment & Plan Assessment & Plan (1) Diabetes mellitus: Code(s): E11.9 - Type 2 diabetes mellitus without complications Category: Medical Qualifiers: Diabetes mellitus complication detail: with microalbuminuria Diabetes mellitus complication status: with kidney complications Diabetes mellitus residential insulin use: without residential use Diabetes mellitus type: type 2 Qualified Code(s): E11.29 - Type 2 diabetes mellitus with other diabetic kidney complication; R80.9 - Proteinuria, unspecified Plan: Patient's type 2 diabetes well controlled with current dose of metformin 1000 b.i.d.. Will continue to follow A1c. Goal A1c to remain below 7.0 (2) Chronic abdominal pain: Code(s): R10.9 - Unspecified abdominal pain; G89.29 - Other chronic pain Category: Medical Plan: As per HPI patient has chronic abdominal pain mostly located in his mid abdomen. Does have a history of GERD and on dual antiplatelet therapy. Will send for ultrasound evaluate his liver stomach. Will consider GI referral for an endosco py. (3) GERD (gastroesophageal reflux disease): Code(s): K21.9 - Gastro-esophageal reflux disease without esophagitis Category: Medical Qualifiers: Esophagitis presence: without esophagitis Qualified Code(s): K21.9 - Gastro-esophageal reflux disease without esophagitis Plan: Due to patient's preprandial abdominal pain will increase his dose of omeprazole to 40 mg daily. (4) Coronary artery disease (CAD) excluded: Code(s): Z03.89 - Encounter for observation for other suspected diseases and conditions ruled out Category: Medical Plan: Patient continues to follow city detective. Does have coronary artery stents. Continues on high dose statin therapy and dual antiplatelet therapy. Goal LDL is to remain below 70 Orders: Orders US abdomen complete 07/25/24 G89.29 - Other chronic pain, R10.9 - Unspecified abdominal pain Complete Blood Count no Diff 07/25/24 E11.29 - Type 2 diabetes mellitus with other diabetic kidney complication, R80.9 - Proteinuria, unspecified Influenza [id number] Immunization 07/25/24 Z23 - Encounter for immunization AMB Hemoglobin A1c 07/25/24 E11.29 - Type 2 diabetes mellitus with other diabetic kidney complication, R80.9 - Proteinuria, unspecified Microalbumin, Random (w Creat) 07/25/24 I10 - Essential (primary) hypertension Comprehensive [place]. Panel Fast 07/25/24 E11.29 - Type 2 diabetes mellitus with other diabetic kidney complication, R80.9 - Proteinuria, unspecified Lipid Panel 07/25/24 Z03.89 - Encounter for observation for other suspected diseases and conditions ruled out Medications: New lisinopril 5 mg PO DAILY 90 tabs 1RF E11.29 - Type 2 diabetes mellitus with other diabetic kidney complication, R80.9 - Proteinuria, unspecified omeprazole 40 mg PO DAILY 90 caps 1RF 90 days K21.9 - Gastro-esophageal reflux disease without esophagitis Changed From aspirin 81 mg PO DAILY Z03.89 - Encounter for observation for other suspected diseases and conditions ruled out To aspirin 81 mg PO DAILY 90 tabs 1RF 90 days Z03.89 - Encounter for observation for other suspected diseases and conditions ruled out Discontinued omeprazole Discontinued Reason: Doctor's Order 20 mg PO DAILY 90 caps 2RF
== END 2024-07-25 10:11 | disposition home or self-care (01) ==
PROVIDERS: PCP Physician Assistant; Visit Provider Physician Assistant
DX: E11.29 Type 2 diabetes mellitus with other diabetic kidney complication (principal); R80.9 Proteinuria, unspecified; R10.9 Unspecified abdominal pain; G89.29 Other chronic pain; K21.9 Gastro-esophageal reflux disease without esophagitis; Z03.89 Encounter for observation for other suspected diseases and conditions ruled out

== ENCOUNTER 2024-07-25 09:18 | Outpatient (REF) | payer MEDICARE, SELFPAY ==
[2024-07-25 12:05] LABS: Hematocrit 42.9 % (42.0-52.0); Hemoglobin 14.3 g/dl (14.0-18.0); Mean Corpuscular HGB Conc 33.3 g/dl (31.0-36.0); Mean Corpuscular Hemoglobin 30.8 pg (27.0-33.0); Mean Corpuscular Volume 92.3 fL (80.0-98.0); Mean Platelet Volume 10.6 fL (9.4-12.4); Platelet Count 221 X10*3/uL (160-400); Red Blood Count 4.65 X10*6/uL (4.60-5.80); Red Cell Distribution Width 13.5 % (11.0-16.0); White Blood Count 5.8 X10*3/uL (4.8-10.8)
[2024-07-25 12:43] LABS: Alanine Aminotransferase 27 U/L (0-40); Albumin Level 3.9 g/dL (3.5-5.0); Alkaline Phosphatase 134 U/L (39-117); Anion Gap 11 (12-20); Aspartate Amino Transferase 30 U/L (5-37); Bilirubin Total 0.4 mg/dL (0.0-1.0); Blood Urea Nitrogen 12 mg/dL (9-16); Calcium 9.5 mg/dL (8.4-10.2); Carbon Dioxide 28 mmol/L (22-29); Chloride 108 mmol/L (96-108); Cholesterol 105 mg/dL (<200); Estimated Glomerular Filt Rate > 60; Glucose Fasting 105 mg/dL (60-99); HDL Cholesterol 30 mg/dL (>40); LDL Cholesterol Calculated 62 mg/dL (<100); Potassium 4.1 mmol/L (3.3-5.1); Sodium 143 mmol/L (135-145); Total Protein 7.1 g/dL (6.5-8.0); Triglycerides 68 mg/dL (<150)
[2024-07-25 13:15] LABS: Creatinine Urine 113.22 mg/dL; Microalbum/Creatinine Ratio Ur 74.1 ug/mg cr (<30)
== END 2024-07-25 09:19 | disposition home or self-care (01) ==
LOC: HO.LAB 09:18
PROVIDERS: PCP Physician Assistant; Visit Provider Physician Assistant
DX: E11.29 Type 2 diabetes mellitus with other diabetic kidney complication (principal); R80.9 Proteinuria, unspecified; G89.29 Other chronic pain; R10.9 Unspecified abdominal pain; K21.9 Gastro-esophageal reflux disease without esophagitis; I10 Essential (primary) hypertension; Z03.89 Encounter for observation for other suspected diseases and conditions ruled out; Z28.21 Immunization not carried out because of patient refusal
CPT/HCPCS: 36415; 80053; 80061; 82043; 82570; 83036; 85027; 90471; 99212

== ENCOUNTER 2024-08-14 12:34 | Outpatient (AMB) | payer MEDICARE, SELFPAY ==
[2024-08-14 12:49] VITALS: BP 140/70; PULSE 82; O2SAT 97; BMI 33.3
--- NOTE | 2024-08-14 12:49 | MHC.PC.OV ---
Vital Signs 08/14/24 12:49 Height 5 ft 4 in Weight 194 lb 4 oz BMI 33.3 BP 140/70 H Blood Pressure Location Lt brachial Position Sitting Pulse 82 Pulse Source Pulse Oximeter Pulse Oximetry (%) 97 Oxygen Delivery Method Room Air Intake Visit Reasons: MRI request Allergies No Known Allergies [No Known Allergies*] Allergy (Verified 07/25/24 09:53) Medication List - Last Reconciled 08/14/24 by Tc Peoples PA-C amlodipine 10 mg PO DAILY aspirin 81 mg PO DAILY 90 days atorvastatin 80 mg PO DAILY betamethasone dipropionate 0.05% 1 appl topical DAILY PRN 30 days blood sugar diagnostic ([employer] Verio test strips) Testing twice a day blood-glucose meter ([employer] Verio Flex Meter) Testing twice a day buprenorphine HCl (Belbuca) 450 mcg buccal Q12H 30 days cane As directed chlorhexidine gluconate 0.12% 15 mL PO TID clonazepam 1 mg PO DAILY 30 days clopidogrel 75 mg PO DAILY cyclobenzaprine 10 mg PO Q8H 30 days fludrocortisone 0.1 mg PO DAILY fluoxetine 80 mg (4 x 20 mg) PO DAILY lancets ([employer] Delica Plus Lancet) Testing twice a day lisinopril 5 mg PO DAILY metformin 1,000 mg PO BID metoprolol tartrate 25 mg PO BID miscellaneous medical supply miscellaneous; TENS Unit and pads ofloxacin 0.3% 1 drp ophthalmic (eye) BID 30 days omeprazole 40 mg PO DAILY 90 days prednisolone acetate 1% 1 drp ophthalmic (eye) QID simethicone (Gas-X Extra Strength) 125 mg PO TID PRN 30 days Tobacco use date assessed: 05/29/24 Dental Screening Dental Screen Date: 05/29/24 HPI MRI request HPI Details The patient is a 74-year-old male presenting with concerns of upper abdominal pain and weight loss. The abdominal pain has been persistent for nearly three months and is described as originating in the upper abdominal region. Despite taking omeprazole, the patient reports no relief from the symptoms, which include a notable amount of noise emanating from the stomach. Although there is no accompanying constipation or diarrhea, there is a general reduction in appetite and food intake. Over the past several months, there has been a gradual weight loss from 205 pounds last year to 194 pounds currently, without significant effort to lose weight. There are no reports of dark stools or gastrointestinal bleeding. The patient denies any recent dietary changes that could account for these symptoms. Previously performed FIT tests for colorectal cancer screening returned negative results. [facility] Medical History COVID-19 Cervical radiculopathy Diabetic nephropathy Hypertension Diabetes mellitus Depression Type 2 diabetes mellitus without complications Coronary artery disease (CAD) excluded Failed back syndrome, lumbar Poor dental hygiene Surgical History History of colonoscopy History of tooth extraction History of cardiac catheterization History of heart artery stent History of lumbar fusion Family History Father No problems noted. 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 Fuad Buchanan, Justina Leyva, [employer] and colleagues, with an educational yolanda from [employer] ([place]). Review of Systems Const Denies headache(s) Eyes Denies loss of vision ENT Denies vertigo, Denies dizziness, Denies headache(s) and Denies sore throat Card Denies chest pain, Denies leg edema and Denies lightheadedness Resp Denies cough, Denies hemoptysis and Denies wheezing GI Reports abdominal pain, Denies melena, Reports bloating, Denies constipation, Reports GI cramping, Reports excessive flatus, Denies diarrhea and Denies vomiting Denies dysuria, Denies urinary frequency and Denies urinary urgency Musc Denies arthralgias, Denies joint swelling, Denies numbness and Denies tingling Neuro Denies Abnormal speech present, Denies behavioral changes, Denies vertigo, Denies dizziness, Denies headache(s), Denies loss of vision, Denies memory loss, Denies numbness and Denies tingling Psych Denies anxiety, Denies behavioral changes, Denies depression, Denies memory loss and Denies panic attacks Roger/Lymph Denies easy bleeding and Denies easy bruising Aller/Immun Denies wheezing Physical exam (Primary Care) Vital Signs: Last Vital Signs Pulse 82 08/14/24 12:49 BP 140/70 H 08/14/24 12:49 Pulse Ox 97 08/14/24 12:49 Oxygen Delivery Method Room Air 08/14/24 12:49 BMI result Body Mass Index 33.3 Tobacco/Smoking Status: Tobacco use Status Tobacco use date assessed 05/29/24 08/14/24 12:50 Patient Tobacco Use Status Former Tobacco user 08/14/24 12:50 e-Cigarette/Vaping Use Never Used 08/14/24 12:50 Thrive Assessment: Date of Thrive Assessment Date Thrive assessed 01/23/24 08/14/24 12:50 Const General: healthy appearing, no acute distress, alert and awake Nutritional Appearance: well nourished Orientation/consciousness: oriented to person, oriented to place and oriented to time HENMT Ears: TM's normal bilaterally General nose exam: Normal nasal mucous membranes and turbinates present Eyes Conjunctivae: conjunctivae normal Sclerae: sclerae normal Pupils: Equal, round and reactive pupils present Neck Neck: Yes no lymphadenopathy and Yes no JVD Thyroid: Thyroid normal Carotids: no bruits Resp Effort & Inspection: normal respiratory effort and not tachypneic Auscultation: no crackles, no rales, no rhonchi and no wheezes Cardio Rate: regular rate Rhythm: regular rhythm Heart sounds: no murmurs and normal S1 and S2 GI Palpation (GI): Soft to palpation, nontender, no hepatomegaly and no splenomegaly Auscultation: normal bowel sounds Skin General skin exam: no rashes or lesions noted and dry skin Neuro General: oriented to person, oriented to place and oriented to time Cranial nerves: Yes Equal, round and reactive pupils present Speech: No Abnormal speech present Gait exam (Neuro): Normal gait present Motor exam (neuro): no tremor noted Extrem Right upper extremity: full ROM Left upper extremity: full ROM Right lower extremity: full ROM; no edema Left lower extremity: full ROM; no edema Psych Mental Status: mental status grossly normal Speech and movement: Normal speech and movement present Affect: normal affect Attitude: cooperative Thought process: Normal thought process present Coding Level of Care Code Est Pt Level 3 (60383) Diagnoses Chronic abdominal pain R10.9; G89.29 Assessment & Plan Assessment & Plan (1) Chronic abdominal pain: Code(s): R10.9 - Unspecified abdominal pain; G89.29 - Other chronic pain Category: Medical Plan: I discussed with the patient the likelihood of gastritis or another gastrointestinal condition as the cause of his upper abdominal pain. We agreed on the importance of having a CT scan to rule out structural issues and a stool test to identify any infections. I informed him about the potential influence of aspirin and clopidogrel on his gastrointestinal symptoms and explained our plan to consult with a whiting can worker for a more thorough evaluation. We talked through the options of potentially adjusting his medication regimen, contingent on test outcomes. I advised on possible dietary measures, such as the use of a fiber supplement, to better manage gastrointestinal symptoms. Arrangement for follow-up after completing the diagnostic tests was confirmed. Orders: Orders H pylori Ag Stool Today G89.29 - Other chronic pain, R10.9 - Unspecified abdominal pain Lipase Today G89.29 - Other chronic pain, R10.9 - Unspecified abdominal pain Complete Blood Count no Diff Today G89.29 - Other chronic pain, R10.9 - Unspecified abdominal pain CT abdomen wo IV con 08/14/24 G89.29 - Other chronic pain, R10.9 - Unspecified abdominal pain Referrals Gastroenterology Referral G89.29 - Other chronic pain, R10.9 - Unspecified abdominal pain
== END 2024-08-14 13:06 | disposition home or self-care (01) ==
PROVIDERS: PCP Physician Assistant; Visit Provider Physician Assistant
DX: R10.9 Unspecified abdominal pain (principal); G89.29 Other chronic pain

== ENCOUNTER → 2024-08-14 12:34 | Outpatient (BNVA) | payer MEDICARE, SELFPAY | PROVIDERS: PCP Physician Assistant; Visit Provider Physician Assistant | DX: R10.9 Unspecified abdominal pain (principal); G89.29 Other chronic pain | CPT/HCPCS: 99212 ==

== ENCOUNTER 2024-08-15 07:42 | Outpatient (REF) | payer MEDICARE, SELFPAY ==
[2024-08-15 08:29] LABS: Hematocrit 42.3 % (42.0-52.0); Hemoglobin 14.3 g/dl (14.0-18.0); Mean Corpuscular HGB Conc 33.8 g/dl (31.0-36.0); Mean Corpuscular Hemoglobin 30.8 pg (27.0-33.0); Mean Corpuscular Volume 91.2 fL (80.0-98.0); Mean Platelet Volume 10.1 fL (9.4-12.4); Platelet Count 208 X10*3/uL (160-400); Red Blood Count 4.64 X10*6/uL (4.60-5.80); White Blood Count 7.2 X10*3/uL (4.8-10.8)
[2024-08-15 08:54] LABS: Lipase 18 U/L (8-78)
== END 2024-08-15 07:43 | disposition home or self-care (01) ==
LOC: HO.LAB 07:42
PROVIDERS: PCP Physician Assistant; Visit Provider Physician Assistant
DX: R10.9 Unspecified abdominal pain (principal); G89.29 Other chronic pain
CPT/HCPCS: 36415; 83690; 85027; 87338

== ENCOUNTER 2024-09-16 07:40 | Outpatient (REF) | payer MEDICARE, SELFPAY ==
[2024-09-16 08:38] LABS: Alanine Aminotransferase 23 U/L (0-40); Albumin Level 3.7 g/dL (3.5-5.0); Anion Gap 12 (12-20); Aspartate Amino Transferase 29 U/L (5-37); Bilirubin Direct 0.1 mg/dL (0.0-0.5); Bilirubin Total 0.5 mg/dL (0.0-1.0); Blood Urea Nitrogen 10 mg/dL (9-16); Calcium 8.8 mg/dL (8.4-10.2); Carbon Dioxide 25 mmol/L (22-29); Chloride 110 mmol/L (96-108); Estimated Glomerular Filt Rate > 60; Glucose Random 102 mg/dL (60-115); Potassium 4.6 mmol/L (3.3-5.1); Sodium 142 mmol/L (135-145); Total Protein 7.4 g/dL (6.5-8.0)
[2024-09-16 08:50] LABS: Alkaline Phosphatase 137 U/L (39-117)
[2024-09-16 09:31] LABS: Buprenorphine Scr Not Detected (Not Detect)
== END 2024-09-16 07:41 | disposition home or self-care (01) ==
LOC: HO.LAB 07:40
PROVIDERS: PCP Physician Assistant; Visit Provider Physician Assistant
DX: F11.20 Opioid dependence, uncomplicated (principal); R10.11 Right upper quadrant pain
CPT/HCPCS: 36415; 80048; 80076; 80307

== ENCOUNTER 2024-10-17 09:18 | Outpatient (REF) | payer MEDICARE, SELFPAY ==
--- NOTE | ~2024-10-17 | CT_ITS ---
CLINICAL HISTORY: R10.9 - Unspecified abdominal pain CT abdomen and pelvis with contrast Comparison: CT - CT ABDOMEN PELVIS W CON - 08/11/20 19:51 EST Findings: The lung bases demonstrate mild chronic interstitial changes. The liver, spleen, gallbladder, adrenal glands and pancreas are unremarkable. Kidneys demonstrate low-density lesions, those large enough to measure are benign cysts. The bladder is unremarkable. The prostate gland is within normal limits. There is abnormal thickening of the distal and terminal ileum. Skip lesion noted within the mid ileum, coronal 42. No additional definite segments of bowel thickening. No obstruction. No free air. No abscess or fistula. Moderate diffuse atherosclerotic disease. Degenerative changes and postsurgical changes seen within the spine. Impression: There is a moderately long segment of abnormal thickening involving the distal and terminal ileum, with a skip lesion involving the mid ileum. Correlation for any history of Crohn's disease. No abscess, free air or pneumatosis. This document has been electronically signed by: John Agrawal MD on 10/17/2024 13:12:55
[2024-10-17] MEDS: iohexoL 350 MG/ML 100 ML INFUS..BTL 85 ML IV (10:28)
== END 2024-10-17 09:19 | disposition home or self-care (01) ==
LOC: HO.CT 09:18
PROVIDERS: PCP Physician Assistant; Visit Provider Physician Assistant
DX: R10.9 Unspecified abdominal pain (principal); G89.29 Other chronic pain
CPT/HCPCS: 74177; Q9967

== ENCOUNTER → 2024-10-17 09:20 | Outpatient (BNV) | payer MEDICARE, SELFPAY | PROVIDERS: PCP Physician Assistant; Visit Provider Radiology Vascular & Interventional Radiology | DX: R10.9 Unspecified abdominal pain (principal) | CPT/HCPCS: 74177 ==

== ENCOUNTER 2024-10-23 09:55 | Outpatient (REF) | payer MEDICARE, SELFPAY ==
[2024-10-28 21:35] LABS: Calprotectin, Fecal 169 mcg/g
== END 2024-10-23 09:56 | disposition home or self-care (01) ==
LOC: HO.LNP 09:55
PROVIDERS: Visit Provider Physician Assistant
DX: K52.9 Noninfective gastroenteritis and colitis, unspecified (principal)
CPT/HCPCS: 83993

== ENCOUNTER 2024-11-20 13:43 | Outpatient (AMB) | payer MEDICARE, SELFPAY ==
--- NOTE | 2024-11-20 13:46 | A.OFFVIS_ITS ---
Vital Signs 11/20/24 14:05 Height 5 ft 4 in Weight 192 lb BMI 33.0 BP 144/86 H Blood Pressure Location Rt brachial Position Sitting Pulse 78 Pulse Source Pulse Oximeter Pulse Oximetry (%) 97 Oxygen Delivery Method Room Air Intake Visit Reasons: abdominal pain Intake Note: NEW PATIENT for colo screening. 3rd lifetime. Last 2014 + 2004 Chief Complaint; C/O worsening reflux w/o dysphagia, epigastric pain, and diarrhea. Pt states that he often has significant GI upset and can feel pockets of gas throughout the abdomen. Pt has been taking omeprazole for extended period but notices a decrease in therapeutic effect. Pt denies any recent hx of EGD and cannot recall if one was ever done in the past. Seo Specialist Required: Yes Seo Specialist Services: Seo Specialist Offered & Declined Seo Specialist Name: Spouse Information Interpreted: non-clinical & clinical Accompanied by: Spouse Allergies No Known Allergies [No Known Allergies*] Allergy (Verified 11/26/24 08:31) HPI HPI abdominal pain: Details: 74-year-old male with past medical history of abdominal pain, reflux, lumbar radiculopathy, cervical radiculopathy, hypertension, diabetes is here today for initial consultation. Patient was sent to us by his PCP. Patient is O[place]i speaking this provider [place] language is [place]i. Patient is accompanied by his who is here to help answers questions. Patient reports acid reflux that is not very well controlled by current dose of PPI. Patient is taking omeprazole daily. Admits forgetting it sometimes. Not on any particular diet, not always avoids culprits. Patient has been having abdominal bloating and cramps that are not always associated to meals. Patient feels like the gas and bubbles are moving throughout the whole abdomen making him very uncomfortable and bloated. Patient reports the symptoms have been going on for few months and are getting worse. PCP ordered CT scan that showed inflammation in ileum suspicion for Crohn's. Fecal calprotectin was ordered and it was elevated. Laboratory Tests 09/16/24 10/23/24 07:57 08:30 AST 29 ALT 23 Alkaline Phosphatase 137 H Stool Calprotectin [address] SCAN OF ABDOMEN AND PELVIS 10/17/2024 Impression: There is a moderately long segment of abnormal thickening involving the distal and terminal ileum, with a skip lesion involving the mid ileum. Correlation for any history of Crohn's disease. No abscess, free air or pneumatosis. [facility] Medical History COVID-19 Cervical radiculopathy Diabetic nephropathy Hypertension Diabetes mellitus Depression Type 2 diabetes mellitus without complications Coronary artery disease (CAD) excluded Failed back syndrome, lumbar Poor dental hygiene Surgical History History of colonoscopy History of tooth extraction History of cardiac catheterization History of heart artery stent History of lumbar fusion Family History Father No problems noted. 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) Vision needs: Yes (wears glasses.) Review of Systems Const Denies weight gain and Denies weight loss ENT Reports no additional complaints, Denies dysphagia and Denies odynophagia Card Reports no additional complaints Resp Reports no additional complaints GI Reports abdominal pain, Reports belching, Denies melena, Reports bloating, Denies change in bowel habits, Reports constipation, Denies dysphagia, Denies excessive flatus, Denies dyspepsia, Reports heartburn, Denies diarrhea, Reports loose stools, Denies nausea, Denies odynophagia and Denies vomiting Reports no additional complaints Musc Reports no additional complaints Neuro Reports no additional complaints Psych Reports no additional complaints Endo Reports no additional complaints Physical Exam Vital Signs: Last Vital Signs Pulse 78 11/20/24 14:05 BP 144/86 H 11/20/24 14:05 Pulse Ox 97 11/20/24 14:05 Oxygen Delivery Method Room Air 11/20/24 14:05 BMI result Body Mass Index 33.0 Const General: healthy appearing, no acute distress and well developed Nutritional Appearance: well nourished and obese Orientation/consciousness: patient oriented x3 Resp Effort & Inspection: normal respiratory effort, able to speak in complete sentences, no tracheal deviation and symmetric chest movement Auscultation: clear to auscultation bilaterally Cardio Rate: regular rate GI Inspection: Yes normal to inspection, No distended and Yes obesity Palpation (GI): Soft to palpation, not firm, nontender and No hepatosplenomegaly present Auscultation: normal bowel sounds General: Yes no CVA tenderness Back/Spine/Pelvis Back: no CVA tenderness Skin General skin exam: elasticity normal, turgor normal and dry skin Neuro General: patient oriented x3 Psych Appearance: grossly normal Mental Status: mental status grossly normal Assessment & Plan Assessment & Plan (1) Screen for colon cancer: Code(s): Z12.11 - Encounter for screening for malignant neoplasm of colon (2) IBD (inflammatory bowel disease): Code(s): K52.9 - Noninfective gastroenteritis and colitis, unspecified Category: Medical (3) Postprandial abdominal bloating: Code(s): R14.0 - Abdominal distension (gaseous) (4) Postprandial diarrhea: Code(s): K52.9 - Noninfective gastroenteritis and colitis, unspecified Plan Will repeat fecal calprotectin and add lactoferrin, will check lipase, transglu taminase. Will check vitamin B12, folate, vitamin-D level as well as magnesium. Patient will be sent for CT enterography. Patient will be started on mesalamine daily. He is due to go for colonoscopy which we will arrange and we will add upper endoscopy as well as patient has been on PPI for quite some time. He was encouraged to take it daily from now on to avoid symptoms. We did talk about low FODMAP diet as some of the food my irritating his bowels even more. List of food recommended as well as list of food to avoid given to patient. Patient will follow-up in 2 months, sooner on as needed basis. Patient is agreeable to this plan and verbalizes understanding of instructions. He was given the opportunity to ask questions and all questions answered. Thank you for allowing me to participate in his care Orders: Orders TSH reflex Free T4 11/20/24 K59.00 - Constipation, unspecified Transglutaminase IgA 11/20/24 R10.9 - Unspecified abdominal pain Calprotectin, Fecal 11/21/24 R15.9 - Full incontinence of feces Lactoferrin, Fecal, Quant. 11/21/24 R19.7 - Diarrhea, unspecified Lipase 11/20/24 R10.9 - Unspecified abdominal pain Vitamin B12 and Folate 11/20/24 R19.7 - Diarrhea, unspecified Vitamin D 25-OH (D2 and D3) 11/20/24 E55.9 - Vitamin D deficiency, unspecified Magnesium 11/20/24 N18.9 - Chronic kidney disease, unspecified CT enterography 11/20/24 R19.5 - Other fecal abnormalities, K52.9 - Noninfective gastroenteritis and colitis, unspecified, K50.00 - Crohn's disease of small intestine without complications C Reactive Protein 11/20/24 K58.9 - Irritable bowel syndrome, unspecified Medications: New mesalamine 2.4 grams (2 x 1.2 gram) PO DAILY 180 tabs 3RF Refilled omeprazole 40 mg PO DAILY 90 caps 1RF 90 days K21.9 - Gastro-esophageal reflux disease without esophagitis Coding Level of Care Code New Pt Level 4 (25161) Diagnoses Screen for colon cancer Z12.11 IBD (inflammatory bowel disease) K52.9 Postprandial abdominal bloating R14.0 Postprandial diarrhea K52.9 Time Spent (min) 50 Comment 35 minutes spent with patient and additional 15 minutes spent reviewing his records
[2024-11-20 14:05] VITALS: BP 144/86; PULSE 78; O2SAT 97; BMI 33.0
== END 2024-11-20 15:03 | disposition home or self-care (01) ==
LOC: HO.HGI 13:43
PROVIDERS: PCP Physician Assistant; Visit Provider Nurse Practitioner Family
DX: K52.9 Noninfective gastroenteritis and colitis, unspecified (principal); R14.0 Abdominal distension (gaseous); Z12.11 Encounter for screening for malignant neoplasm of colon
CPT/HCPCS: 99204

== ENCOUNTER 2024-11-20 13:43 | Outpatient (REF) | payer MEDICARE, SELFPAY ==
[2024-11-20 17:39] LABS: C Reactive Protein 0.22 mg/dL (< or = 0.50); Lipase 18 U/L (8-78); Magnesium 1.5 mg/dL (1.6-2.6)
[2024-11-20 17:42] LABS: TSH reflex Free T4 0.74 uIU/mL (0.32-4.0)
[2024-11-20 17:59] LABS: Folate 13.1 ng/mL (> or = 4.0); Vitamin B12 292 pg/mL (200-900)
[2024-11-21 14:12] LABS: Transglutaminase IgA <1.0 U/mL
[2024-11-24 13:59] LABS: Vitamin D 25-OH, D2 <4 ng/mL; Vitamin D 25-OH, D3 32 ng/mL; Vitamin D 25-OH, Total 32 ng/mL (30-100)
== END 2024-11-20 13:44 | disposition home or self-care (01) ==
LOC: HO.LAB 13:43
PROVIDERS: PCP Physician Assistant; Visit Provider Nurse Practitioner Family
DX: K59.00 Constipation, unspecified (principal); R10.9 Unspecified abdominal pain; R19.7 Diarrhea, unspecified; E55.9 Vitamin D deficiency, unspecified; N18.9 Chronic kidney disease, unspecified; K58.9 Irritable bowel syndrome, unspecified; K52.9 Noninfective gastroenteritis and colitis, unspecified; Z12.11 Encounter for screening for malignant neoplasm of colon
CPT/HCPCS: 36415; 82306; 82607; 82746; 83690; 83735; 84443; 86140; 86364; 99202

== ENCOUNTER 2024-11-21 10:30 | Outpatient (REF) | payer MEDICARE, SELFPAY ==
[2024-11-27 18:29] LABS: Calprotectin, Fecal 272 mcg/g
== END 2024-11-21 10:31 | disposition home or self-care (01) ==
LOC: HO.LNP 10:30
PROVIDERS: Visit Provider Nurse Practitioner Family
DX: R15.9 Full incontinence of feces (principal); R19.7 Diarrhea, unspecified
CPT/HCPCS: 83631; 83993

== ENCOUNTER 2024-11-26 08:05 | Outpatient (AMB) | payer MEDICARE, SELFPAY ==
--- NOTE | 2024-11-26 08:15 | A.OFFPC_ITS ---
Vital Signs 11/26/24 08:17 Height 5 ft 4 in Weight 194 lb BMI 33.3 BP 120/68 Blood Pressure Location Lt brachial Position Sitting Pulse 87 Pulse Source Pulse Oximeter Temp 97.1 F Temp Source Temporal Artery Scan Pulse Oximetry (%) 96 Oxygen Delivery Method Room Air Intake Visit Reasons: Worker's comp visit Intake Note: Patient is here to follow up on Workers Compensation Claim that occurred on . 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: Not Required per policy Accompanied by: Self / Same As Patient Allergies No Known Allergies [No Known Allergies*] Allergy (Verified 11/26/24 08:31) Medication List - Last Reconciled 11/26/24 by Tc Peoples PA-C amlodipine 10 mg PO DAILY aspirin 81 mg PO DAILY 90 days atorvastatin 80 mg PO DAILY betamethasone dipropionate 0.05% 1 appl topical DAILY PRN 30 days blood sugar diagnostic ([employer] Verio test strips) Testing twice a day blood-glucose meter ([employer] Verio Flex Meter) Testing twice a day buprenorphine HCl (Belbuca) 450 mcg buccal Q12H 30 days cane As directed chlorhexidine gluconate 0.12% 15 mL PO TID clonazepam 1 mg PO DAILY 30 days clopidogrel 75 mg PO DAILY cyclobenzaprine 10 mg PO Q8H 30 days fludrocortisone 0.1 mg PO DAILY fluoxetine 80 mg (4 x 20 mg) PO DAILY lancets ([employer] Delica Plus Lancet) Testing twice a day lisinopril 5 mg PO DAILY magnesium oxide 400 mg PO DAILY mesalamine 2.4 grams (2 x 1.2 gram) PO DAILY metformin 1,000 mg PO BID metoprolol tartrate 25 mg PO BID miscellaneous medical supply miscellaneous; TENS Unit and pads ofloxacin 0.3% 1 drp ophthalmic (eye) BID 30 days omeprazole 40 mg PO DAILY 90 days prednisolone acetate 1% 1 drp ophthalmic (eye) QID simethicone (Gas-X Extra Strength) 125 mg PO TID PRN 30 days Tobacco use date assessed: 11/26/24 Fall risk assessment: No Falls in past year Last assessed Fall Risk: 11/26/24 Dental Screening Dental Screen Date: 11/26/24 Did you have a dental visit in the last 12 months?: Yes Did you have a dental problem in the last 6 months where you did not have access to dental care?: No Was dental information given to patient?: Patient has dentist HPI Worker's comp visit HPI Details Patient is a 74-year-old male here today for a [facility] visit.?..? 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 He has seen a neurosurgeon and Dr. Get montaño at [facility].? He was seeing pain management center at [facility] on [facility] and has gotten cortisone injection though feels it has not helped reduce his back pain. For now he reports his pain is stable not interested in any further surgery at this time he is considering medical marijuana to help try to get off of prescription medications . ? He continues to ambulate with a walker / cane to assist due to his continued lower extremity weakness and lumbar spine pain.? He does use a portable TENS unit on a daily basis for his lumbar spine. Current? pain medicine regime-->? Belbuca 450 mcg twice a day along?with? clonazepam 1 mg daily . He reports he gets decent pain relief with the use of these medications and continue him on these for now [facility] Medical History COVID-19 Cervical radiculopathy Diabetic nephropathy Hypertension Diabetes mellitus Depression Type 2 diabetes mellitus without complications Coronary artery disease (CAD) excluded Failed back syndrome, lumbar Poor dental hygiene Surgical History History of colonoscopy History of tooth extraction History of cardiac catheterization History of heart artery stent History of lumbar fusion Family History Father No problems noted. 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) Vision needs: Yes (wears glasses.) Questionnaire PHQ-9 Over the last 2 weeks, how often have you been bothered by any of the following problems? 1. Little interest or pleasure in doing things: not at all 2. Feeling down, depressed, or hopeless: not at all 3. Trouble falling or staying asleep, or sleeping too much: not at all 4. Feeling tired or having little energy: not at all 5. Poor appetite or overeating: not at all 6. Feeling bad about yourself - or that you are a failure or have let yourself or your family down: not at all 7. Trouble concentrating on things, such as reading the newspaper or watching television: not at all 8. Moving or speaking so slowly that other people could have noticed. Or the opposite - being so fidgety or restless that you have been moving around a lot more than usual: not at all 9. Thoughts that you would be better off or of hurting yourself in some way: not at all Total score: 0 Depression Screening Interpretation: Negative Depression Screening Done: Yes 60054 - PHQ-9 Billing: Yes Source: Developed by Drs. Fuad Buchanan, Justina Leyva, [employer] and colleagues, with an educational yolanda from [employer]. Thrive Questionnaire Date Thrive assessed: 11/26/24 I am a: Patient What is your living situation today?: I have a steady place to live Within the past 12 months, did the food you bought not last and you didn't have the money to get more?: Never true Within the past 12 months, did you worry whether your food would run out before you got money to buy more?: Never true Do you have trouble paying for medicines?: No Do you have trouble getting transportation to medical appointments?: No Do you have trouble paying your heating and electricity bill?: No Do you have trouble taking care of your child, family member or friend?: No Do you have trouble with day-to-day activities such as bathing, preparing meals, shopping, managing finances, etc.?: No Are you currently unemployed and looking for a job?: No Are you interested in more education?: No Please select the resources that you would like help with: None Currently or been in a relationship where the following occur: No concerns reported THRIVE Score: 0 AUDIT C Alcohol Use Questionnaire (AUDIT-C) 1. How often do you have a drink containing alcohol?: Never Total Score: 0 [facility]-7 AMB Questionnaire [facility]-7 Date [facility] - 7 assessed: 11/26/24 Feeling nervous, anxious, or on edge: 0 = Not at all Not being able to stop or control worryin = Not at all Worrying too much about different things: 0 = Not at all Trouble relaxin = Not at all Being so restless that it is hard to sit still: 0 = Not at all Becoming easily annoyed or irritable: 0 = Not at all Feeling afraid as if something awful might happen: 0 = Not at all Total [facility]-7 score (0-4 normal; 5-9 mild; 10-14 moderate; 15-21 severe): 0 Source: Developed by Drs. Fuad Buchanan, Justina Leyva, [employer] and colleagues, with an educational yolanda from [employer]. [facility]ER-7 Assessment Billing [facility]-7 Assessment Tool: [facility]ER-7 Assessment 45427 Review of Systems Const Denies headache(s) Eyes Denies loss of vision ENT Denies vertigo, Denies dizziness, Denies headache(s) and Denies sore throat Card Denies chest pain, Denies leg edema and Denies lightheadedness Resp Denies cough, Denies hemoptysis and Denies wheezing GI Denies abdominal pain, Denies melena, Denies constipation, Denies diarrhea and Denies vomiting Denies dysuria, Denies urinary frequency and Denies urinary urgency Musc Denies arthralgias, Denies joint swelling, Denies numbness and Denies tingling Neuro Denies Abnormal speech present, Denies behavioral changes, Denies vertigo, Denies dizziness, Denies headache(s), Denies loss of vision, Denies memory loss, Denies numbness and Denies tingling Psych Denies anxiety, Denies behavioral changes, Denies depression, Denies memory loss and Denies panic attacks Roger/Lymph Denies easy bleeding and Denies easy bruising Aller/Immun Denies wheezing Physical exam (Primary Care) Vital Signs: Last Vital Signs Temp 97.1 F 11/26/24 08:17 Pulse 87 11/26/24 08:17 BP 120/68 11/26/24 08:17 Pulse Ox 96 11/26/24 08:17 Oxygen Delivery Method Room Air 11/26/24 08:17 BMI result Body Mass Index 33.3 Tobacco/Smoking Status: Tobacco use Status Tobacco use date assessed 11/26/24 11/26/24 08:26 Patient Tobacco Use Status Former Tobacco user 11/26/24 08:26 e-Cigarette/Vaping Use Never Used 11/26/24 08:26 PHQ-9: PHQ-9 Score PHQ-9: Total score 0 11/26/24 09:47 Depression Screening Interpretation: Negative Thrive Assessment: Date of Thrive Assessment Date Thrive assessed 11/26/24 11/26/24 08:26 Currently or been in a relationship where the following occur: No concerns reported Const General: healthy appearing, no acute distress, alert and awake Nutritional Appearance: well nourished Orientation/consciousness: oriented to person, oriented to place and oriented to time HENMT Ears: TM's normal bilaterally General nose exam: Normal nasal mucous membranes and turbinates present Eyes Conjunctivae: conjunctivae normal Sclerae: sclerae normal Pupils: Equal, round and reactive pupils present Neck Neck: Yes no lymphadenopathy and Yes no JVD Thyroid: Thyroid normal Carotids: no bruits Resp Effort & Inspection: normal respiratory effort and not tachypneic Auscultation: no crackles, no rales, no rhonchi and no wheezes Cardio Rate: regular rate Rhythm: regular rhythm Heart sounds: no murmurs and normal S1 and S2 GI Palpation (GI): Soft to palpation, nontender, no hepatomegaly and no splenomegaly Auscultation: normal bowel sounds Back/Spine/Pelvis Other: LIMITED RANGE OF MOTION OF LUMBAR SPINE, AMBULATING WITH AN ANTALGIC GAIT, AMBULATION NOTED TO BE WITH A CANE Skin General skin exam: no rashes or lesions noted and dry skin Neuro General: oriented to person, oriented to place and oriented to time Cranial nerves: Yes Equal, round and reactive pupils present Speech: No Abnormal speech present Gait exam (Neuro): Normal gait present Motor exam (neuro): no tremor noted Extrem Right upper extremity: full ROM Left upper extremity: full ROM Right lower extremity: full ROM; no edema Left lower extremity: full ROM; no edema Psych Mental Status: mental status grossly normal Speech and movement: Normal speech and movement present Affect: normal affect Attitude: cooperative Thought process: Normal thought process present Coding Level of Care Code Est Pt Level 3 (93567) Diagnoses Lumbar disc herniation with myelopathy M51.06 Additional Codes PHQ-9 - 80329 - PHQ-9 Billing: Yes ([id number]) [facility]ER-7 Assessment Billing - [facility]ER-7 Assessment Tool: [facility]ER-7 Assessment 91498 ([id number]) Assessment & Plan Assessment & Plan (1) Lumbar disc herniation with myelopathy: Code(s): 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, lumbar region Category: Medical Plan: Has a history of lumbar spine fusion surgery.. Patient continues with chronic lower lumbar spine pain secondary to her worker's comp incident many years ago. Continues to do fairly well with current medication Belbuca, cyclobenzaprine, clonazepam. He does continue to have breakthrough pain and weakness in his lower extremity, continues to wear TENS unit over his lower lumbar spine.
[2024-11-26 08:17] VITALS: BP 120/68; PULSE 87; TEMP 36.2; O2SAT 96; BMI 33.3
== END 2024-11-26 08:44 | disposition home or self-care (01) ==
LOC: HO.HMCH 08:06
PROVIDERS: PCP Physician Assistant; Visit Provider Physician Assistant
DX: M51.06 Intervertebral disc disorders with myelopathy, lumbar region (principal)

== ENCOUNTER → 2024-11-26 08:05 | Outpatient (BNVA) | payer MEDICARE, SELFPAY | PROVIDERS: PCP Physician Assistant; Visit Provider Physician Assistant | DX: M51.06 Intervertebral disc disorders with myelopathy, lumbar region (principal) | CPT/HCPCS: 96127; 99212 ==

== ENCOUNTER 2024-12-09 07:29 | Outpatient (REF) | payer MEDICARE, SELFPAY ==
--- NOTE | ~2024-12-09 | CT_ITS ---
EXAMINATION: CT ENTEROGRAPHY ABDOMEN AND PELVIS WITH CONTRAST CLINICAL INFORMATION: Crohn's, gastroenteritis; R19.5 COMPARISON: CT abdomen and pelvis 10/17/2024. TECHNIQUE: CT abdomen and pelvis examination acquired in axial plane with oral Breeza(1500mL) to distend the bowel. The patient was injected with 85 mL Omnipaque 350 intravenous contrast which was administered without adverse effect. Coronal and sagittal reformatted images were obtained at the technologist's workstation. This CT examination was performed using dose optimization techniques as appropriate, variously including the following: *Automated exposure control *Adjustment of mA and/or kV according to patient size (this includes techniques or standardized protocols for targeted exams where dose is matched to indication/reason for exam; i.e. extremities or head) *Use of iterative reconstruction technique FINDINGS: GASTROINTESTINAL FINDINGS: Stomach: Well-distended and normal in appearance. Small intestine: The duodenum is mildly contracted although grossly normal appearance. The remainder of the small bowel is mildly limited in evaluation due to areas of suboptimal negative contrast material distention. There is a long segment of terminal ileum which demonstrates irregular wall thickening and mucosal enhancement, leading into the ileocecal valve (series 7, images 17-38). Findings suggest active Crohn's disease. Large intestine: Well-distended and normal in appearance. No perirectal changes demonstrated. The appendix is not visualized. Additional findings: No abnormal enhancement of the vasa recta or significant mesenteric or retroperitoneal lymphadenopathy is seen. No abdominal abscess or fistulous tract demonstrated. OTHER: LUNG BASES: Aside from mild dependent atelectasis, lung bases are clear. LIVER, GALLBLADDER, AND BILIARY TREE: The liver is normal in size, shape, and attenuation. No focal hepatic lesion or biliary ductal dilatation is present. The gallbladder is unremarkable with no evidence of radiopaque gallstones, gallbladder wall thickening, or obvious pericholecystic inflammatory changes. PANCREAS: Unremarkable. SPLEEN: Unremarkable. ADRENAL GLANDS: Unremarkable. KIDNEYS AND URETERS: The kidneys are normal in size, shape, and attenuation. No hydronephrosis, hydroureter, or calculi seen. There is a 3.5 cm left renal lower pole simple cyst. There is a 1.6 cm right renal lower pole simple cyst. BLADDER: Completely collapsed. Allowing for poor distention, no abnormality. ABDOMINAL WALL: No significant hernia is appreciated. LYMPH NODES: None enlarged by size criteria. VASCULAR: Moderate to extensive atheromatous calcification of the aorta and iliac vessels. No aneurysm. PELVIC VISCERA: The prostate is unremarkable in appearance. OSSEOUS STRUCTURES: No suspicious lytic or blastic bone lesions. Mild degenerative changes in the hip joints and SI joints. Mild spinal degenerative changes. There has been a prior fusion of L5-S1 with titanium cages. CT/CT enterography IMPRESSION: 1. There is a moderate length segment of distal ileum which demonstrates irregular wall thickening, inflammation, and enhancement, in keeping with active Crohn's. There is a similar skip lesion as detailed in the report from 10/17/2024. 2. There is otherwise no additional abnormal stomach, duodenal, small bowel, or colonic abnormality. 3. There are small renal cysts. Kidneys otherwise normal. Electronically signed by: Quang Jarrell MD 12/09/2024 04:08 PM EDT
[2024-12-09] MEDS: iohexoL 350 MG/ML 75 ML INFUS..BTL 85 ML IV (15:39)
[2024-12-09] MEDS: Sorbitol/Mannit/Xanth Imaging 500 ML LIQUID 1500 ML PO (15:40)
[2024-12-10 07:57] LABS: Creatinine POC 1.1 mg/dL (0.5-1.4); GFR POC > 60
== END 2024-12-09 07:30 | disposition home or self-care (01) ==
LOC: HO.CT 07:29
PROVIDERS: PCP Physician Assistant; Visit Provider Nurse Practitioner Family
DX: R19.5 Other fecal abnormalities (principal); K52.9 Noninfective gastroenteritis and colitis, unspecified; K50.00 Crohn's disease of small intestine without complications
CPT/HCPCS: 74177; 82565; Q9967

== ENCOUNTER → 2024-12-09 07:31 | Outpatient (BNV) | payer MEDICARE, SELFPAY | PROVIDERS: PCP Physician Assistant; Visit Provider Radiology Diagnostic Radiology | DX: N28.1 Cyst of kidney, acquired (principal); K63.89 Other specified diseases of intestine | CPT/HCPCS: 74177 ==

== ENCOUNTER 2025-01-14 11:12 | Outpatient (AMB) | payer MEDICARE, SELFPAY ==
--- NOTE | 2025-01-14 11:15 | MHC.OFFVIS ---
Vital Signs 01/14/25 11:16 Height 5 ft 4 in Weight 195 lb BMI 33.5 BP 152/82 H Blood Pressure Location Lt brachial Position Sitting Pulse 64 Pulse Source Pulse Oximeter Pulse Oximetry (%) 97 Oxygen Delivery Method Room Air Intake Visit Reasons: FUV. Discuss egd + colo + imaging Intake Note: ESTABLISHED PATIENT for mgmt of GERD + abd pain. To discuss colo/egd. CC; Pt denies any GI sx or concerns at this time. Pt comments that nothing has changed and he is doing well at the moment. 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 Discuss egd + colo + imaging: Details: LAST VISIT: Screen for colon cancer IBD (inflammatory bowel disease) Postprandial abdominal bloating Postprandial diarrhea Plan Will repeat fecal calprotectin and add lactoferrin, will check lipase, transglutaminase. Will check vitamin B12, folate, vitamin-D level as well as magnesium. Patient will be sent for CT enterography. Patient will be started on mesalamine daily. He is due to go for colonoscopy which we will arrange and we will add upper endoscopy as well as patient has been on PPI for quite some time. He was encouraged to take it daily from now on to avoid symptoms. We did talk about low FODMAP diet as some of the food my irritating his bowels even more. List of food recommended as well as list of food to avoid given to patient. Patient will follow-up in 2 months, sooner on as needed basis. Patient is agreeable to this plan and verbalizes understanding of instructions. He was given the opportunity to ask questions and all questions answered. ? Thank you for allowing me to participate in his care Orders Orders TSH reflex Free T4 11/20/24 K59.00 Transglutaminase IgA 11/20/24 R10.9 Calprotectin, Fecal 11/21/24 R15.9 Lactoferrin, Fecal, Quant. 11/21/24 R19.7 Lipase 11/20/24 R10.9 Vitamin B12 and Folate 11/20/24 R19.7 Vitamin D 25-OH (D2 and D3) 11/20/24 E55.9 Magnesium 03/19/[address] enterography 11/20/24 R19.5, K52.9, K50.00 C Reactive Protein 11/20/24 K58.9 Medications New mesalamine 2.4 grams (2 x 1.2 gram) PO DAILY 180 tabs 3RF Refilled omeprazole 40 mg PO DAILY 90 caps 1RF 90 days K21.9 TODAY'S VISIT Patient is here today for follow-up and to discuss going for colonoscopy. Patient is taking mesalamine daily and he reports that his symptoms are suppressed. Patient no longer has abdominal pain, bloating. Patient reports that he is moving his bowels better. Patient is trying to change his diet and eating healthier. Taking omeprazole daily and his symptoms of acid reflux are suppressed. Patient denies melena, hematochezia, unintentional weight loss or ribbon like stools. Patient denies any mucus in his stool. Enterography showed small fragment of distal ileum thickness suggesting inflammation like Crohn's. Stool calprotectin confirms it. Patient reports that since he has been taking them mesalamine in the matter of few weeks his symptoms got better. Patient also took budesonide has 4 more days of treatment. Patient denies any issues with anesthesia in the past. Denies any chest pain or shortness of breath. However patient does have a history of coronary stents and last visit with sensitizer was early last year. Patient reports that he called his sensitizer's office to make an appointment. Will will ask RN to call the office for clearance. Patient denies any history of sleep apnea. Currently patient is on low-dose aspirin and Plavix. [facility] Medical History Crohn disease COVID-19 Cervical radiculopathy Diabetic nephropathy Hypertension Diabetes mellitus Depression Type 2 diabetes mellitus without complications Coronary artery disease (CAD) excluded Failed back syndrome, lumbar Poor dental hygiene Surgical History History of colonoscopy History of tooth extraction History of cardiac catheterization History of heart artery stent History of lumbar fusion Family History Father No problems noted. 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) Vision needs: Yes (wears glasses.) Review of Systems Const Denies weight gain and Denies weight loss ENT Reports no additional complaints, Denies dysphagia and Denies odynophagia Card Reports no additional complaints Resp Reports no additional complaints GI Reports abdominal pain, Reports belching, Denies melena, Reports bloating, Denies change in bowel habits, Reports constipation, Denies dysphagia, Denies excessive flatus, Denies dyspepsia, Reports heartburn, Denies diarrhea, Reports loose stools, Denies nausea, Denies odynophagia and Denies vomiting Reports no additional complaints Musc Reports no additional complaints Neuro Reports no additional complaints Psych Reports no additional complaints Endo Reports no additional complaints Physical Exam Vital Signs: Last Vital Signs Pulse 64 01/14/25 11:16 BP 152/82 H 01/14/25 11:16 Pulse Ox 97 01/14/25 11:16 Oxygen Delivery Method Room Air 01/14/25 11:16 BMI result Body Mass Index 33.5 Const General: healthy appearing, no acute distress and well developed Nutritional Appearance: well nourished and obese Orientation/consciousness: patient oriented x3 Resp Effort & Inspection: normal respiratory effort, able to speak in complete sentences, no tracheal deviation and symmetric chest movement Auscultation: clear to auscultation bilaterally Cardio Rate: regular rate GI Inspection: Yes normal to inspection, No distended and Yes obesity Palpation (GI): Soft to palpation, not firm, nontender and No hepatosplenomegaly present Auscultation: normal bowel sounds General: Yes no CVA tenderness Back/Spine/Pelvis Back: no CVA tenderness Skin General skin exam: elasticity normal, turgor normal and dry skin Neuro General: patient oriented x3 Psych Appearance: grossly normal Mental Status: mental status grossly normal Results Reviewed Results Reviewed: CT ENTEROGRAPHY FINDINGS: GASTROINTESTINAL FINDINGS: Stomach: Well-distended and normal in appearance. Small intestine: The duodenum is mildly contracted although grossly normal appearance. The remainder of the small bowel is mildly limited in evaluation due to areas of suboptimal negative contrast material distention. There is a long segment of terminal ileum which demonstrates irregular wall thickening and mucosal enhancement, leading into the ileocecal valve (series 7, images 17-38). Findings suggest active Crohn's disease. Large intestine: Well-distended and normal in appearance. No perirectal changes demonstrated. The appendix is not visualized. Additional findings: No abnormal enhancement of the vasa recta or significant mesenteric or retroperitoneal lymphadenopathy is seen. No abdominal abscess or fistulous tract demonstrated. OTHER: LUNG BASES: Aside from mild dependent atelectasis, lung bases are clear. LIVER, GALLBLADDER, AND BILIARY TREE: The liver is normal in size, shape, and attenuation. No focal hepatic lesion or biliary ductal dilatation is present. The gallbladder is unremarkable with no evidence of radiopaque gallstones, gallbladder wall thickening, or obvious pericholecystic inflammatory changes. PANCREAS: Unremarkable. SPLEEN: Unremarkable. ADRENAL GLANDS: Unremarkable. KIDNEYS AND URETERS: The kidneys are normal in size, shape, and attenuation. No hydronephrosis, hydroureter, or calculi seen. There is a 3.5 cm left renal lower pole simple cyst. There is a 1.6 cm right renal lower pole simple cyst. BLADDER: Completely collapsed. Allowing for poor distention, no abnormality. ABDOMINAL WALL: No significant hernia is appreciated. LYMPH NODES: None enlarged by size criteria. VASCULAR: Moderate to extensive atheromatous calcification of the aorta and iliac vessels. No aneurysm. PELVIC VISCERA: The prostate is unremarkable in appearance. OSSEOUS STRUCTURES: No suspicious lytic or blastic bone lesions. Mild degenerative changes in the hip joints and SI joints. Mild spinal degenerative changes. There has been a prior fusion of L5-S1 with titanium cages. CT/CT enterography IMPRESSION: 1. There is a moderate length segment of distal ileum which demonstrates irregular wall thickening, inflammation, and enhancement, in keeping with active Crohn's. There is a similar skip lesion as detailed in the report from 10/17/2024. 2. There is otherwise no additional abnormal stomach, duodenal, small bowel, or colonic abnormality. 3. There are small renal cysts. Kidneys otherwise normal. Laboratory Tests 10/23/24 11/20/24 11/21/24 08:30 15:29 09:30 Magnesium 1.5 L C-Reactive Protein 0.22 Lipase 18 Vitamin B12 292 25-OH Vitamin D Total 32 Folate 13.1 TSH 0.74 Stool Calprotectin 169 H 272 H Stool Lactoferrin 16.70 H Tiss Transglutamin IgA <1.0 Assessment & Plan Assessment & Plan (1) IBD (inflammatory bowel disease): Code(s): K52.9 - Noninfective gastroenteritis and colitis, unspecified Category: Medical (2) Crohn disease: Code(s): K50.90 - Crohn's disease, unspecified, without complications Category: Medical Qualifiers: Gastrointestinal tract location: small intestine Digestive disease complication type: without complication Qualified Code(s): K50.00 - Crohn's disease of small intestine without complications (3) Screen for colon cancer: Code(s): Z12.11 - Encounter for screening for malignant neoplasm of colon (4) Postprandial abdominal bloating: Code(s): R14.0 - Abdominal distension (gaseous) (5) Postprandial diarrhea: Code(s): K52.9 - Noninfective gastroenteritis and colitis, unspecified Plan Patient will continue mesalamine. Continue low FODMAP diet as best as he can. Patient will be scheduled for colonoscopy and upper endoscopy. He will continue taking the omeprazole daily. Avoid dietary triggers and late night snacking. Staying upright for minimum 3 hours after meals discussed with patient. Message sent to nurse navigator to call cardiology office for clearance. Patient might need to be seen as he was not seen since early of 2023. Patient reports that he did call the office and ask for appointment. What to expect before during and after procedure discussed with patient. Stressed the importance of clear liquid diet and good bowel prep day before procedure. I will see patient after the procedure, sooner on as needed basis. He is agreeable to this plan and verbalizes understanding of instructions. He was given the opportunity to ask questions and all questions answered. Thank you for allowing me to participate in his care Medications: New polyethylene glycol 3350 (Miralax) As directed by gastroenterology department at [facility] 238 grams PO ONCE 238 grams 0RF Z12.11 - Encounter for screening for malignant neoplasm of colon bisacodyl (Dulcolax (bisacodyl)) take 4 tabs at noon the day before your colonoscopy 20 mg (4 x 5 mg) PO ONCE 1 day 4 tabs 0RF Z12.11 - Encounter for screening for malignant neoplasm of colon Coding Level of Care Code Est Pt Level 4 (51897) Complex EM visit Add On G2211 Diagnoses IBD (inflammatory bowel disease) K52.9 Crohn's disease of small intestine without complication K50.00 Gastrointestinal tract location: small intestine Digestive disease complication type: without complication Screen for colon cancer Z12.11 Postprandial abdominal bloating R14.0 Postprandial diarrhea K52.9 Time Spent (min) 40 Comment 25 minutes spent with patient and additional 15 minutes spent reviewing his records
[2025-01-14 11:16] VITALS: BP 152/82; PULSE 64; O2SAT 97; BMI 33.5
== END 2025-01-14 12:36 | disposition home or self-care (01) ==
LOC: HO.HGI 11:13
PROVIDERS: PCP Physician Assistant; Visit Provider Nurse Practitioner Family
DX: K52.9 Noninfective gastroenteritis and colitis, unspecified (principal); K50.00 Crohn's disease of small intestine without complications; R14.0 Abdominal distension (gaseous); Z12.11 Encounter for screening for malignant neoplasm of colon
CPT/HCPCS: 99214; G2211

== ENCOUNTER → 2025-01-14 11:12 | Outpatient (BNVA) | payer MEDICARE, SELFPAY | PROVIDERS: PCP Physician Assistant; Visit Provider Nurse Practitioner Family | DX: Z12.11 Encounter for screening for malignant neoplasm of colon (principal); K52.9 Noninfective gastroenteritis and colitis, unspecified; K50.00 Crohn's disease of small intestine without complications; R14.0 Abdominal distension (gaseous) | CPT/HCPCS: 99212 ==

== ENCOUNTER 2025-01-28 09:26 | Outpatient (AMB) | payer MEDICARE, SELFPAY ==
--- NOTE | 2025-01-28 09:40 | MHC.PC.OV ---
Intake Visit Reasons: SWV [id number] Allergies No Known Allergies [No Known Allergies*] Allergy (Verified 01/14/25 11:16) Tobacco use date assessed: 11/26/24 Dental Screening Dental Screen Date: 11/26/24 [facility] Medical History Crohn disease COVID-19 Cervical radiculopathy Diabetic nephropathy Hypertension Diabetes mellitus Depression Type 2 diabetes mellitus without complications Coronary artery disease (CAD) excluded Failed back syndrome, lumbar Poor dental hygiene Surgical History History of colonoscopy History of tooth extraction History of cardiac catheterization History of heart artery stent History of lumbar fusion Family History Father No problems noted. 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 Fuad Buchanan, Justina Leyva, [employer] and colleagues, with an educational yolanda from [employer]. Physical exam (Primary Care) Tobacco/Smoking Status: Tobacco use Status Tobacco use date assessed 11/26/24 11/26/24 08:26 Patient Tobacco Use Status Former Tobacco user 11/26/24 08:26 e-Cigarette/Vaping Use Never Used 11/26/24 08:26 Thrive Assessment: Date of Thrive Assessment Date Thrive assessed 11/26/24 11/26/24 08:26 Coding
[2025-01-28 09:52] VITALS: BP 150/90; PULSE 80; TEMP 36.1; O2SAT 97; BMI 32.8
--- NOTE | 2025-01-28 09:52 | A.OFFVIS_ITS ---
Intake Vital Signs 01/28/25 09:52 01/28/25 10:01 Height 5 ft 4 in Weight 191 lb BMI 32.8 BP 150/90 H 140/88 H Blood Pressure Location Lt brachial Position Sitting Pulse 80 Pulse Source Pulse Oximeter Temp 97.0 F Temp Source Temporal Artery Scan Pulse Oximetry (%) 97 Oxygen Delivery Method Room Air Intake Visit Reasons: ALIS G0439 Dynamics Ax Solution Architect Required: No Accompanied by: Self / Same As Patient Allergies No Known Allergies [No Known Allergies*] Allergy (Verified 01/28/25 10:00) HPI [facility] G0439 HPI Details Patient is a 74 year-old male? here today for subacute Annual wellness Visit...? Patient has a past medical history significant for generalized anxiety disorder, coronary artery disease ,lumbar radiculopathy failed back syndrome, hypertension, type 2 diabetes. Today we discussed patient's end of life planning and [place] care. He does have a MOLST that is filled out in his appropriate. We also did review his comprehensive care plan which was scanned into patient's documents Concern--> reports decreased hearing in his left ear in his interested in getting hearing exam to evaluate for sensorineural hearing loss. Vaccines: Up-to-date with COVID vaccine, pneumonia vaccine and shingles vaccine, Declines Td Colon cancer screening: done in 2014 - normal- needs repeat in 2024 HPI Comments History of Present Illness Details reviewed past medical history- yes reviewed surgical / hospitalization history- yes reviewed current medications- yes reviewed family history- yes home safety throw rugs? grab bars? raised toilet seat? working smoke detectors? activities of daily living difficulty bathing or showering? difficulty dressing? difficulty using the toilet? difficulty getting in and out of bed? difficulty walking? receives help from other person's with any of the above tasks? instrumental activities of daily living uses telephone - gets to place out of walking distance- go shopping for groceries- repairs own meals- does own minor home maintenance- does own laundry- does own housework- manages own money- currently takes medication- end of life planning discussed advanced directives- yes advanced directives on file? discussed wishes expressed in advanced directives. fall risk have you had any falls with injuries in the past year? have you had 2 or more falls in the past year? fall risk assessment: [facility] Medical History Crohn disease COVID-19 Cervical radiculopathy Diabetic nephropathy Hypertension Diabetes mellitus Depression Type 2 diabetes mellitus without complications Coronary artery disease (CAD) excluded Failed back syndrome, lumbar Poor dental hygiene Surgical History History of colonoscopy History of tooth extraction History of cardiac catheterization History of heart artery stent History of lumbar fusion Family History Father No problems noted. 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) Vision needs: Yes (wears glasses.) Questionnaire Medicare Wellness Checkup What [age] What gender do you identify with?: male During the past 4 weeks, how much have you been bothered by emotional problems such as feeling anxious, depressed, irritable, sad or downhearted, and blue?: not at all During the past 4 weeks, has your physical & emotional health limited your social activities with family, friends, neighbors, or groups?: slightly During the past 4 weeks, how much bodily pain have you generally had?: mild pain During the past 4 weeks, was someone available to help you if you needed & wanted help?: yes, as much as I wanted During the past 4 weeks, what was the hardest physical activity you could do for at least 2 minutes?: very light Can you get to places out of walking distance without help? (For eg., can you travel alone on buses, taxis or drive your car?): No Can you go shopping for groceries or clothes without someone's help?: No Can you prepare your own meals?: No Can you do your housework without help?: No Because of any health problems, do you need the help of another person with your personal care needs such as eating, bathing, dressing or getting around the house?: Yes (spouse help most of the time) Can you handle your own money without help?: No (spouse) During the past 4 weeks, how would you rate your health in general?: poor During the past 4 weeks how have things been going for you?: good & bad parts about equal Are you having difficulties driving your car?: yes, often Do you always fasten your seat belt when you are in a car?: yes, usually During past 4 weeks, have you been bothered by the following: never: Trouble eating well?, Teeth or denture problems? and Problems using the telephone?, seldom: Tiredness or fatigue? and sometimes: Falling or dizzy when standing up and Sexual problems? Have you fallen 2 or more times in the past year?: No Are you afraid of falling?: No Are you a smoker?: no During the past 4 weeks, how many drinks of wine, beer, or other alcoholic beverages did you have?: no alcohol at all Do you exercise for about 20 minutes 3 or more times a week?: yes, some of the time Have you been given information to help with the following?: yes: Keeping track of your medications? and no: Hazards in your house that might hurt you? How often do you have trouble taking medicines the way you have been told to take them?: I always take medicine as prescribed How confident are you that you can control & manage most of your health problems?: somewhat confident What is your race?: White Mini Mental State Exam (MMSE) Orientation What is the (year) (season) (date) (day) (month)?: year Where are we (state) (county) (town or city) (hospital) (floor)?: town or city Score Score: 2 Activity of Daily Living Bathing - sponge bath, tub bath or shower: receives no assistance (gets in/out by self, if usual bathing means Dressing - getting clothes from closets & drawers, including inner/outer garments & fasteners.: gets clothes & gets completely dressed without help Toileting - going to the 'toilet room' for urine/bowel elimination & cleaning s elf/arranging clothes: goes to toilet room, cleans self, arranges clothes without help Transfer: moves in & out of bed and chair without help (may use support object) Continence: controls urination/bowel movements completely by self Feeding: feeds self without help Total Score: 0 Information obtained from: patient Using telephone: independent Traveling: independent Shopping: needs assistance Preparing meals: needs assistance Housework: dependent Taking medicine: independent Managing money: needs assistance PHQ-9 Over the last 2 weeks, how often have you been bothered by any of the following problems? 1. Little interest or pleasure in doing things: not at all 2. Feeling down, depressed, or hopeless: not at all 3. Trouble falling or staying asleep, or sleeping too much: not at all 4. Feeling tired or having little energy: not at all 5. Poor appetite or overeating: not at all 6. Feeling bad about yourself - or that you are a failure or have let yourself or your family down: not at all 7. Trouble concentrating on things, such as reading the newspaper or watching television: not at all 8. Moving or speaking so slowly that other people could have noticed. Or the opposite - being so fidgety or restless that you have been moving around a lot more than usual: not at all 9. Thoughts that you would be better off or of hurting yourself in some way: not at all Total score: 0 Depression Screening Interpretation: Negative Depression Screening Done: Yes 02637 - PHQ-9 Billing: Yes Source: Developed by Drs. Fuad Buchanan, Justina Leyva, [employer] and colleagues, with an educational yolanda from [employer]. Physical Exam Vital Signs: Last Vital Signs Temp 97.0 F 01/28/25 09:52 Pulse 80 01/28/25 09:52 BP 140/88 H 01/28/25 10:01 Pulse Ox 97 01/28/25 09:52 Oxygen Delivery Method Room Air 01/28/25 09:52 BMI result Body Mass Index 32.8 HEENT Other: hearing screening whisper test- failed on left side Eyes Other: vision screening- 20 20 OS OD OU Other: urinary incontinence? no Neuro Other: balance Romberg- normal tandem walk test- able walk-in turned test-able rise from sit to stand- within 2 seconds Assessment & Plan Assessment & Plan (1) Encounter for subsequent annual wellness visit (AWV) in Medicare patient: Code(s): Z00.00 - Encounter for general adult medical examination without abnormal findings Plan: As per HPI (2) SNHL (sensory-neural hearing loss), unilateral: Code(s): H90.5 - Unspecified sensorineural hearing loss Plan: Patient willing to get hearing exam Orders: Orders Comprehensive Morse. Panel Fast 01/28/25 E11.29 - Type 2 diabetes mellitus with other diabetic kidney complication, R80.9 - Proteinuria, unspecified Complete Blood Count no Diff 01/28/25 E11.29 - Type 2 diabetes mellitus with other diabetic kidney complication, R80.9 - Proteinuria, unspecified Microalbumin, Random (w Creat) 01/28/25 I10 - Essential (primary) hypertension Prostate Specific Antigen Scr 01/28/25 Z12.5 - Encounter for screening for malignant neoplasm of prostate Lipid Panel 01/28/25 Z03.89 - Encounter for observation for other suspected diseases and conditions ruled out Referrals Speech and Hearing Referral H90.5 - Unspecified sensorineural hearing loss Medications: Refilled cane As directed 1 ea 0RF M96.1 - Postlaminectomy syndrome, not elsewhere classified Quality Reporting (2019) Depression/Bipolar (159/160/161/177) PHQ-9: Total score: 0 Coding Level of Care Code Medicare Subsequent (G0439) Diagnoses Encounter for subsequent annual wellness visit (AWV) in Medicare patient Z00.00 SNHL (sensory-neural hearing loss), unilateral H90.5 CPT Codes Advance Care Planning - Time spent: 1-15 minutes, on File ([id number]) Additional Codes PHQ-9 - 44963 - PHQ-9 Billing: Yes ([id number]) Advance Care Planning Advance Care Planning discussion: Exists, not on file Date of discussion: 01/28/25 Forms completed: MOLST Time spent: 1-15 minutes, on File
--- OUTSIDE RECORDS SUMMARY | 2025-01-28 09:59 | XMS_ITS | Clinical Summary ---
[facility] Organization [facility] it Address [id number] [place] [id number] Care Team Providers Care Tug Boat Engineer Name Role Phone Tc Peoples Primary Care Provider Medications fludrocortisone (FLORINEF) 0.1 mg tablet TAKE 1 TABLET BY MOUTH EVERY DAY 90 tablet 01/17/2025 Active metoprolol tartrate (LOPRESSOR) 25 mg tablet TAKE 1 TABLET BY MOUTH TWICE A DAY 180 tablet 01/17/2025 Active Encounters Date Type Department Care Team Description 01/14/2025 Telephone [facility] - [address] [place] [address] Linh Orlando NP Appointment (Pre-op needed) from Last 3 Months Surgical History Surgery Date Site/Laterality Comments BACK SURGERY PROCEDURE: HISTORICAL BACK SURGERY; COMMENT: Multiple Lumbar Surgeries CARDIAC CATHETERIZATION PROCEDURE: HISTORICAL CARDIAC CATH; COMMENT: 2000, 2004, 2007 Medical History Medical History Date Comments Carotid artery occlusion 07/22/2013 DX:[place] artery occlusion Coronary arteriosclerosis in [place] artery 07/22/2013 DX:Coronary arteriosclerosis in [place] artery Cardiovascular system problem 07/22/2013 DX :Cardiovascular system problem Benign essential hypertension 07/22/2013 DX :Benign essential hypertension Pure hypercholesterolemia 07/22/2013 DX:Pur e hypercholesterolemia Palpitations DX:Palpitations Asymptomatic carotid artery stenosis without infarction DX:Asymptomatic carotid ciro ry stenosis without infarction Disorder of cardiovascular system DX:Disorder of cardiovascular system Diabetes mellitus, type II ( CMS/HCC V24, CMS/HCC V28) DX:Diabetes mellitus, type I I (HCC) Chronic back pain DX:Chronic angela k pain Hearing loss DX:Hearing loss Depression DX:Depression Erectile dysfunction DX:Erectile dysfunction Overweight DX:Overweight Family History Medical History Relation Name Comments Diabetes Mother Heart attack Mother Hypertension Mother Lung cancer Sister 1 Other: Kidney Failure Sister 2 Relation Name Status Comments Father (Age 95) Mother Sister 1 Sister 2 Social History Tobacco Use Types Packs/Day Years Used Date Smoking Tobacco: Former Cigarettes 0 09/04/1983 - 09/04/1998 Smokeless Tobacco: Never Alcohol Use Standard Drinks/Week Comments Not Currently 0 (1 standard drink = 0.6 oz pur e alcohol) Sex and Gender Information Value Date Recorded Sex Assigned at Not on file Legal Sex Male 10:56 AM EST Gender Identity Not on file Sexual Orientation Not on file Obstetrics History Last Filed Vital Signs Vital Sign Reading Time Taken Comments Blood Pressure 122/88 11/02/2023 8:41 AM EST Pulse 73 10/27/2023 10:44 AM EST Temperature - - Respiratory Rate - - Oxygen Saturation - - Inhaled Oxygen Concentration - - Weight 86.2 kg (190 lb) 11/02/2023 8:41 AM EST Height 162.6 cm (5' 4 ) 11/02/2023 8:41 AM EST Body Mass Index 32.61 11/02/2023 8:41 AM EST Plan of Treatment Upcoming Encounters Date Type Department Care Team (Late st Contact Info) Description 02/17/2025 12:40 PM EDT Consult [facility] [address] [place] [address] Linh Orlando NP [address] [place] [address] [address] [place] [address] Health Maintenance Due Date Last Done Comments DTaP,Tdap,and Td Vaccines (1 - Tdap) 02/22/1971 Pneumococcal Vaccine: 50+ Ye ars (1 of 1 - PCV) 02/22/2002 Zoster Vaccines (1 of 2) 02/22/2002 Abdominal Aortic Aneurysm (A AA) Screen 08/02/2022 Cholesterol Screening (Lipid Panel) 08/02/2022 Colorectal Cancer Screening: Colonoscopy 08/02/2022 Depression Screening 08/02/2022 Falls Risk Assessment 08/02/2022 Hepatitis C Screening 08/02/2022 Medicare Annual Wellness Visit 08/02/2022 Social Influencers of Health Screening 08/02/2022 Hypertension/CHF/CAD Annual BMP Blood Test 08/14/2022 COVID-19 Vaccine ( - 2023-2 5 season) 2024 Influenza Vaccine (Season Ended) 2025 RSV Immunization Adult Patie nts (1 - 1-dose 75+ series) 02/22/2027 HIB Vaccines Aged Out No longer eligi ble based on patient's age to complete this topic HPV Vaccines Aged Out No longer eligi ble based on patient's age to complete this topic Hepatitis A Vaccines Aged Out No long er eligible based on patient's age to complete this topic Hepatitis B Vaccines Aged Out No long er eligible based on patient's age to complete this topic IPV Vaccines Aged Out No longer eligi ble based on patient's age to complete this topic MMR Vaccines Aged Out No longer eligi ble based on patient's age to complete this topic Meningococcal ACWY Vaccine Aged Out N o longer eligible based on patient's age to complete this topic Meningococcal B Vaccine Aged Out No l onger eligible based on patient's age to complete this topic RSV Immunization Patients Un abiodun 20 months Aged Out No longer eligible b ased on patient's age to complete this topic Varicella Vaccines Aged Out No longer eligible based on patient's age to complete this topic Insurance [employer] MEDICARE ADVANTAGE Care Teams Tug Boat Engineer Relationship Specialty Start Date End Date Tc Peoples PA PCP - General Internal Medicine 04/12/22
[2025-01-28 10:01] VITALS: BP 140/88
== END 2025-01-28 10:25 | disposition home or self-care (01) ==
LOC: HO.HMCH 09:26
PROVIDERS: PCP Physician Assistant; Visit Provider Physician Assistant
DX: Z00.00 Encounter for general adult medical examination without abnormal findings (principal); H90.5 Unspecified sensorineural hearing loss

== ENCOUNTER → 2025-01-28 09:26 | Outpatient (BNVA) | payer MEDICARE, SELFPAY | PROVIDERS: PCP Physician Assistant; Visit Provider Physician Assistant | DX: Z00.00 Encounter for general adult medical examination without abnormal findings (principal); F41.1 Generalized anxiety disorder; I25.10 Atherosclerotic heart disease of native coronary artery without angina pectoris; M54.16 Radiculopathy, lumbar region; I10 Essential (primary) hypertension; E11.29 Type 2 diabetes mellitus with other diabetic kidney complication; R80.9 Proteinuria, unspecified; H90.5 Unspecified sensorineural hearing loss | CPT/HCPCS: 96127 ==

== ENCOUNTER 2025-02-04 09:38 | Outpatient (REF) | payer MEDICARE, SELFPAY ==
--- OUTSIDE RECORDS SUMMARY | 2025-02-04 10:45 | XMS_ITS | Clinical Summary ---
Author Organization [facility] it Address [address] [place] [id number] Care Team Providers Care Electronic Gaming Device Supervisor Name Role Phone Tc Peoples Primary Care Provider Medications fludrocortisone (FLORINEF) 0.1 mg tablet TAKE 1 TABLET BY MOUTH EVERY DAY 90 tablet 01/17/2025 Active metoprolol tartrate (LOPRESSOR) 25 mg tablet TAKE 1 TABLET BY MOUTH TWICE A DAY 180 tablet 01/17/2025 Active Encounters Date Type Department Care Team Description 01/14/2025 Telephone [facility] - [address] [place] [address] Linh Orlando NP Appointment (Pre-op needed) from Last 3 Months Surgical History Surgery Date Site/Laterality Comments BACK SURGERY PROCEDURE: HISTORICAL BACK SURGERY; COMMENT: Multiple Lumbar Surgeries CARDIAC CATHETERIZATION PROCEDURE: HISTORICAL CARDIAC CATH; COMMENT: 2000, 2004, 2007 Medical History Medical History Date Comments Carotid artery occlusion 07/22/2013 DX:[place] tid artery occlusion Coronary arteriosclerosis in [place] artery 07/22/2013 DX:Coronary arteriosclerosis in [place] artery Cardiovascular system problem 07/22/2013 DX :Cardiovascular [...] Info) Description 02/17/2025 12:40 PM EDT Consult [facility] [address] [place] [address] Linh Orlando NP [address] [place] [address] [address] [place] [address] Health Maintenance Due Date Last Done Comments [...] topic Insurance [employer] MEDICARE ADVANTAGE Care Teams Electronic Gaming Device Supervisor Relationship Specialty Start Date End Date Tc Peoples PA PCP - General Internal Medicine 04/12/22
[2025-02-04 11:19] LABS: Hematocrit 41.4 % (42.0-52.0); Hemoglobin 13.9 g/dl (14.0-18.0); Mean Corpuscular HGB Conc 33.6 g/dl (31.0-36.0); Mean Corpuscular Volume 95.4 fL (80.0-98.0); Mean Platelet Volume 10.1 fL (9.4-12.4); Platelet Count 200 X10*3/uL (160-400); Red Blood Count 4.34 X10*6/uL (4.60-5.80); Red Cell Distribution Width 13.8 % (11.0-16.0); White Blood Count 6.8 X10*3/uL (4.8-10.8)
[2025-02-04 11:59] LABS: Alanine Aminotransferase 20 U/L (0-40); Albumin Level 3.8 g/dL (3.5-5.0); Alkaline Phosphatase 108 U/L (39-117); Anion Gap 12 (12-20); Aspartate Amino Transferase 23 U/L (5-37); Bilirubin Total 0.6 mg/dL (0.0-1.0); Blood Urea Nitrogen 16 mg/dL (9-16); Calcium 8.8 mg/dL (8.4-10.2); Carbon Dioxide 25 mmol/L (22-29); Chloride 111 mmol/L (96-108); Cholesterol 130 mg/dL (<200); Estimated Glomerular Filt Rate > 60; Glucose Fasting 92 mg/dL (60-99); HDL Cholesterol 31 mg/dL (>40); LDL Cholesterol Calculated 81 mg/dL (<100); Sodium 144 mmol/L (135-145); Total Protein 6.9 g/dL (6.5-8.0); Triglycerides 92 mg/dL (<150)
[2025-02-04 12:04] LABS: Prostate Specific Antigen Scr 0.19 ng/mL (<0.05-4.0)
[2025-02-04 12:28] LABS: Creatinine Urine 113.78 mg/dL; Microalbum/Creatinine Ratio Ur 34.2 ug/mg cr (<30)
== END 2025-02-04 09:39 | disposition home or self-care (01) ==
LOC: HO.LAB 09:38
PROVIDERS: PCP Physician Assistant; Visit Provider Physician Assistant
DX: I10 Essential (primary) hypertension (principal); Z03.89 Encounter for observation for other suspected diseases and conditions ruled out; Z12.5 Encounter for screening for malignant neoplasm of prostate; R80.9 Proteinuria, unspecified; E11.29 Type 2 diabetes mellitus with other diabetic kidney complication
CPT/HCPCS: 36415; 80053; 80061; 82043; 82570; 84153; 85027

== ENCOUNTER 2025-05-27 09:10 | Outpatient (AMB) | payer MEDICARE, SELFPAY ==
--- NOTE | 2025-05-27 09:29 | A.OFFPC_ITS ---
Vital Signs 05/27/25 09:32 Height 5 ft 4 in Weight 185 lb BMI 31.8 BP 140/80 H Blood Pressure Location Lt brachial Position Sitting Pulse 74 Pulse Source Pulse Oximeter Temp 97.3 F Temp Source Temporal Artery Scan Pulse Oximetry (%) 97 Oxygen Delivery Method Room Air Intake Visit Reasons: f/u - Lumbar spine disease -[facility] Intake Note: Patient is here to follow up on Lumbar spine disease. Javascript Front End Developer Required: No Ed Case Manager: Not Required per policy Accompanied by: Self / Same As Patient Allergies No Known Allergies (No Known Allergies*) Allergy (Verified 05/27/25 09:54) Medication List - Last Reconciled 05/27/25 by Tc Peoples PA-C amlodipine 10 mg PO DAILY aspirin 81 mg PO DAILY 90 days atorvastatin 80 mg PO DAILY betamethasone dipropionate 0.05% 1 appl topical DAILY PRN 30 days bisacodyl (Dulcolax (bisacodyl)) 20 mg (4 x 5 mg) PO ONCE 1 day blood sugar diagnostic ([employer] Verio test strips) Testing twice a day blood-glucose meter ([employer] Verio Flex Meter) Testing twice a day budesonide DR-ER 9 mg (3 x 3 mg) PO DAILY 6 weeks buprenorphine HCl (Belbuca) 450 mcg buccal Q12H 30 days cane As directed chlorhexidine gluconate 0.12% 15 mL PO TID clonazepam 1 mg PO DAILY 30 days clopidogrel 75 mg PO DAILY cyclobenzaprine 10 mg PO Q8H 30 days fludrocortisone 0.1 mg PO DAILY fluoxetine 80 mg (4 x 20 mg) PO DAILY lancets ([employer] Delica Plus Lancet) Testing twice a day lisinopril 5 mg PO DAILY magnesium oxide 400 mg PO DAILY mesalamine 2.4 grams (2 x 1.2 gram) PO DAILY metformin 1,000 mg PO BID metoprolol tartrate 25 mg PO BID miscellaneous medical supply miscellaneous; TENS Unit and pads ofloxacin 0.3% 1 drp ophthalmic (eye) BID 30 days omeprazole 40 mg PO DAILY 90 days polyethylene glycol 3350 (Miralax) 238 grams PO ONCE prednisolone acetate 1% 1 drp ophthalmic (eye) QID simethicone (Gas-X Extra Strength) 125 mg PO TID PRN 30 days Tobacco use date assessed: 05/27/25 Fall risk assessment: No Falls in past year Last assessed Fall Risk: 05/27/25 Dental Screening Dental Screen Date: 11/26/24 HPI f/u - Lumbar spine disease -[facility] HPI Details Patient is a 75-year-old male here today for a [facility] visit.?..? 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 He has seen a neurosurgeon and Dr. Get montaño at [facility].? He was seeing pain management center at [facility] on [facility] and has gotten cortisone injection though feels it has not helped reduce his back pain. For now he reports his pain is stable not interested in any further surgery at this time he is considering medical marijuana to help try to get off of prescription medications . ? He continues to ambulate with a walker / cane to assist due to his continued lower extremity weakness and lumbar spine pain.? He does use a portable TENS unit on a daily basis for his lumbar spine. Current? pain medicine regime-->? Belbuca 450 mcg twice a day along?with? clonazepam 1 mg daily . He reports he gets decent pain relief with the use of these medications and continue him on these for now [facility] Medical History Crohn disease COVID-19 Cervical radiculopathy Diabetic nephropathy Hypertension Diabetes mellitus Depression Type 2 diabetes mellitus without complications Coronary artery disease (CAD) excluded Failed back syndrome, lumbar Poor dental hygiene Surgical History History of colonoscopy History of tooth extraction History of cardiac catheterization History of heart artery stent History of lumbar fusion Family History Father No problems noted. 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 Fuad Buchanan, Justina Leyva, [employer] and colleagues, with an educational yolanda from [employer]. Review of Systems Const Denies headache(s) Eyes Denies loss of vision ENT Denies vertigo, Denies dizziness, Denies headache(s) and Denies sore throat Card Denies chest pain, Denies leg edema and Denies lightheadedness Resp Denies cough, Denies hemoptysis and Denies wheezing GI Denies abdominal pain, Denies melena, Denies constipation, Denies diarrhea and Denies vomiting Denies dysuria, Denies urinary frequency and Denies urinary urgency Musc Reports back pain, Denies arthralgias, Denies joint swelling, Denies numbness and Denies tingling Neuro Denies Abnormal speech present, Denies behavioral changes, Denies vertigo, Denies dizziness, Denies headache(s), Denies loss of vision, Denies memory loss, Denies numbness and Denies tingling Psych Denies anxiety, Denies behavioral changes, Denies depression, Denies memory loss and Denies panic attacks Roger/Lymph Denies easy bleeding and Denies easy bruising Aller/Immun Denies wheezing Physical exam (Primary Care) Vital Signs: Last Vital Signs Temp 97.3 F 05/27/25 09:32 Pulse 74 05/27/25 09:32 BP 140/80 H 05/27/25 09:32 Pulse Ox 97 05/27/25 09:32 Oxygen Delivery Method Room Air 05/27/25 09:32 BMI result Body Mass Index 31.8 Tobacco/Smoking Status: Tobacco use Status Tobacco use date assessed 05/27/25 05/27/25 09:36 Patient Tobacco Use Status Former Tobacco user 05/27/25 09:29 e-Cigarette/Vaping Use Never Used 05/27/25 09:29 Thrive Assessment: Date of Thrive Assessment Date Thrive assessed 11/26/24 05/27/25 09:29 Const General: healthy appearing, no acute distress, alert and awake Nutritional Appearance: well nourished Orientation/consciousness: oriented to person, oriented to place and oriented to time HENMT Ears: TM's normal bilaterally General nose exam: Normal nasal mucous membranes and turbinates present Eyes Conjunctivae: conjunctivae normal Sclerae: sclerae normal Pupils: Equal, round and reactive pupils present Neck Neck: Yes no lymphadenopathy and Yes no JVD Thyroid: Thyroid normal Carotids: no bruits Resp Effort & Inspection: normal respiratory effort and not tachypneic Auscultation: no crackles, no rales, no rhonchi and no wheezes Cardio Rate: regular rate Rhythm: regular rhythm Heart sounds: no murmurs and normal S1 and S2 GI Palpation (GI): Soft to palpation, nontender, no hepatomegaly and no splenomegaly Auscultation: normal bowel sounds Back/Spine/Pelvis Other: AMBULATING WITH AN ANTALGIC GAIT, AMBULATING WITH A CANE FOR ASSISTANCE. LIMITED RANGE OF MOTION OF LUMBAR SPINE DUE TO PAIN AND STIFFNESS Skin General skin exam: no rashes or lesions noted and dry skin Neuro General: oriented to person, oriented to place and oriented to time Cranial nerves: Yes Equal, round and reactive pupils present Speech: No Abnormal speech present Gait exam (Neuro): Normal gait present Motor exam (neuro): no tremor noted Extrem Right upper extremity: full ROM Left upper extremity: full ROM Right lower extremity: full ROM; no edema Left lower extremity: full ROM; no edema Psych Mental Status: mental status grossly normal Speech and movement: Normal speech and movement present Affect: normal affect Attitude: cooperative Thought process: Normal thought process present Coding Level of Care Code Est Pt Level 3 (00841) Diagnoses Lumbar disc herniation with myelopathy M51.06 Assessment & Plan Assessment & Plan (1) Lumbar disc herniation with myelopathy: Code(s): 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, lumbar region Category: Medical Plan: Has a history of lumbar spine fusion surgery.. Patient continues with chronic lower lumbar spine pain secondary to her worker's comp incident many years ago. Continues to do fairly well with current medication Belbuca, cyclobenzaprine, clonazepam. He does continue to have breakthrough pain and weakness in his lower extremity, continues to wear TENS unit over his lower lumbar spine. Orders: Orders Hemoglobin A1c Today E11.29 - Type 2 diabetes mellitus with other diabetic kidney complication, R80.9 - Proteinuria, unspecified Comprehensive [place]. Panel Fast Today E11.29 - Type 2 diabetes mellitus with other diabetic kidney complication, R80.9 - Proteinuria, unspecified Complete Blood Count no Diff Today E11.29 - Type 2 diabetes mellitus with other diabetic kidney complication, R80.9 - Proteinuria, unspecified Lipid Panel Today Z03.89 - Encounter for observation for other suspected dis eases and conditions ruled out
[2025-05-27 09:32] VITALS: BP 140/80; PULSE 74; TEMP 36.3; O2SAT 97; BMI 31.8
--- OUTSIDE RECORDS SUMMARY | 2025-05-27 10:41 | XMS_ITS ---
Author Name [facility] Organization Unknown Care Team Organization Name Specialty Phone Email Start Date End Da te [facility] Termed, PROVIDER Primary Care 11/09/202204/04 [facility] NULL Primary Care 07/12/2022 04/22/2024
--- OUTSIDE RECORDS SUMMARY | 2025-05-27 10:42 | XMS_ITS | Clinical Summary ---
Author Organization [facility] Address [address] [place] [address] Phone Care Team Providers Care Field Education Director Name Role Phone Tc Peoples Primary Care Provider Allergies No known active allergies Medications fludrocortisone (FLORINEF) 0.1 mg tablet TAKE 1 TABLET BY MOUTH EVERY DAY 90 tablet 5 Active metoprolol tartrate (LOPRESSOR) 25 mg tablet TAKE 1 TABLET BY MOUTH TWICE A DAY 180 tablet 5 Active atorvastatin (LIPITOR) 80 mg tablet Take 1 tablet (80 mg total) by mouth at bedtime. Active clopidogreL (PLAVIX) 75 mg tablet Take 1 tablet (75 mg total) by mouth 1 (one) time each day. Active amLODIPine (NORVASC) 10 mg tablet Take 1 tablet (10 mg total) by mouth 1 (one) time each day. Active FLUoxetine (PROzac) 20 mg capsule Take 4 capsules (80 mg total) by mouth 1 (one) time each day. Active buprenorphine HCL (Belbuca) [address] into mouth between cheek and gum. Every 12 hours Active clonazePAM (KlonoPIN) 1 mg tablet Take 1 tablet (1 mg total) by mouth 1 (one) time each day. Max Daily Amount: 1 mg Active cyclobenzaprine (FLEXERIL) 10 mg tablet Take 1 tablet (10 mg total) by mouth 3 (three) times a day if needed for muscle spasms. Active metFORMIN (GLUCOPHAGE) 1,000 mg tablet Take 1 tablet (1,000 mg total) by mouth 2 (two) times a day with meals. Active magnesium oxide (MAG-OX) 400 mg magnesium tablet Take 1 tablet (400 mg total) by mouth 1 (one) time each day. Active budesonide (ENTOCORT EC) 3 mg 24 hr capsule Take 3 capsules (9 mg total) by mouth 1 (one) time each day in the morning. Active aspirin 81 mg EC tablet Take 1 tablet (81 mg total) by mouth 1 (one) time each day. Active lisinopriL (PRINIVIL,ZESTR IL) 5 mg tablet Take 1 tablet (5 mg total) by mouth 1 (one) time each day. Active omeprazole (PriLOSEC) [address] capsule Take 1 capsule (40 mg total) by mouth 1 (one) time each day. Do not crush or chew. Active polyethylene glycol 3350 (MIRALAX ORAL) Take by mouth. As directed by Gastro Active simethicone (MYLICON) 125 mg chewable tablet Chew 1 tablet (125 mg total) 3 (three) times a day. Active betamethasone, augmented, (DIPROLENE-AF) 0.05 % cream Apply topically 1 (one) time each day. Active chlorhexidine (PERIDEX) 0.12 % solution Use 15 mL in the mouth or throat if needed for wound care. Active Active Problems Problem Noted Date Diagnosed Date Coronary arteriosclerosis 02/17/2025 Assessment & Plan (02/17/2025 2:11 PM EDT): Patient has history of coronary artery disease with history of MD in 2004. Patient had drug-eluting stent placed to the LAD in 2021. He has a known complete total occlusion of the RCA which is chronic however collateral circulation was present from left to right on last coronary angiogram. He currently feels well and denies any exertional anginal symptoms. He maintains a high level of activity and exercises regularly. He continues on aspirin and Plavix likely secondary to chronic total occlusion of the RCA. He denies any bleeding or excessive bruising. Patient also continues on beta-asad and statin. I have reviewed with the patient the importance of a heart healthy lifestyle which includes eating a low-fat low-salt diet, getting regular exercise, maintaining a healthy weight, not smoking, and following up with routine medical care. Primary hypertension 02/17/2025 Assessment & Plan (02/17/2025 2:11 PM EDT): Blood pressure was initially elevated however on recheck it was reasonable at 130/80. He monitors blood pressure at home and blood pressure readings are stable and reasonable. Hypercholesteremia 02/17/2025 Assessment & Plan (02/17/2025 2:11 PM EDT): Patient's goal DL cholesterol is less than 70. He continues on statin therapy. Patient advised to continue with atorvastatin 80 mg once a day and low-fat diet to decrease his risk factors. Preoperative cardiovascular examination 02/18/20 25 Assessment & Plan (02/17/2025 2:11 PM EDT): Patient presents today for preoperative risk assessment prior to undergoing low works procedure with colonoscopy and endoscopy. Patient is on dual antiplatelet therapy with aspirin and Plavix which is likely secondary to chronic total occlusion of his RCA. If necessary he can stop his antiplatelets for 5 to 7 days prior to colonoscopy/endoscopy. Otherwise he does not require any other cardiac testing since he is asymptomatic with high workload at home. Surgical History Surgery Date Site/Laterality Comments BACK SURGERY PROCEDURE: HISTORICAL BACK SURGERY; COMMENT: Multiple Lumbar Surgeries CARDIAC CATHETERIZATION PROCEDURE: HISTORICAL CARDIAC CATH; COMMENT: 2000, 2004, 2007 Medical History Medical History Date Comments Carotid artery occlusion 07/22/2013 DX:[place] tid artery occlusion Coronary arteriosclerosis in [place] artery 07/22/2013 DX:Coronary arteriosclerosis in [place] artery Cardiovascular system problem 07/22/2013 DX :Cardiovascular system problem Benign essential hypertension 07/22/2013 DX :Benign essential hypertension Pure hypercholesterolemia 07/22/2013 DX:Pur e hypercholesterolemia Palpitations DX:Palpitations Asymptomatic carotid artery stenosis without infarction DX:Asymptomatic carotid ciro ry stenosis without infarction Disorder of cardiovascular system DX:Disorder of cardiovascular system Diabetes mellitus, type II ( [facility] V24, [facility] V28) DX:Diabetes mellitus, type I I ([facility]) Chronic back pain DX:Chronic angela k pain [...] Sign Reading Time Taken Comments Blood Pressure 130/80 02/17/2025 1:11 PM EDT Pulse 61 02/17/2025 12:37 PM EDT Temperature - - Respiratory Rate - - Oxygen Saturation 94% 02/17/2025 12:37 PM EDT Inhaled Oxygen Concentration - - Weight 86.2 kg (190 lb) 02/17/2025 12:37 PM EDT Height 162.6 cm (5' 4 ) 02/17/2025 12:37 PM EDT Body Mass Index 32.61 02/17/2025 12:37 PM EDT Plan of Treatment Health Maintenance Due Date Last Done Comments DTaP,Tdap,and Td Vaccines (1 - Tdap) 02/22/1971 Zoster Vaccines (1 of 2) 02/22/2002 Pneumococcal Vaccine: 50+ Years (2 of 2 - PCV) 11/14/2020 11/15/2019 Abdominal Aortic Aneurysm (AAA) Screen 08/02/2022 Cholesterol Screening (Lipid Panel) 08/02/2022 Colorectal Cancer Screening: Colonoscopy 08/02/2022 Falls Risk Assessment 08/02/2022 Hepatitis C Screening 08/02/2022 Medicare Annual Wellness Visit 08/02/2022 Social Influencers of Health Screening 08/02/2022 Hypertension/CHF/CAD Annual BMP Blood Test 08/14/2022 Depression Screening 09/04/2024 COVID-19 Vaccine (3 - 2024-2 6 season) 2025 04/28/2021, 04/07/2021 Influenza Vaccine (#1) 2025 RSV Immunization Adult Patients (1 - 1-dose 75+ series) 02/22/2027 HIB [...] to complete this topic RSV Immunization Patients Under 20 months Aged Out No longer eligible b ased on patient's age to complete this topic Varicella Vaccines Aged Out No longer eligible based on patient's age to complete this topic Insurance [employer] MEDICARE ADVANTAGE Care Teams Field Education Director Relationship Specialty Start Date End Date Tc Peoples PA [address] [place] [phone] PCP - General Physician Digital Asset Specialist 02/17/25
== END 2025-05-27 10:09 | disposition home or self-care (01) ==
LOC: HO.HMCH 09:11
PROVIDERS: PCP Physician Assistant; Visit Provider Physician Assistant
DX: M51.06 Intervertebral disc disorders with myelopathy, lumbar region (principal)

== ENCOUNTER → 2025-05-27 09:10 | Outpatient (BNVA) | payer MEDICARE, SELFPAY | PROVIDERS: PCP Physician Assistant; Visit Provider Physician Assistant | DX: M51.06 Intervertebral disc disorders with myelopathy, lumbar region (principal); E11.29 Type 2 diabetes mellitus with other diabetic kidney complication; R80.9 Proteinuria, unspecified | CPT/HCPCS: 99212 ==

== ENCOUNTER 2025-07-09 08:14 | Day surgery (SDC) | payer MEDICARE, SELFPAY ==
--- NOTE | 2025-07-07 13:37 | HO.ANESPROP2 ---
Documented by User: Christina Manrique NP 07/07/25 13:53 HPI - Anesthesia Eval Consult details Narrative: 75 yr old male for Upper Endoscopy and Colonoscopy Follows PVC for CAD/SC in 2004: had preop clearance visit 03/2025 for EGD/colo, okay to proceed. -Had drug eluting stent of LAD in 2021 -Known complete total occlusion of the RCA which is chronic: on plavix, ASA. -Had negative stress echo in 2023. On buprenorphine & clonazepam dailyfor chronic back pain PMFSH Active Problems Active Problems: All Active Problems SNHL (sensory-neural hearing loss), unilateral (Acute) Crohn disease (Acute) IBD (inflammatory bowel disease) (Acute) Chronic abdominal pain (Acute) GERD (gastroesophageal reflux disease) (Acute) RUQ abdominal pain (Acute) Encounter for subsequent annual wellness visit (AWV) in Medicare patient (Acute) Obese (Acute) Dermatitis (Acute) Adult general medical exam (Acute) Screening for prostate cancer (Acute) Conjunctivitis (Acute) Medicare annual wellness visit, initial (Acute) Coronary artery disease (CAD) excluded (Acute) Lumbar disc herniation with myelopathy (Acute) Lumbar radiculopathy (Acute) [facility] (generalized anxiety disorder) (Acute) Cervical radiculopathy (Acute) Hypertension (Acute) Diabetes mellitus (Acute) Failed back syndrome, lumbar (Acute) History of lumbar fusion (Acute) Past Medical History Medical History GERD (gastroesophageal reflux disease) Crohn disease Cervical radiculopathy Diabetic nephropathy Hypertension Diabetes mellitus Depression Type 2 diabetes mellitus without complications Coronary artery disease (CAD) excluded Failed back syndrome, lumbar Poor dental hygiene Family History Family History Father No problems noted. Mother Past heart attack Diabetes Hypertension Sister Lung cancer Sister Chronic kidney failure Brother Myocardial infarction Sister Myocardial infarction Surgical History Surgical History History of colonoscopy History of tooth extraction History of cardiac catheterization History of heart artery stent History of lumbar fusion Social History Social History Housing: House Are you a primary care asst to a significant other at home: No Do you presently have visiting nurse or other home services: No Alcohol intake: never Patient Tobacco Use Status: Former Tobacco user e-Cigarette/Vaping Use: Never Used Second Hand Smoke Exposure: Yes Have you been hit, kicked, punched, or otherwise hurt by someone within the past year? If so, by whom?: No Are you DNR?: No Advance Directives: No Advance Directives Information Provided: Yes service: Yes (in [employer]) Current occupational status: disabled Current occupation: disabled Cognitive needs: Yes (has a cane and has a walker at home) Hearing needs: Yes (hearing loss in left ear) Vision needs: Yes (wears glasses.) Meds Allergies Allergy/AdvReac Type Severity Reaction Status Date / Time No Known Allergies (No Known Allergy Verified 07/09/25 09:41 Allergies*) Home Medications ?Medication ?Instructions ?Recorded ?Confirmed ?Last Taken ?Type fludrocortisone 0.1 mg tablet 0.1 mg PO DAILY 06/09/22 07/07/25 Unknown History metoprolol tartrate 25 mg tablet 25 mg PO BID 06/09/22 07/07/25 Unknown History prednisolone acetate 1 % eye 1 drp ophthalmic (eye) QID 09/08/22 07/07/25 Unknown History drops,suspension buprenorphine HCl 450 mcg buccal 450 mcg buccal Q12H pain control 07/07/25 07/07/25 Unknown History film (Belbuca) Exam Pertinent Lab Results Pertinent Lab Results: Laboratory Tests 02/04/25 09:50 WBC 6.8 RBC 4.34 L Hgb 13.9 L Hct 41.4 L Plt Count 200 Sodium 144 Potassium 4.0 Chloride 111 H Carbon Dioxide 25 BUN 16 Creatinine 0.91 Narrative Narrative: Stress ECHO 2023 Constrast used to enhance endocardial thompson. No evidence of ischemia or infarct by echo at this adequate level of stress. No significant chest pain, ECG changes or sustained arrhythmias. EKG 02/2025 Sinus rhythm with 1st degree AV block Possible inferior infarct age undetermined rate 62 Documented by User: Keerthi Cedeño MD 07/09/25 09:41 [facility] Past Medical History Medical History GERD (gastroesophageal reflux disease) Crohn disease Cervical radiculopathy Diabetic nephropathy Hypertension Diabetes mellitus Depression Type 2 diabetes mellitus without complications Coronary artery disease (CAD) excluded Failed back syndrome, lumbar Poor dental hygiene Family History Family History Father No problems noted. Mother Past heart attack Diabetes Hypertension Sister Lung cancer Sister Chronic kidney failure Brother Myocardial infarction Sister Myocardial infarction Surgical History Surgical History History of colonoscopy History of tooth extraction History of cardiac catheterization History of heart artery stent History of lumbar fusion History of Problems with Anesthesia: No Social History Social History Housing: House Are you a primary care asst to a significant other at home: No Do you presently have visiting nurse or other home services: No Alcohol intake: never Patient Tobacco Use Status: Former Tobacco user e-Cigarette/Vaping Use: Never Used Second Hand Smoke Exposure: Yes Have you been hit, kicked, punched, or otherwise hurt by someone within the past year? If so, by whom?: No Are you DNR?: No Advance Directives: No Advance Directives Information Provided: Yes service: Yes (in [employer]) Current occupational status: disabled Current occupation: disabled Cognitive needs: Yes (has a cane and has a walker at home) Hearing needs: Yes (hearing loss in left ear) Vision needs: Yes (wears glasses.) Meds Allergies Allergy/AdvReac Type Severity Reaction Status Date / Time No Known Allergies (No Known Allergy Verified 07/09/25 09:41 Allergies*) Home Medications ?Medication ?Instructions ?Recorded ?Confirmed ?Last Taken ?Type fludrocortisone 0.1 mg tablet 0.1 mg PO DAILY 06/09/22 07/07/25 Unknown History metoprolol tartrate 25 mg tablet 25 mg PO BID 06/09/22 07/07/25 Unknown History prednisolone acetate 1 % eye 1 drp ophthalmic (eye) QID 09/08/22 07/07/25 Unknown History drops,suspension buprenorphine HCl 450 mcg buccal 450 mcg buccal Q12H pain control 07/07/25 07/07/25 Unknown History film (Belbuca) Exam Airway Mallampati Class: III TM Dist: >3cm Neck ROM: Limited Denture: Upper and Lower Loose/Missing/Broken Teeth: Yes, Upper and Lower Heart: RRR Lungs: CTA Assessment and Plan Assessment Anesthesia Assessment: Anesthesia Plan Discussed and Chart Reviewed Final Anesthetic Review History of Problems with Anesthesia: No NPO: Yes ASA Class: III Final Preanesthetic Review: Meds/Allgs Chart Reviewed, Consent Obtained/Reviewed and Anes Risks/Benef Reviewed Patient Risk: Intermediate Procedure Risk: Intermediate Anesthetic Plan Anesthetic Plan: MAC: Disposition: Standard PACU
[2025-07-07 13:57] VITALS: BMI 33.5
--- NOTE | 2025-07-09 | ECG_ITS ---
Test Reason : PREOP Blood Pressure : */* mmHG Vent. Rate : 72 BPM Atrial Rate : 72 BPM P-R Int : 238 ms QRS Dur : 92 ms QT Int : 388 ms P-R-T Axes : 32 59 7 degrees QTcB Int : 424 ms Sinus rhythm with sinus arrhythmia with 1st degree A-V block Possible Inferior infarct , age undetermined Abnormal ECG When compared with ECG of 11-Aug-2020 18:49, MS interval has increased T wave amplitude has increased in Anterior leads Referred By: Keerthi Cedeño Electronically Signed By: Russ Traore
[2025-07-09] MEDS: Lactated Ringers 1,000 ML 100 ML IVCONT (09:15)
[2025-07-09 09:16] LABS: Glucose, Whole Blood 107 mg/dL (60-115)
[2025-07-09 09:18] VITALS: BMI 30.7
[2025-07-09 09:44] VITALS: BP 148/94; PULSE 87; RESP 18; TEMP 36.6; O2SAT 99
--- NOTE | 2025-07-09 10:06 | MHC.SHP ---
Pre-Procedural Eval Section A - 24 Hr Update-Section A only Date of Service: 07/09/25 Section B - Complete if H&P > 30 days Chief Complaint: GERD,SCREENING Relevant Family History (Specify if Yes): No Relevant Social History: None Present Medications: see Short Stay Collaborative assessment Medical History: Significant History (Crohn disease COVID-19 Cervical radiculopathy Diabetic nephropathy Hypertension Diabetes mellitus Depression Type 2 diabetes mellitus without complications Coronary artery disease (CAD) excluded Failed back syndrome, lumbar Poor dental hygiene) History of Previous Operations: Relevant previous surgery/procedure and date(s) (History of colonoscopy History of tooth extraction History of cardiac catheterization History of heart artery stent History of lumbar fusion) Allergies: Allergies Allergy/AdvReac Type Severity Reaction Status Date / Time No Known Allergies (No Known Allergy Verified 07/09/25 09:41 Allergies*) Review of Systems Sugical H&P ROS: Negative: Constitution, Cardiovascular, Respiratory, Neurological, Psychiatric, Hem-Onc, Allergic/Immunologic, Gastrointestinal, Genitourinary, Musculoskeletal, Integumentary, Endocrine and Eyes/Ears/Nose/Throat Exam Surgical H&P Exam: Normal: HEENT, Normal: Heart, Normal: Lungs, Normal: Extremities, Normal: Abdomen, Normal: Skin and Normal: Neurological Plan Diagnosis/Plan: Unchanged I have reviewed the history and physical and performed a pertinent physical examination on my patient. No changes have occurred unless specified. Time Spent With Patient Time: Total time managing care of this patient today ____ minutes.
--- NOTE | 2025-07-09 10:48 | P.OPN-COLO_ITS ---
Colonoscopy Operative Note Operative Note Date of Service: 07/09/25 Narrative: Operative Information Procedure Description: EGD, Colonoscopy Indication: crohns Anesthesia: MAC FLEXIBLE TRANSORAL UPPER GASTROINTESTINAL ENDOSCOPY AND COLONOSCOPY PROCEDURE NOTE UPPER ENDOSCOPY Consent: Indications for the procedure and potential complications of bleeding, perforation, reaction to medications and missed diagnosis were discussed with the patient and informed consent was obtained. Instrument: Olympus GIF H 190 J mid size upper endoscope Monitoring: Vital signs and clinical assessment, continuous EKG monitoring, Pulse oximetry, Carbon Dioxide monitoring and blood pressure monitoring were done throughout the procedure. Procedure: The patient was placed in the left lateral decubitis position and pre-procedure medications were administered and a bite block was placed. The endoscope was inserted into the mouth and advanced under direct vision to the third part of duodenum. A careful inspection was made as the upper endoscope was withdrawn including a retroflexed examination of the proximal stomach; Findings and interventions are described below. Findings: Larynx:normal Esophagus: GE junction at 40 cm, diaphragm hiatus at 40 cm, mild esophagitis, bx taken from GEJ Stomach: mild patchy gastritis. Biopsies were obtained. Grade 2 flap valve on retroflexed examination of the cardia. Duodenum: mild bulbar duodenitis Intervention: Biopsies as noted above, COLONOSCOPY Instrument: Olympus variable stiffness pediatric scope 190L Colonoscopy Monitoring: Vital signs and clinical assessment, continuous EKG monitoring, Pulse oximetry, Carbon Dioxide monitoring and blood pressure monitoring were done throughout the procedure. Colon withdrawal time was 12 minutes. Procedure: The patient was placed in the left lateral decubitis position and pre-procedure medications were administered. After a digital rectal examination of the ano-rectum, the video colonoscope was inserted into the rectum and advanced through the colon to the cecum/TI. The colonoscope was slowly withdrawn in a retrograde panoramic fashion and the colon mucosa was carefully examined including a retroflexed view of the rectum. Findings and interventions are described below. Procedure Difficulty:moderate Findings: Terminal Ileum- scattered erosions and erythema, bx taken random bx taken from right, left and rectum Cecum: mild erythema Ascending Colon: normal Transverse Colon -normal Descending Colon:normal Sigmoid Colon: normal Rectum: Retroflexion with small internal hemorrhoids, grade I Anorectum - normal Colon preparation: [place] Bowel Preparation Scale Right colon; 2 Transverse colon: 2 Left colon; 2 (0 = Unprepared colon segment with mucosa not seen due to solid stool that cannot be cleared. 1 = Portion of mucosa of the colon segment seen, but other areas of the colon segment not well seen due to staining, residual stool and/or opaque liquid. 2 = Minor amount of residual staining, small fragments of stool and/or opaque liquid, but mucosa of colon segment seen well. 3 = Entire mucosa of colon segment seen well with no residual staining, small fragments of stool or opaque liquid) Impression and Post Procedure Diagnosis: Endoscopy Findings: gastritis duodenitis mild esophagitis Colonoscopy Findings: erosive ileitis internal hemorrhoids Plan: Await Pathology results Repeat Colonoscopy in 5 years due to crohns or earlier if clinically indicated High fiber diet leaflet avoid straining at stool, epsom salts and sitz bath, anusol supps or cream should be on Biologic due to small bowel involvement -will send note to Katharine Above findings were reviewed with the patient and relevant handouts were provided if indicated.
[2025-07-09 10:52] VITALS: BP 92/55; PULSE 64; RESP 12; TEMP 36.2; O2SAT 96
[2025-07-09 11:07] VITALS: BP 97/64; PULSE 71; RESP 16; TEMP 36.9; O2SAT 96
[2025-07-09 11:29] LABS: CDiff Gene PCR NEGATIVE (Negative)
[2025-07-16 03:48] LABS: Lactoferrin, Fecal, Quant. 12.78 mcg/mL (<7.25)
== END 2025-07-09 11:24 | disposition home or self-care (01) ==
PROVIDERS: PCP Physician Assistant; Visit Provider Internal Medicine Gastroenterology
PROC: (CPT 45380; principal; 2025-07-09 10:20)
DX: Z12.11 Encounter for screening for malignant neoplasm of colon (principal); K21.00 Gastro-esophageal reflux disease with esophagitis, without bleeding; E11.9 Type 2 diabetes mellitus without complications; K52.9 Noninfective gastroenteritis and colitis, unspecified; K50.00 Crohn's disease of small intestine without complications; R14.0 Abdominal distension (gaseous); K64.0 First degree hemorrhoids; K29.70 Gastritis, unspecified, without bleeding; K29.80 Duodenitis without bleeding
CPT/HCPCS: 45380; 43239; 82947; 83631; 87493; 88305; 88313; 88342; 93005; J2003; J2371; J2704

== ENCOUNTER → 2025-07-09 08:14 | Outpatient (BNV) | payer MEDICARE, SELFPAY | PROVIDERS: PCP Physician Assistant; Visit Provider Internal Medicine Gastroenterology | DX: K50.00 Crohn's disease of small intestine without complications (principal); K52.9 Noninfective gastroenteritis and colitis, unspecified; K64.0 First degree hemorrhoids; K20.90 Esophagitis, unspecified without bleeding; K29.70 Gastritis, unspecified, without bleeding; K29.80 Duodenitis without bleeding | CPT/HCPCS: 43239; 45380 ==

== ENCOUNTER → 2025-07-09 09:40 | Outpatient (BNV) | payer MEDICARE, SELFPAY | PROVIDERS: PCP Physician Assistant; Visit Provider Internal Medicine Cardiovascular Disease | DX: I44.0 Atrioventricular block, first degree (principal); I49.9 Cardiac arrhythmia, unspecified | CPT/HCPCS: 93010 ==

== ENCOUNTER 2025-07-21 09:11 | Outpatient (REF) | payer MEDICARE, SELFPAY ==
[2025-07-21 09:57] LABS: Hematocrit 44.0 % (42.0-52.0); Hemoglobin 14.6 g/dl (14.0-18.0); Mean Corpuscular HGB Conc 33.2 g/dl (31.0-36.0); Mean Corpuscular Hemoglobin 30.6 pg (27.0-33.0); Mean Corpuscular Volume 92.2 fL (80.0-98.0); NRBC Abs Auto 0.000 X10*3/uL (0.0-0.012); NRBC Pct Auto 0.0 /100WBC (0.0-0.2); Platelet Count 193 X10*3/uL (160-400); Red Blood Count 4.77 X10*6/uL (4.60-5.80); White Blood Count 6.5 X10*3/uL (4.8-10.8)
[2025-07-21 10:18] LABS: Alanine Aminotransferase 44 U/L (0-40); Albumin Level 4.3 g/dL (3.5-5.0); Alkaline Phosphatase 145 U/L (39-117); Anion Gap 12 (12-20); Aspartate Amino Transferase 44 U/L (5-37); Blood Urea Nitrogen 11 mg/dL (9-16); Calcium 9.2 mg/dL (8.4-10.2); Carbon Dioxide 26 mmol/L (22-29); Chloride 108 mmol/L (96-108); Cholesterol 132 mg/dL (<200); Estimated Glomerular Filt Rate > 60; HDL Cholesterol 33 mg/dL (>40); Potassium 3.9 mmol/L (3.3-5.1); Sodium 142 mmol/L (135-145); Total Protein 7.5 g/dL (6.5-8.0); Triglycerides 133 mg/dL (<150)
[2025-07-21 10:40] LABS: HBS Num1 3.82 mIU/mL (0-7.99); HBc Num1 0.06 S/CO (0.00-0.79); HBsAGNum1 0.30 S/CO (0.00-0.99); Hepatitis A Antibody IgM 0.24 Index (0-0.79); Hepatitis B Surface Antigen Negative (Negative); ~HepC Num1 0.27 S/CO (0.00-0.79); ~Hepatitis A Antibody IgM Nonreactive (Nonreactive); ~Hepatitis B Surface Antibody NONREACTIVE (Nonreactive); ~Hepatitis C Antibody Nonreactive (Nonreactive)
[2025-07-24 00:54] LABS: TS Negative Control Passed; TS Panel A 0; TS Panel B 0; TS Positive Control Passed; TSpotTB Negative (Negative)
== END 2025-07-21 09:12 | disposition home or self-care (01) ==
LOC: HO.LAB 09:11
PROVIDERS: Internal Medicine Gastroenterology; PCP Physician Assistant; Visit Provider Physician Assistant
DX: Z11.1 Encounter for screening for respiratory tuberculosis (principal); Z11.59 Encounter for screening for other viral diseases; Z03.89 Encounter for observation for other suspected diseases and conditions ruled out; E11.29 Type 2 diabetes mellitus with other diabetic kidney complication; R80.9 Proteinuria, unspecified; K52.9 Noninfective gastroenteritis and colitis, unspecified
CPT/HCPCS: 36415; 80053; 80061; 83036; 85027; 86481; 86704; 86706; 86709; 86803; 87340

== ENCOUNTER 2025-08-26 10:20 | Outpatient (AMB) | payer MEDICARE, SELFPAY ==
--- NOTE | 2025-08-26 10:36 | MHC.PC.OV ---
Vital Signs 08/26/25 10:38 Height 5 ft 4 in Weight 190 lb 8 oz BMI 32.7 BP 130/76 Blood Pressure Location Lt brachial Position Sitting Pulse 78 Pulse Source Pulse Oximeter Temp 97.3 F Temp Source Temporal Artery Scan Pulse Oximetry (%) 97 Oxygen Delivery Method Room Air Intake Visit Reasons: Medical visit DMII/ HTN Intake Note: Patient is here to follow up on DMII, HTN. Technical Services Manager Required: No Sas Developer Analyst: Not Required per policy Accompanied by: Self / Same As Patient Allergies No Known Allergies (No Known Allergies*) Allergy (Verified 08/26/25 11:14) Medication List - Last Reconciled 08/26/25 by Tc Peoples PA-C amlodipine 10 mg PO DAILY aspirin 81 mg PO DAILY 90 days atorvastatin 80 mg PO DAILY betamethasone dipropionate 0.05% 1 appl topical DAILY PRN 30 days blood sugar diagnostic ([employer] Verio test strips) Testing twice a day blood-glucose meter ([employer] Verio Flex Meter) Testing twice a day budesonide DR-ER 9 mg (3 x 3 mg) PO DAILY 6 weeks buprenorphine HCl ([place]uca) 450 mcg buccal Q12H cane As directed chlorhexidine gluconate 0.12% 15 mL PO TID clonazepam 1 mg PO DAILY 30 days clopidogrel 75 mg PO DAILY cyclobenzaprine 10 mg PO Q8H 30 days fludrocortisone 0.1 mg PO DAILY fluoxetine 80 mg (4 x 20 mg) PO DAILY lancets ([place] [employer] Delica Plus Lancet) Testing twice a day lisinopril 5 mg PO DAILY magnesium oxide 400 mg PO DAILY mesalamine 2.4 grams (2 x 1.2 gram) PO DAILY metformin 1,000 mg PO BID metoprolol tartrate 25 mg PO BID miscellaneous medical supply miscellaneous; TENS Unit and pads ofloxacin 0.3% 1 drp ophthalmic (eye) BID 30 days omeprazole 40 mg PO DAILY [PM 360 [employer] N[employer]is[employer] As directed] prednisolone acetate 1% 1 drp ophthalmic (eye) QID simethicone (Gas-X Extra Strength) 125 mg PO TID PRN 30 days Tobacco use date assessed: 08/26/25 Fall risk assessment: No Falls in past year Last assessed Fall Risk: 08/26/25 Dental Screening Dental Screen Date: 11/26/24 HPI Medical visit DMII/ HTN HPI Details Patient is a 75 year-old male? here today for a medical follow-up visit..? Patient has a past medical history significant for generalized anxiety disorder, coronary artery disease ,lumbar radiculopathy failed back syndrome, hypertension, inflammatory bowel disease, type 2 diabetes. Crohn's colitis: Has been diagnosed with Crohn's recently now followed by [facility]. He does do infusions for his Crohn's which has been helpful in reducing his loose stool and abdominal pain. He still has some left lower abdominal pain to deep palpation. .. HTN:? blood pressure slightly elevated today in office. He reports having elevated blood pressure readings in the mornings 140s 150s systolic. Will add on lisinopril for better blood pressure control and renal protection.? Fortunately patient asymptomatic without any headaches, dizziness, chest discomfort palpitations..?? .. DMII: REport blood sugar at home have been stable ( 125)- most recent A1c has been stable.? He is due for fasting labs and advised to get these done IAN .. Coronary artery disease:? Continues on high dose statin and dualanti-platelet therapy.? Will continue to follow lipid panel goal LDL to be below 100 optimally below 70. 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 PFSH Medical History GERD (gastroesophageal reflux disease) Crohn disease Cervical radiculopathy Diabetic nephropathy Hypertension Diabetes mellitus Depression Type 2 diabetes mellitus without complications Coronary artery disease (CAD) excluded Failed back syndrome, lumbar Poor dental hygiene Surgical History History of colonoscopy History of tooth extraction History of cardiac catheterization History of heart artery stent History of lumbar fusion Family History Father No problems noted. Mother Past heart attack Diabetes Hypertension Sister Lung cancer Sister Chronic kidney failure Brother Myocardial infarction Sister Myocardial infarction Social History Housing: House Are you a primary child caregiver to a significant other at home: No Do you presently have visiting nurse or other home services: No Alcohol intake: never Patient Tobacco Use Status: Former Tobacco user e-Cigarette/Vaping Use: Never Used Second Hand Smoke Exposure: Yes service: Yes (in [employer]) Current occupational status: disabled Current occupation: disabled Cognitive needs: Yes (has a cane and has a walker at home) Hearing needs: Yes (hearing loss in left ear) Vision needs: Yes (wears glasses.) Questionnaire Thrive Questionnaire Date Thrive assessed: 11/26/24 [facility] AMB Questionnaire [facility] Date [facility] - 7 assessed: 11/26/24 Source: Developed by Drs. Fuad Buchanan, Justina Leyva, [employer] and colleagues, with an educational yolanda from [employer]. Review of Systems Const Denies headache(s) Eyes Denies loss of vision ENT Denies vertigo, Denies dizziness, Denies headache(s) and Denies sore throat Card Denies chest pain, Denies leg edema and Denies lightheadedness Resp Denies cough, Denies hemoptysis and Denies wheezing GI Denies abdominal pain, Denies melena, Denies constipation, Denies diarrhea and Denies vomiting Denies dysuria, Denies urinary frequency and Denies urinary urgency Musc Denies arthralgias, Denies joint swelling, Denies numbness and Denies tingling Neuro Denies Abnormal speech present, Denies behavioral changes, Denies vertigo, Denies dizziness, Denies headache(s), Denies loss of vision, Denies memory loss, Denies numbness and Denies tingling Psych Denies anxiety, Denies behavioral changes, Denies depression, Denies memory loss and Denies panic attacks Roger/Lymph Denies easy bleeding and Denies easy bruising Aller/Immun Denies wheezing Physical exam (Primary Care) Vital Signs: Last Vital Signs Temp 97.3 F 08/26/25 10:38 Pulse 78 08/26/25 10:38 BP 130/76 08/26/25 10:38 Pulse Ox 97 08/26/25 10:38 Oxygen Delivery Method Room Air 08/26/25 10:38 BMI result Body Mass Index 32.7 Tobacco/Smoking Status: Tobacco use Status Tobacco use date assessed 08/26/25 08/26/25 10:42 Patient Tobacco Use Status Former Tobacco user 08/26/25 10:42 e-Cigarette/Vaping Use Never Used 08/26/25 10:42 Thrive Assessment: Date of Thrive Assessment Date Thrive assessed 11/26/24 08/26/25 10:42 Const General: healthy appearing, no acute distress, alert and awake Nutritional Appearance: well nourished Orientation/consciousness: oriented to person, oriented to place and oriented to time HENMT Ears: TM's normal bilaterally General nose exam: Normal nasal mucous membranes and turbinates present Eyes Conjunctivae: conjunctivae normal Sclerae: sclerae normal Pupils: Equal, round and reactive pupils present Neck Neck: Yes no lymphadenopathy and Yes no JVD Thyroid: Thyroid normal Carotids: no bruits Resp Effort & Inspection: normal respiratory effort and not tachypneic Auscultation: no crackles, no rales, no rhonchi and no wheezes Cardio Rate: regular rate Rhythm: regular rhythm Heart sounds: no murmurs and normal S1 and S2 GI Palpation (GI): Soft to palpation, nontender, no hepatomegaly and no splenomegaly Auscultation: normal bowel sounds Abdomen image:  1. TENDERNESS TO DEEP PALPATION IN THE AREA OUTLINED. NO NOTABLE MASSES OR LUMPS. Skin General skin exam: no rashes or lesions noted and dry skin Neuro General: oriented to person, oriented to place and oriented to time Cranial nerves: Yes Equal, round and reactive pupils present Speech: No Abnormal speech present Gait exam (Neuro): Normal gait present Motor exam (neuro): no tremor noted Extrem Right upper extremity: full ROM Left upper extremity: full ROM Right lower extremity: full ROM; no edema Left lower extremity: full ROM; no edema Psych Mental Status: mental status grossly normal Speech and movement: Normal speech and movement present Affect: normal affect Attitude: cooperative Thought process: Normal thought process present Coding Level of Care Code Est Pt Level 4 (32498) Diagnoses Type 2 diabetes mellitus with microalbuminuria, without long-term current use of insulin E11.29; R80.9 Diabetes mellitus type: type 2 Diabetes mellitus half-way insulin use: without half-way use Diabetes mellitus complication status: with kidney complications Diabetes mellitus complication detail: with microalbuminuria Coronary artery disease (CAD) excluded Z03.89 Crohn's disease of small intestine without complication K50.00 Gastrointestinal tract location: small intestine Digestive disease complication type: without complication Primary hypertension I10 Hypertension type: primary hypertension Assessment & Plan Assessment & Plan (1) Diabetes mellitus: Code(s): E11.9 - Type 2 diabetes mellitus without complications Category: Medical Qualifiers: Diabetes mellitus type: type 2 Diabetes mellitus half-way insulin use: without half-way use Diabetes mellitus complication status: with kidney complications Diabetes mellitus complication detail: with microalbuminuria Qualified Code(s): E11.29 - Type 2 diabetes mellitus with other diabetic kidney complication; R80.9 - Proteinuria, unspecified Plan: Patient's type 2 diabetes well controlled with current dose of metformin 1000 b.i.d.. Will continue to follow A1c. Goal A1c to remain below 7.0 (2) Coronary artery disease (CAD) excluded: Code(s): Z03.89 - Encounter for observation for other suspected diseases and conditions ruled out Category: Medical Plan: Patient continues to follow candy forming machine operator. Does have coronary artery stents. Continues on high dose statin therapy and dual antiplatelet therapy. Goal LDL is to remain below 70 (3) Crohn disease: Code(s): K50.90 - Crohn's disease, unspecified, without complications Category: Medical Qualifiers: Gastrointestinal tract location: small intestine Digestive disease complication type: without complication Qualified Code(s): K50.00 - Crohn's disease of small intestine without complications Plan: The patient's left lower quadrant abdominal pain is likely due to a flare of his Crohn's disease. A course of prednisone was discussed as a treatment option to manage the inflammation, but the patient declined at this time. It was noted that a CT scan would be more beneficial than a standard X-ray for further evaluation if needed. The patient will continue to monitor his symptoms and follow up with his specialist tomorrow. (4) Hypertension: Code(s): I10 - Essential (primary) hypertension Category: Medical Qualifiers: Hypertension type: primary hypertension Qualified Code(s): I10 - Essential (primary) hypertension Plan: Patient's blood pressure acceptable today in office, will continue his current dose of antihypertensive medication with goal blood pressure to remain below 140/80 Orders: Orders Microalbumin, Random (w Creat) Today I10 - Essential (primary) hypertension Complete Blood Count no Diff Today E11.29 - Type 2 diabetes mellitus with other diabetic kidney complication, R80.9 - Proteinuria, unspecified Lipid Panel Today Z03.89 - Encounter for observation for other suspected diseases and conditions ruled out Prostate Specific Antigen Scr Today Z03.89 - Encounter for observation for other suspected diseases and conditions ruled out, Z12.5 - Encounter for screening for malignant neoplasm of prostate Hemoglobin A1c Today E11.29 - Type 2 diabetes mellitus with other diabetic kidney complication, R80.9 - Proteinuria, unspecified Comprehensive [place]. Panel Fast Today E11.29 - Type 2 diabetes mellitus with other diabetic kidney complication, R80.9 - Proteinuria, unspecified Medications: Refilled atorvastatin 80 mg PO DAILY 90 tabs 3RF betamethasone dipropionate 0.05% 1 appl topical DAILY PRN 45 grams 1RF skin irritation 30 days L30.9 - Dermatitis, unspecified clopidogrel 75 mg PO DAILY 90 tabs 3RF Z03.89 - Encounter for observation for other suspected diseases and conditions ruled out metformin 1,000 mg PO BID 180 tabs 2RF
[2025-08-26 10:38] VITALS: BP 130/76; PULSE 78; TEMP 36.3; O2SAT 97; BMI 32.7
--- OUTSIDE RECORDS SUMMARY | 2025-08-26 11:36 | XMS_ITS | Clinical Summary ---
Author Organization [facility] Address [address] [place] [address] Phone Care Team Providers Care Retail Bakery Manager Name Role Phone Tc Peoples Primary Care Provider Allergies No known active allergies Medications atorvastatin (LIPITOR) 80 mg tablet Take 1 [...] 1 (one) time each day. Active budesonide DR (ENTOCORT EC) 3 mg 24 hr capsule [...] throat if needed for wound care. Active fludrocortisone (FLORINEF) 0.1 mg tablet TAKE 1 TABLET BY MOUTH EVERY DAY 90 tablet 1 5 Active metoprolol tartrate (LOPRESSOR) 25 mg tablet TAKE 1 TABLET BY MOUTH TWICE A DAY 180 tablet 1 5 Active Active Problems Problem Noted Date Diagnosed Date Coronary arteriosclerosis 02/17/2025 Assessment & Plan (02/17/2025 2:11 PM EDT): Patient has history of coronary artery disease with history of MT in 2004. Patient had drug-eluting stent placed [...] DX:[place] tid artery occlusion Coronary arteriosclerosis in [place] artery 07/22/2013 DX:Coronary arteriosclerosis in [place] artery Cardiovascular system problem 07/22/2013 DX :Cardiovascular system problem Benign essential hypertension 07/22/2013 DX :Benign essential hypertension Pure hypercholesterolemia 07/22/2013 DX:Pur e hypercholesterolemia Palpitations DX:Palpitations Asymptomatic carotid artery stenosis without infarction DX:Asymptomatic carotid ciro ry stenosis without infarction Disorder of cardiovascular system DX:Disorder of cardiovascular system Diabetes mellitus, type II ( [facility]/HCC V24, CMS/HCC V28) DX:Diabetes mellitus, type I I ([facility]) Chronic back pain DX:Chronic angela k pain [...] Years Used Date Smoking Tobacco: Former Cigarettes 15 0 09/04/1983 - 09/04/1998 Smokeless Tobacco: Never Alcohol Use Standard Drinks/Week Comments Not Currently 0 (1 standard drink = 0.6 oz pur e alcohol) Sex and Gender Information Value Date Recorded Sex Assigned at Not on file Legal Sex Male 10:56 AM EST Gender Identity Not on file Sexual Orientation Not on file Last Filed Vital Signs Vital Sign Reading [...] Health Maintenance Due Date Last Done Comments Colorectal Cancer Screening: Colonoscopy 1950 Drug Screen 1950 Non-Opioid Controlled Substance Agreement 1950 DTaP,Tdap,and Td Vaccines (1 - Tdap) 02/22/1971 Zoster Vaccines (1 of 2) 02/22/2002 Pneumococcal Vaccine: 50+ Years (2 of 2 - PCV) 11/14/2020 11/15/2019 Abdominal Aortic Aneurysm (AAA) Screen 08/02/2022 Cholesterol Screening (Lipid Panel) 08/02/2022 Falls Risk Assessment 08/02/2022 Hepatitis C [...] topic Insurance [employer] MEDICARE ADVANTAGE Care Teams Retail Bakery Manager Relationship Specialty Start Date End Date Tc Peoples PA [address] [place] [address] [phone] PCP - General Physician Tie Buyer 02/17/25
== END 2025-08-26 11:30 | disposition home or self-care (01) ==
LOC: HO.HMCH 10:21
PROVIDERS: PCP Physician Assistant; Visit Provider Physician Assistant
DX: E11.29 Type 2 diabetes mellitus with other diabetic kidney complication (principal); R80.9 Proteinuria, unspecified; Z03.89 Encounter for observation for other suspected diseases and conditions ruled out; K50.00 Crohn's disease of small intestine without complications; I10 Essential (primary) hypertension

== ENCOUNTER → 2025-08-26 10:20 | Outpatient (BNVA) | payer MEDICARE, SELFPAY | PROVIDERS: PCP Physician Assistant; Visit Provider Physician Assistant | DX: I10 Essential (primary) hypertension (principal); E11.29 Type 2 diabetes mellitus with other diabetic kidney complication; R80.9 Proteinuria, unspecified; K50.00 Crohn's disease of small intestine without complications; L30.9 Dermatitis, unspecified | CPT/HCPCS: 99212 ==

== ENCOUNTER 2025-08-27 14:04 | Outpatient (AMB) | payer MEDICARE, SELFPAY ==
--- OUTSIDE RECORDS SUMMARY | 2025-08-27 14:07 | XMS_ITS | Clinical Summary ---
Author Organization [facility] Modern Message [facility] Address [address] [place] [address] Phone Care Team Providers Care Ladle Puller Name Role Phone Tc Peoples Primary Care [...] DX:[place] tid artery occlusion Coronary arteriosclerosis in [place] artery 07/22/2013 DX:Coronary arteriosclerosis in [place] artery Cardiovascular system problem 07/22/2013 DX :Cardiovascular system problem Benign essential hypertension 07/22/2013 DX :Benign essential hypertension Pure hypercholesterolemia 07/22/2013 DX:Pur e hypercholesterolemia Palpitations DX:Palpitations Asymptomatic carotid artery stenosis without infarction DX:Asymptomatic carotid ciro ry stenosis without infarction Disorder of cardiovascular system DX:Disorder of cardiovascular system Diabetes mellitus, type II ( [facility]/HCC V24, CMS/HCC V28) DX:Diabetes mellitus, type I I ([facility]) Chronic back pain DX:Chronic angela k pain [...] topic Insurance [employer] MEDICARE ADVANTAGE Care Teams Ladle Puller Relationship Specialty Start Date End Date Tc Peoples PA [address] [place] [address] [phone] PCP - General Physician Broach Operator 02/17/25
--- NOTE | 2025-08-27 14:16 | A.OFFVIS_ITS ---
Vital Signs 08/27/25 14:19 Height 5 ft 4 in Weight 188 lb 14.725 oz BMI 32.4 BP 149/69 H Blood Pressure Location Lt brachial Position Sitting Pulse 71 Intake Visit Reasons: s/p colo and egd iraheta Intake Note: Patient follow up for EGD/Colonoscopy results. Patient cc: LLQ and abdominal pain with bloating, heartburn with a lot of coughing, diarrhea with meal, and denies any other GI issues. 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 Continue low FODMAP diet as best as he can. Patient will be scheduled for colonoscopy and upper endoscopy. He will continue taking the omeprazole daily. Avoid dietary triggers and late night snacking. Staying upright for minimum 3 hours after meals discussed with patient. Message sent to nurse navigator to call cardiology office for clearance. Patient might need to be seen as he was not seen since early of 2023. Patient reports that he did call the office and ask for appointment. What to expect before during and after procedure discussed with patient. Stressed the importance of clear liquid diet and good bowel prep day before procedure. I will see patient after the procedure, sooner on as needed basis. He is agreeable to this plan and verbalizes understanding of instructions. He was given the opportunity to ask questions and all questions answered. ? Thank you for allowing me to participate in his care New polyethylene glycol 3350 (Miralax) As directed by gastroenterology department at [facility] 238 grams PO ONCE 238 grams 0RF Z12.11 bisacodyl (Dulcolax (bisacodyl)) take 4 tabs at noon the day before your colonoscopy 20 mg (4 x 5 mg) PO ONCE 1 day 4 tabs 0RF Z12.11 UPPER ENDOSCOPY AND COLONOSCOPY Findings: Larynx:normal Esophagus: GE junction at 40 cm, diaphragm hiatus at 40 cm, mild esophagitis, bx taken from GEJ Stomach: mild patchy gastritis. Biopsies were obtained. Grade 2 flap valve on retroflexed examination of the cardia. Duodenum: mild bulbar duodenitis Intervention: Biopsies as noted above, COLONOSCOPY Instrument: Olympus variable stiffness pediatric scope 190L Colonoscopy Monitoring: Vital signs and clinical assessment, continuous EKG monitoring, Pulse oximetry, Carbon Dioxide monitoring and blood pressure monitoring were done throughout the procedure. Colon withdrawal time was 12 minutes. Procedure: The patient was placed in the left lateral decubitis position and pre-procedure medications were administered. After a digital rectal examination of the ano-rectum, the video colonoscope was inserted into the rectum and advanced through the colon to the cecum/TI. The colonoscope was slowly withdrawn in a retrograde panoramic fashion and the colon mucosa was carefully examined including a retroflexed view of the rectum. Findings and interventions are described below. Procedure Difficulty:moderate Findings: Terminal Ileum- scattered erosions and erythema, bx taken random bx taken from right, left and rectum Cecum: mild erythema Ascending Colon: normal Transverse Colon -normal Descending Colon:normal Sigmoid Colon: normal Rectum: Retroflexion with small internal hemorrhoids, grade I Anorectum - normal Colon preparation: [place] Bowel Preparation Scale Right colon; 2 Transverse colon: 2 Left colon; 2 (0 = Unprepared colon segment with mucosa not seen due to solid stool that cannot be cleared. 1 = Portion of mucosa of the colon segment seen, but other areas of the colon segment not well seen due to staining, residual stool and/or opaque liquid. 2 = Minor amount of residual staining, small fragments of stool and/or opaque liquid, but mucosa of colon segment seen well. 3 = Entire mucosa of colon segment seen well with no residual staining, small fragments of stool or opaque liquid) Impression and Post Procedure Diagnosis: Endoscopy Findings: gastritis duodenitis mild esophagitis Colonoscopy Findings: erosive ileitis internal hemorrhoids Plan: Await Pathology results Repeat Colonoscopy in 5 years due to crohns or earlier if clinically indicated High fiber diet leaflet avoid straining at stool, epsom salts and sitz bath, anusol supps or cream should be on Biologic due to small bowel involvement -will send note to Katharine Above findings were reviewed with the patient and relevant handouts were provided if indicated. PATHOLOGY RESULTS: Diagnosis A. Duodenum, biopsy: Duodenal mucosa with focally blunted villi and features of chronic/non-specific duodenitis. B. Stomach, biopsy: Gastric body mucosa with congestion and minimal chronic inactive gastritis; negative for H. pylori, intestinal metaplasia and dysplasia. C. Gastroesophageal junction, biopsy: Squamocolumnar mucosa with mild chronic inflammation and rare goblet cells; negative for dysplasia (see comment). D. Terminal ileum, biopsy: Chronic ileitis with minimal activity; no granulomas or dysplasia (see comment). E. Colon, right, biopsy: Focal minimal active colitis; no granulomas or dysplasia (see comment). F. Colon, transverse, biopsy: Colonic mucosa with no specific change; no colitis, granulomas or dysplasia. G. Colon, left, biopsy: Colonic mucosa with lymphoid aggregates and no specific change; no colitis, granulomas or dysplasia. H. Colon, rectum, biopsy: Colonic mucosa with lymphoid aggregates and no specific change; no colitis/ proctitis, granulomas or dysplasia. Comment: (C): The findings would be suggestive of Ortega's esophagus if the biopsies were taken from above the anatomic gastroesophageal junction. Clinical and endoscopic correlation is advised. (D and E): These findings may be seen with NSAIDs/drugs, resolving infection, or early chronic inflammatory bowel disease and clinical correlation is necessary. TODAY'S VISIT Patient is here today for follow-up and to discuss upper endoscopy and colonoscopy results. Patient was diagnosed with Zaret. Inflammation involving small bowel. Patient will be started on biologic. Patient is taking mesalamine, however he only takes a 1 tablet daily. He still continues with postprandial diarrhea. Not really following low FODMAP diet. Patient denies melena, hematochezia, unintentional weight loss or ribbon like stools. Patient denies any dyspepsia, dysphagia or odynophagia. He does reports acid reflux and coughing 1 hour to 2 hours after meals. Patient denies any nausea or vomiting. 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 Mother Past heart attack Diabetes Hypertension Sister Lung cancer Sister Chronic kidney failure Brother Myocardial infarction Sister Myocardial infarction Social History Housing: House Are you a primary rn intensive care unit to a significant other at home: No Do you presently have visiting nurse or other home services: No Alcohol intake: never Patient Tobacco Use Status: Former Tobacco user e-Cigarette/Vaping Use: Never Used Second Hand Smoke Exposure: Yes service: Yes (in [employer]) Current occupational status: disabled Current occupation: disabled Cognitive needs: Yes (has a cane and has a walker at home) Hearing needs: Yes (hearing loss in left ear) Vision needs: Yes (wears glasses.) Review of Systems Const Denies weight gain and Denies weight loss ENT Reports no additional complaints, Denies dysphagia and Denies odynophagia Card Reports no additional complaints Resp Reports no additional complaints GI Reports abdominal pain, Reports belching, Denies melena, Reports bloating, Denies change in bowel habits, Reports constipation, Denies dysphagia, Denies excessive flatus, Denies dyspepsia, Reports heartburn, Denies diarrhea, Reports loose stools, Denies nausea, Denies odynophagia and Denies vomiting Reports no additional complaints Musc Reports no additional complaints Neuro Reports no additional complaints Psych Reports no additional complaints Endo Reports no additional complaints Physical Exam Vital Signs: Last Vital Signs Pulse 71 08/27/25 14:19 BP 149/69 H 08/27/25 14:19 BMI result Body Mass Index 32.4 Const General: healthy appearing, no acute distress and well developed Nutritional Appearance: well nourished and obese Orientation/consciousness: patient oriented x3 Resp Effort & Inspection: normal respiratory effort, able to speak in complete sentences, no tracheal deviation and symmetric chest movement Auscultation: clear to auscultation bilaterally Cardio Rate: regular rate GI Inspection: Yes normal to inspection, No distended and Yes obesity Palpation (GI): Soft to palpation, not firm, nontender and No hepatosplenomegaly present Auscultation: normal bowel sounds General: Yes no CVA tenderness Back/Spine/Pelvis Back: no CVA tenderness Skin General skin exam: elasticity normal, turgor normal and dry skin Neuro General: patient oriented x3 Psych Appearance: grossly normal Mental Status: mental status grossly normal Assessment & Plan Assessment & Plan (1) GERD (gastroesophageal reflux disease): Code(s): K21.9 - Gastro-esophageal reflux disease without esophagitis Category: Medical Qualifiers: Esophagitis presence: without esophagitis Qualified Code(s): K21.9 - Gastro-esophageal reflux disease without esophagitis (2) IBD (inflammatory bowel disease): Code(s): K52.9 - Noninfective gastroenteritis and colitis, unspecified Category: Medical (3) Crohn disease: Code(s): K50.90 - Crohn's disease, unspecified, without complications Category: Medical Qualifiers: Gastrointestinal tract location: small intestine Digestive disease complication type: without complication Qualified Code(s): K50.00 - Crohn's disease of small intestine without complications (4) RUQ abdominal pain: Code(s): R10.11 - Right upper quadrant pain Category: Medical (5) Chronic abdominal pain: Code(s): R10.9 - Unspecified abdominal pain; G89.29 - Other chronic pain Category: Medical (6) LLQ abdominal pain: Code(s): R10.32 - Left lower quadrant pain (7) Postprandial abdominal bloating: Code(s): R14.0 - Abdominal distension (gaseous) (8) Postprandial diarrhea: Code(s): K52.9 - Noninfective gastroenteritis and colitis, unspecified (9) Ortega's esophagus determined by biopsy: Code(s): K22.70 - Ortega's esophagus without dysplasia Category: Medical Plan Will increase mesalamine. Patient has appointment at [facility] on the of this month. Will check CT of abdomen and pelvis. Patient's colonoscopy was back in July and his symptoms are getting worse after the procedure. Patient will take MiraLax daily. Even though his postprandial loose stools every empty his bowels completely. Patient was diagnosed with Ortega's. He will continue to take omeprazole daily. Avoid dietary triggers and late night snacking. Staying upright for minimum 3 hours after meals discussed with patient. Patient will follow-up in the office in 4 months. He will call us if he will have any concerning symptoms. He is agreeable to this plan and verbalizes understanding of instructions. He was given the opportunity to ask questions and all questions answered. Thank you for allowing me to participate in his care Orders: Orders Blood Urea Nitrogen 08/27/25 R10.11 - Right upper quadrant pain CT abdomen pelvis w IV con 08/27/25 R10.9 - Unspecified abdominal pain Creatinine 08/27/25 R10.11 - Right upper quadrant pain Medications: New polyethylene glycol 3350 (Miralax) 17 grams PO DAILY 510 grams 2RF Changed From mesalamine 2.4 grams (2 x 1.2 gram) PO DAILY 180 tabs 3RF To mesalamine 2.4 grams (2 x 1.2 gram) PO DAILY 180 tabs 3RF Coding Level of Care Code Est Pt Level 4 (60650) Add On Problem Visit Only Diagnoses Gastroesophageal reflux disease without esophagitis K21.9 Esophagitis presence: without esophagitis IBD (inflammatory bowel disease) K52.9 Crohn's disease of small intestine without complication K50.00 Gastrointestinal tract location: small intestine Digestive disease complication type: without complication RUQ abdominal pain R10.11 Chronic abdominal pain R10.9; G89.29 LLQ abdominal pain R10.32 Postprandial abdominal bloating R14.0 Postprandial diarrhea K52.9 Ortega's esophagus determined by biopsy K22.70 Time Spent (min) 50 Comment 25 minutes spent with patient and additional 15 minutes spent reviewing his r ecords
[2025-08-27 14:19] VITALS: BP 149/69; PULSE 71; BMI 32.4
== END 2025-08-27 15:12 | disposition home or self-care (01) ==
LOC: HO.HGI 14:05
PROVIDERS: Visit Provider Nurse Practitioner Family
DX: K21.9 Gastro-esophageal reflux disease without esophagitis (principal); K52.9 Noninfective gastroenteritis and colitis, unspecified; K50.00 Crohn's disease of small intestine without complications; R10.11 Right upper quadrant pain; R10.9 Unspecified abdominal pain; G89.29 Other chronic pain; R10.32 Left lower quadrant pain; R14.0 Abdominal distension (gaseous); K22.70 Barrett's esophagus without dysplasia
CPT/HCPCS: 99214; G2211

== ENCOUNTER → 2025-08-27 14:04 | Outpatient (BNVA) | payer MEDICARE, SELFPAY | PROVIDERS: Visit Provider Nurse Practitioner Family | DX: K21.9 Gastro-esophageal reflux disease without esophagitis (principal); K52.9 Noninfective gastroenteritis and colitis, unspecified; K50.00 Crohn's disease of small intestine without complications; R10.11 Right upper quadrant pain; R10.32 Left lower quadrant pain; G89.29 Other chronic pain; R14.0 Abdominal distension (gaseous); K22.70 Barrett's esophagus without dysplasia; Z79.899 Other long term (current) drug therapy | CPT/HCPCS: 99212 ==